=== PATIENT | female | born 1940 | race Caucasian/White ===

== ENCOUNTER 2016-09-19 13:19 | Inpatient (IN) | payer MEDICARE ==
[~2016-09-19] VITALS: Ht 160 cm; Wt 75.8 kg
[~2016-09-19 13:19] MED LIST: CARB0.5D16 RIGHT EYE; COMMODE 3:1; CYMB60CA PO; HCTZ25 PO; LISI40TA PO; PROT40TA PO; SIMV40TA PO; TAB-TAB PO; TOPR50TA PO; WALKER ROLLING; WHEELCHAIR RENTAL RA; XANA1TAB6 PO; ZOLP10TA3 PO
[2016-09-19 13:44] VITALS: BP 109/81; PULSE 116; RESP 20; TEMP 98.1; O2SAT 94
[2016-09-19] MEDS ORDERED: SODIUM CHLOR 0.9% 1000 ML INJ 1,000 ML IV SCH (14:02)
[2016-09-19] MEDS ORDERED: DIPHTH/TETANUS/ACEL PERTUSSIS (BOOSTER) 0.5 ML VIAL/PFS IM ONE (14:15)
[2016-09-19] MEDS ORDERED: ONDANSETRON HCL 4 MG/2 ML VIAL IVP ONE (14:15)
[2016-09-19] MEDS ORDERED: SODIUM CHLORIDE 0.9% FLUSH 5 ML FLUSH IVF PRN ×2 (14:15→20:00)
[2016-09-19] MEDS ORDERED: MORPHINE SULFATE 4 MG/ML INJ IV ONE (14:15)
[2016-09-19] MEDS ORDERED: LIDOCAINE 1%/EPINEPHrine 1:100,000 SOLN 20 ML VIAL INFIL ONE (14:15)
--- NOTE | 2016-09-19 14:15 | PD ---
HPI Chief Complaint: Syncope/Near-Syncope Time Seen by Provider: 13:49 Travel History International Travel<30 days: No Contact w/Intl Traveler<30days: No Traveled to known affect area: No History of Present Illness HPI The patient is a 76-year-old female who presents to the emergency department after a fall at home. According to the , who is a physician, the patient has a history of vertigo. The patient has been treated for vertigo in the past and is currently being referred to [place], [place], for vestibular training. The patient had an episode of vertigo earlier today and tripped and fell at home. The thinks her mother that a loss of consciousness because the patient was slow to respond initially. Upon arrival the patient is awake and alert, does complain of mild vertigo with spinning. The patient does note some pain to left aspect of the head, the right shoulder, left rib cage, and the left aspect of the abdomen. The patient also complains of mild back pain. The patient denies any numbness or tingling of the upper or lower extremities. Patient's last tetanus shot is unknown. The patient's symptoms are moderate, exacerbated after falling, there are no current alleviating factors. PFSH Past Medical History Asthma: Yes Anxiety: Yes Depression: Yes Cancer: Yes (LEFT TONGUE) Cardiovascular Problems: Yes High Cholesterol: Yes Chemotherapy: No Diabetes: No Diminished Hearing: Yes ([place]) Endocrine: No Gastrointestinal Disorders: Yes (ABD CELLULITUS, MESH INFECTION) Gout: Yes Hepatitis: No Hiatal Hernia: No Hypertension: Yes Immune Disorder: No Medical other: No Musculoskeletal: No Neurologic: No Respiratory: Yes (HX PULMONARY EDEMA) Radiation Therapy: No Thyroid Disease: No PNEUMOCCOCAL Vaccine (Year): 1 Menopausal: Yes Past Surgical History Abdominal Surgery: Yes (FAVIAN,COLOSTOMY AND REVERSAL, HERNIA REPAIR UMBILICALX 2,ABDOMINAL HERNIA) Section: Yes Gynecologic Surgery: Yes (C SECTION X 2,HYSTERECTOMY) Hysterectomy: Yes (TOTAL) Oral Surgery: Yes (T&A,LASER RIGHT SIDE TONGUE) Pacemaker: No Other Surgery: Yes (COLON RESECTION) Social History Alcohol Use: No Tobacco Use: No Substance Use: No Allergies-Medications (Allergen,Severity, Reaction): Coded Allergies: Cephalosporins (Verified Allergy, Severe, 03/22/14) ANAPHYLACTIC REACTION Codeine (Verified Allergy, Severe, Rash, 03/22/14) Dilaudid (Unverified Allergy, Severe, 03/22/14) Hydrocodone (Verified Allergy, Severe, 03/22/14) ANAPHYLACTIC REACTION Meperidine (Verified Allergy, Severe, HALLUCINATION, 03/22/14) Penicillin (Verified Allergy, Severe, 03/22/14) HIVES Percocet (Verified Allergy, Severe, 03/22/14) PATIENT STATED COULD NOT TAKE IN PACU 12/03/11 Sulfa (Verified Allergy, Severe, 03/22/14) NAUSEA Reported Meds & Prescriptions Reported Meds & Active Scripts Active Hydrodiuril (Hydrochlorothiazide) 25 Mg Tab 25 Mg PO DAILY Prinivil (Lisinopril) 40 Mg Tab 40 Mg PO DAILY Tears Naturale (Artificial Tears) 15 Ml Soln 1 Drop RIGHT EYE DIRECTED 30 Days Cymbalta (Duloxetine HCl) 60 Mg Cap 60 Mg PO DAILY Ambien 10 Mg Tab (Zolpidem Tartrate) 10 Mg Tab 10 Mg PO HS PRN Xanax 1 mg (Alprazolam) 1 Mg Tab 1 Mg PO TID PRN Protonix (Pantoprazole Sodium) 40 Mg Tabdr 40 Mg PO DAILY Toprol Xl (Metoprolol Succinate) 50 Mg Tabcr 50 Mg PO BID Multivitamin (Multivitamins) 1 Tab Tab 1 Tab PO DAILY Commode 3:1 (Device) Device 1 Ea Wheelchair Rental Removable Arms (Device) Device 1 Ea Walker Rolling (Device) Device 1 Ea Reported Simvastatin 40 Mg Tab 1 Tab PO HS Review of Systems Except as stated in HPI: all other systems reviewed are Neg Eyes: No: Blurred Vision HENT: Positive: Headaches, Vertigo, Neck Pain Cardiovascular: Positive: Chest Pain or Discomfort (left chest wall pain) Respiratory: No: Shortness of Breath Gastrointestinal: Positive: Abdominal Pain, No: Nausea, Vomiting Musculoskeletal: Positive: Pain (right shoulder pain) Neurologic: Positive: Change in Mentation (possible LOC), No: Focal Abnormalities, Paresthesia, Sensory Disturbance Physical Exam Narrative GENERAL: Awake, alert, pleasant 76-year-old female who appears her stated age and is in no acute respiratory distress. SKIN: Superficial abrasion to the right forearm. Superficial laceration above left eyebrow. Old appearing ecchymosis and thin skin to the posterior aspect of the right hand and right forearm.. HEAD: Atraumatic. Normocephalic. EYES: Pupils equal and round. Pupils are 3 mm bilateral and reactive. ENT: No nasal bleeding or discharge. Slightly dry mucous membranes. NECK: Trachea midline. No JVD. Cervical collar in place. CARDIOVASCULAR: Regular rate and rhythm. No murmur appreciated. Tender to palpation over the lateral left chest wall. RESPIRATORY: No accessory muscle use. Clear to auscultation. Breath sounds equal bilaterally. GASTROINTESTINAL: Abdomen soft, tender to palpation over the left upper quadrant as well as mild tenderness of the right upper quadrant. MUSCULOSKELETAL: Tender palpation proximal right humerus. Unable to extend or abduct the right shoulder. Patient is able to extend the right elbow as well as supinate and pronate the right forearm. Patient is able to flex the hips and knees bilaterally, however, causes pain to the mid low back. NEUROLOGICAL: Awake and alert. No obvious cranial nerve deficits. Motor grossly within normal limits. Normal speech. Alert and oriented 4. Follows commands without difficulty. PSYCHIATRIC: Appropriate mood and affect; insight and judgment normal. Data Data Last Documented VS Vital Signs Date Time Temp Pulse Resp B/P Pulse Ox O2 Delivery O2 Flow Rate FiO2 09/19/16 16:47 88 Room Air 09/19/16 16:00 109 18 135/79 2 09/19/16 13:44 98.1 Orders Basic Metabolic Panel (Bmp) (09/19/16 14:02) Complete Blood Count With Diff (09/19/16 14:02) Prothrombin Time / Inr (Pt) (09/19/16 14:02) Act Partial Throm Time (Ptt) (09/19/16 14:02) Type And Screen (09/19/16 14:02) Chest, Single Ap (09/19/16 14:02) Ct Brain W/O Iv Contrast(Rout) (09/19/16 14:02) Ct Cerv Spine W/O Contrast (09/19/16 14:02) Iv Access Insert/Monitor (09/19/16 14:02) Ecg Monitoring (09/19/16 14:02) Oximetry (09/19/16 14:02) Oxygen Administration (09/19/16 14:02) Morphine Inj (Morphine Inj) (09/19/16 14:15) Ondansetron Inj (Zofran Inj) (09/19/16 14:15) Itbc-Qvu-Cgwmma (Booster) Inj (Boostrix (09/19/16 14:15) Sodium Chlor 0.9% 1000 Ml Inj (Ns 1000 M (09/19/16 14:02) Sodium Chloride 0.9% Flush (Ns Flush) (09/19/16 14:15) Shoulder, Limited(2vws) (09/19/16 ) Lidocai-Epi 1%-1:100,000 Inj (Xylocaine- (09/19/16 14:15) Consult Vascular Access Team (09/19/16 ) Vascular Poc Ultrasound (09/19/16 ) Morphine Inj (Morphine Inj) (09/19/16 17:15) Ct Abd/Pel W/O Iv Contrast (09/19/16 ) Ct Thorax/ Chest Wo Iv Contras (09/19/16 ) Sodium Chlorid 0.9% 500 Ml Inj (Ns 500 M (09/19/16 18:00) Labs Laboratory Tests Test 09/19/16 16:24 White Blood Count 14.0 TH/MM3 Red Blood Count 3.85 MIL/MM3 Hemoglobin 12.4 GM/DL Hematocrit 38.0 % Mean Corpuscular Volume 98.7 FL Mean Corpuscular Hemoglobin 32.2 PG Mean Corpuscular Hemoglobin 32.6 % Concent Red Cell Distribution Width 14.5 % Platelet Count 251 TH/MM3 Mean Platelet Volume 9.0 FL Neutrophils (%) (Auto) 79.6 % Lymphocytes (%) (Auto) 13.7 % Monocytes (%) (Auto) 6.4 % Eosinophils (%) (Auto) 0.0 % Basophils (%) (Auto) 0.3 % Neutrophils # (Auto) 11.1 TH/MM3 Lymphocytes # (Auto) 1.9 TH/MM3 Monocytes # (Auto) 0.9 TH/MM3 Eosinophils # (Auto) 0.0 TH/MM3 Basophils # (Auto) 0.0 TH/MM3 CBC Comment DIFF FINAL Differential Comment Prothrombin Time 11.3 SEC Prothromb Time International 1.0 RATIO Ratio Activated Partial 25.0 SEC Thromboplast Time Sodium Level 140 MEQ/L Potassium Level 3.6 MEQ/L Chloride Level 100 MEQ/L Carbon Dioxide Level 31.3 MEQ/L Anion Gap 9 MEQ/L Blood Urea Nitrogen 23 MG/DL Creatinine 2.21 MG/DL Estimat Glomerular Filtration 22 ML/MIN Rate Random Glucose 138 MG/DL Calcium Level 8.9 MG/DL Blood Type O POSITIVE Antibody Screen NEGATIVE Blood Bank Comment MDM Medical Decision Making Medical Screen Exam Complete: Yes Emergency Medical Condition: Yes Medical Record Reviewed: Yes Interpretation(s) Laboratory Tests Test 09/19/16 16:24 White Blood Count 14.0 TH/MM3 Red Blood Count 3.85 MIL/MM3 Hemoglobin 12.4 GM/DL Hematocrit 38.0 % Mean Corpuscular Volume 98.7 FL Mean Corpuscular Hemoglobin 32.2 PG Mean Corpuscular Hemoglobin 32.6 % Concent Red Cell Distribution Width 14.5 % Platelet Count 251 TH/MM3 Mean Platelet Volume 9.0 FL Neutrophils (%) (Auto) 79.6 % Lymphocytes (%) (Auto) 13.7 % Monocytes (%) (Auto) 6.4 % Eosinophils (%) (Auto) 0.0 % Basophils (%) (Auto) 0.3 % Neutrophils # (Auto) 11.1 TH/MM3 Lymphocytes # (Auto) 1.9 TH/MM3 Monocytes # (Auto) 0.9 TH/MM3 Eosinophils # (Auto) 0.0 TH/MM3 Basophils # (Auto) 0.0 TH/MM3 CBC Comment DIFF FINAL Differential Comment Prothrombin Time 11.3 SEC Prothromb Time International 1.0 RATIO Ratio Activated Partial 25.0 SEC Thromboplast Time Sodium Level 140 MEQ/L Potassium Level 3.6 MEQ/L Chloride Level 100 MEQ/L Carbon Dioxide Level 31.3 MEQ/L Anion Gap 9 MEQ/L Blood Urea Nitrogen 23 MG/DL Creatinine 2.21 MG/DL Estimat Glomerular Filtration 22 ML/MIN Rate Random Glucose 138 MG/DL Calcium Level 8.9 MG/DL Last Impressions Head CT 09/19/16 1402 Signed Impressions: Service Date/Time: Monday, September 19, 2016 17:52 - CONCLUSION: Slight scalp swelling without any significant hemorrhage or mass effect. Jason Roach MD Chest X-Ray 09/19/16 1402 Signed Impressions: Service Date/Time: Monday, September 19, 2016 14:38 - CONCLUSION: No acute disease. Beltran Deleon MD FACR Shoulder X-Ray 09/19/16 0000 Signed Impressions: Service Date/Time: Monday, September 19, 2016 14:40 - CONCLUSION: Normal examination for a patient of this age. Beltran Deleon MD FACR CT the abdomen and pelvis reveals enlarged spleen without definite evidence for laceration, however, anxious splenic hematoma and/or parenchymal swelling is suspected. Slight fluid in the perihepatic space. CT of the thorax reveals tiny pericardial effusion and slight bibasilar atelectasis. CT cervical spine reveals neural foramina compromise at C3-4 without any significant thecal sac stenosis. CT the head reveals slight scalp swelling without any significant hemorrhage or mass effect. Differential Diagnosis Differential diagnosis includes multisystem trauma, closed head injury, intracranial hemorrhage, cervical fracture, proximal right humeral fracture, rib fracture, pneumothorax, intra-abdominal injury, vertebral fracture, contusion, abrasion, laceration. Narrative Course IV was established, labs are drawn and sent, and the patient was placed on cardiac telemetry monitoring and continuous pulse oximetry monitoring. CT of the brain, cervical spine, thorax, and abdomen/pelvis were ordered. Chest x- ray was obtained. X-ray the right shoulder was obtained. The patient was administered morphine, Zofran, and IV fluids for her discomfort. Nursing staff was unable to obtain IV access, therefore, the IV access team was able to place an IV. However, creatinine was elevated at 2.21, therefore, CT of the thorax and abdomen/pelvis were performed without IV contrast. I discussed with the patient and at bedside, they have no previous knowledge of renal insufficiency and EMR reveals the patient's last creatinine was normal at 2013. Patient may have underlying dehydration and/or acute renal insufficiency. Therefore, the patient was administered IV fluid bolus. CT of the abdomen/ pelvis reveals probable splenic hematoma and fluid near the liver, CT the thorax reveals tiny pericardial effusion, CT the brain is negative, CT the cervical spine reveals degenerative changes. The patient's C-spine was cleared. I discussed the patient with the trauma surgeon, Dr. Castañeda, who agrees with admission. Type and screen was sent to lab. Physician Communication Physician Communication I discussed the patient with Dr. Castañeda who agrees with admission. Diagnosis Primary Impression: Spleen hematoma Qualified Code: S36.029A - Spleen hematoma, initial encounter Additional Impressions: Fall Qualified Code: W19.XXXA - Fall, initial encounter Shoulder pain, right Qualified Code: M25.511 - Acute pain of right shoulder Condition: Stable Zohaib Pena MD Sep 19, 2016 14:15
--- NOTE | 2016-09-19 14:47 | RADRPT ---
EXAM DATE/TIME: 09/19/2016 14:38 [facility] COMPARISON: No previous studies available for comparison. INDICATIONS : Pain after fall today. MEDICAL HISTORY : None. SURGICAL HISTORY : None. ENCOUNTER: Initial ACUITY: 1 day PAIN SCORE: 9/10 LOCATION: Right shoulder. FINDINGS: A single view of the chest demonstrates the lungs to be symmetrically aerated without evidence of mas s, infiltrate or effusion. The cardiomediastinal contours are unremarkable. Osseous structures are intact. CONCLUSION: No acute disease. Beltran Deleon MD FACR on September 19, 2016 at 14:45 Board Certified Radiologist. This report was verified electronically.
--- NOTE | 2016-09-19 14:50 | RADRPT ---
EXAM DATE/TIME: 09/19/2016 14:40 [facility] COMPARISON: No previous studies available for comparison. INDICATIONS : Pain after fall. MEDICAL HISTORY : None. SURGICAL HISTORY : None. ENCOUNTER: Initial ACUITY: 1 day PAIN SCORE: 9/10 LOCATION: Right shoulder. FINDINGS: Two view examination of the right shoulder demonstrates no evidence of fracture or dislocation. The glenohumeral and acromioclavicular joints are maintained. Bony mineralization is normal. CONCLUSION: Normal examination for a patient of this age. Beltran Deleon MD FACR on September 19, 2016 at 14:47 Board Certified Radiologist. This report was verified electronically.
[2016-09-19 16:00] VITALS: BP 135/79; PULSE 109; RESP 18; O2SAT 94
[2016-09-19 16:25] VITALS: O2SAT 94
[2016-09-19] MEDS ORDERED: MORPHINE SULFATE 4 MG/ML INJ IV PUSH ONE (17:15)
[2016-09-19 17:17] LABS: AUTOMATED NEUTROPHIL # 11.1 TH/MM3 (1.8-7.7); BASOPHIL % 0.3 % (0.0-2.0); HEMO FLAGS DIFF FINAL; LYMPH % 13.7 % (9.0-44.0); LYMPHOCYTE # 1.9 TH/MM3 (1.0-4.8); MEAN CELL VOLUME 98.7 FL (80.0-100.0); MEAN CORPUSCULAR HEMOGLOBIN 32.2 PG (27.0-34.0); MEAN CORPUSCULAR HGB CONC 32.6 % (32.0-36.0); MONO % 6.4 % (0.0-8.0); NEUT % 79.6 % (16.0-70.0); PLATELET COUNT 251 TH/MM3 (150-450); RED BLOOD COUNT 3.85 MIL/MM3 (4.00-5.30); RED CELL DISTRIBUTION WIDTH 14.5 % (11.6-17.2)
[2016-09-19 17:29] LABS: PROTHROMBIN TIME - PATIENT 11.3 SEC (9.8-11.6)
[2016-09-19 17:37] LABS: BICARBONATE 31.3 MEQ/L (21.0-32.0); POTASSIUM 3.6 MEQ/L (3.5-5.1)
[2016-09-19] MEDS ORDERED: SODIUM CHLORID 0.9% 500 ML INJ 500 ML IV ONE (18:00)
--- NOTE | 2016-09-19 18:13 | RADRPT ---
EXAM DATE/TIME: 09/19/2016 17:52 [facility] COMPARISON: CT BRAIN W/O CONTRAST, January 25, 2014, 16:11. INDICATIONS : Fall at home today; general malaise. RADIATION DOSE: 56.35 CTDIvol (mGy) MEDICAL HISTORY : Cardiovascular disease. Hypertension. Hernia, umbilical. SURGICAL HISTORY : Cholecystectomy. Colostomy. section.Hysterectomy; colostomy reversal. ENCOUNTER: Initial ACUITY: 1 day PAIN SCALE: 3/10 LOCATION: cranial TECHNIQUE: Multiple contiguous axial images were obtained of the head. Using automated exposure control and adj ustment of the mA and/or kV according to patient size, radiation dose was kept as low as reasonably a chievable to obtain optimal diagnostic quality images. FINDINGS: There is no evidence for intracranial hemorrhage, mass effect, mass lesions, or edema. The visualize d bony structures appear intact. Slight degree of brain atrophy is seen. Slight periventricular whit e matter changes are seen nonspecific mostly consistent with chronic small vessel ischemic changes. There are no signs of acute infarction for technique. Slight scalp swelling is present on the left si de with mucoperiosteal thickening within multiple sinuses. CONCLUSION: Slight scalp swelling without any significant hemorrhage or mass effect. Jason Roach MD on September 19, 2016 at 18:09 Board Certified Radiologist. This report was verified electronically.
[2016-09-19 18:15] VITALS: BP 122/77; PULSE 106; RESP 18; O2SAT 92
--- NOTE | 2016-09-19 18:28 | RADRPT ---
EXAM DATE/TIME: 09/19/2016 17:57 [facility] COMPARISON: No previous studies available for comparison. INDICATIONS : Fall at home today; general malaise. RADIATION DOSE: 35.32 CTDIvol (mGy) MEDICAL HISTORY : Cardiovascular disease. Hypertension. Hernia, umbilical. SURGICAL HISTORY : Cholecystectomy. Colostomy. section.Hysterectomy; colostomy reversal. ENCOUNTER: Initial ACUITY: 1 day PAIN SCALE: 3/10 LOCATION: neck TECHNIQUE: Volumetric scanning of the cervical spine was performed. Multiplanar reconstructions in the sagittal, coronal and oblique axial planes were performed. Using automated exposure control and adjustment o f the mA and/or kV according to patient size, radiation dose was kept as low as reasonably achievable to obtain optimal diagnostic quality images. FINDINGS: No definite fracture is seen for technique. Minimal degenerative subluxation C5-C6 is identified . There is loss of cervical lordosis. C2-C3: There is no evidence for any significant compromise to the thecal sac, or the exiting nerve roots. N o appreciable thecal sac stenosis is seen. The neural foramina and lateral recess appear patent bila terally. C3-C4: There is moderate neural foramina compromise on the left due to asymmetrical bulging disc and hypertr ophic changes. No significant thecal sac stenosis is seen. C4-C5: Slight degenerative changes are seen within the disc space and facets. There is no evidence for any s ignificant compromise to the thecal sac, or the exiting nerve roots. No appreciable thecal sac steno sis is seen. The neural foramina and lateral recess appear patent bilaterally. C5-C6: Significant degenerative changes are seen within the disc space and facets. Slight bulging disc and h ypertrophic changes are seen with indentation on the thecal sac and no significant compromise to the thecal sac or the exiting nerve roots. C6-C7: Slight degenerative changes are seen within the disc space and facets. Slight bulging disc and hypert rophic changes are seen with indentation on the thecal sac and no significant compromise to the theca l sac or the exiting nerve roots. C7-T1: There is no evidence for any significant compromise to the thecal sac, or the exiting nerve roots. N o appreciable thecal sac stenosis is seen. The neural foramina and lateral recess appear patent bila terally. CONCLUSION: Neural foramina compromise at C3-4 without any significant thecal sac stenosis. Jason Roach MD on September 19, 2016 at 18:22 Board Certified Radiologist. This report was verified electronically.
--- NOTE | 2016-09-19 18:38 | RADRPT ---
EXAM DATE/TIME: 09/19/2016 17:57 [facility] COMPARISON: CT ABDOMEN & PELVIS W/O CONTRAST, October 31, 2011, 5:45. INDICATIONS : Fall at home today; general malaise. ORAL CONTRAST: No oral contrast ingested. RADIATION DOSE: 8.36 CTDIvol (mGy) ; Combined studies - Thorax/Abdomen/Pelvis MEDICAL HISTORY : Cardiovascular disease. Hypertension. Hernia, umbilical. SURGICAL HISTORY : Cholecystectomy. Colostomy.Hysterectomy.; colostomy reversal. ENCOUNTER: Initial ACUITY: 1 day PAIN SCALE: 6/10 LOCATION: Abdomen/pelvis TECHNIQUE: Volumetric scanning of the abdomen and pelvis was performed. Using automated exposure control and adjustment of the mA and/or kV according to patient size, radiation dose was kept as low as reasonably achievable to obtain optimal diagnostic quality images. FINDINGS: CT Abdomen: The spleen is enlarged measuring 14.1 cm in craniocaudal dimension with strandy densities surrounding the spleen which extends into the left paracolic gutter. This is inhomogeneous and the a ppearance is new not present on the prior study from 2011 highly suspicious for intraspinal hematoma. There is slight fluid in the perihepatic space with an approximate 2.2 cm cyst in the left hepatic l obe. Coronary artery calcifications are seen typically seen with CAD and need to be evaluated clinica lly. The pancreas, kidneys, adrenals are unremarkable. There is no evidence for any appreciable patho logical adenopathy, free fluid, or bowel obstruction. CT pelvis: There is no evidence for mass, abscess formation, or any significant adenopathy within the pelvis. There is moderate amount of stool throughout the colon. CONCLUSION: 1. Enlarged spleen without definite evidence for laceration, however intrasplenic hematoma and/or par enchymal swelling is suspected. 2. Slight fluid in the perihepatic space. Jason Roach MD on September 19, 2016 at 18:30 Board Certified Radiologist. This report was verified electronically.
--- NOTE | 2016-09-19 18:40 | RADRPT ---
EXAM DATE/TIME: 09/19/2016 17:57 [facility] COMPARISON: No previous studies available for comparison. INDICATIONS : Fall at home today; general malaise. RADIATION DOSE: 8.36 CTDIvol (mGy) ; Combined studies - Thorax/Abdomen/Pelvis MEDICAL HISTORY : Cardiovascular disease. Hypertension. Hernia, umbilical. SURGICAL HISTORY : Cholecystectomy. Colostomy.Hysterectomy. ; colostomy reversal. ENCOUNTER: Initial ACUITY: 1 day PAIN SCALE: 5/10 LOCATION: chest TECHNIQUE: Volumetric scanning of the chest was performed. Using automated exposure control and adjustment of t he mA and/or kV according to patient size, radiation dose was kept as low as reasonably achievable to obtain optimal diagnostic quality images. FINDINGS: The lungs are clear without infiltrate, nodule, or mass except for slight bibasilar atelectasis. The re is no pleural effusion. No appreciable pathological adenopathy is seen within the mediastinum. Co ronary artery calcifications are seen typically seen with CAD and need to be evaluated clinically. Ti ny pericardial effusion is seen. There are findings in the upper abdomen discussed on the patient's C T abdomen. CONCLUSION: Tiny pericardial effusion and slight bibasilar atelectasis. Jason Roach MD on September 19, 2016 at 18:36 Board Certified Radiologist. This report was verified electronically.
--- NOTE | 2016-09-19 18:59 | PD ---
Physical Exam Time Seen by Provider: 18:30 Data Data Last Documented VS Vital Signs Date Time Temp Pulse Resp B/P Pulse Ox O2 Delivery O2 Flow Rate FiO2 09/19/16 18:15 106 18 122/77 92 Nasal Cannula 2 09/19/16 13:44 98.1 Orders Basic Metabolic Panel (Bmp) (09/19/16 14:02) Complete Blood Count With Diff (09/19/16 14:02) Prothrombin Time / Inr (Pt) (09/19/16 14:02) Act Partial Throm Time (Ptt) (09/19/16 14:02) Type And Screen (09/19/16 14:02) Chest, Single Ap (09/19/16 14:02) Ct Brain W/O Iv Contrast(Rout) (09/19/16 14:02) Ct Cerv Spine W/O Contrast (09/19/16 14:02) Iv Access Insert/Monitor (09/19/16 14:02) Ecg Monitoring (09/19/16 14:02) Oximetry (09/19/16 14:02) Oxygen Administration (09/19/16 14:02) Morphine Inj (Morphine Inj) (09/19/16 14:15) Ondansetron Inj (Zofran Inj) (09/19/16 14:15) Ejsy-Isc-Xrqhpn (Booster) Inj (Boostrix (09/19/16 14:15) Sodium Chlor 0.9% 1000 Ml Inj (Ns 1000 M (09/19/16 14:02) Sodium Chloride 0.9% Flush (Ns Flush) (09/19/16 14:15) Shoulder, Limited(2vws) (09/19/16 ) Lidocai-Epi 1%-1:100,000 Inj (Xylocaine- (09/19/16 14:15) Consult Vascular Access Team (09/19/16 ) Vascular Poc Ultrasound (09/19/16 ) Morphine Inj (Morphine Inj) (09/19/16 17:15) Ct Abd/Pel W/O Iv Contrast (09/19/16 ) Ct Thorax/ Chest Wo Iv Contras (09/19/16 ) Sodium Chlorid 0.9% 500 Ml Inj (Ns 500 M (09/19/16 18:00) Admit Order (Ed Use Only) (09/19/16 18:55) Labs Laboratory Tests Test 09/19/16 16:24 White Blood Count 14.0 TH/MM3 Red Blood Count 3.85 MIL/MM3 Hemoglobin 12.4 GM/DL Hematocrit 38.0 % Mean Corpuscular Volume 98.7 FL Mean Corpuscular Hemoglobin 32.2 PG Mean Corpuscular Hemoglobin 32.6 % Concent Red Cell Distribution Width 14.5 % Platelet Count 251 TH/MM3 Mean Platelet Volume 9.0 FL Neutrophils (%) (Auto) 79.6 % Lymphocytes (%) (Auto) 13.7 % Monocytes (%) (Auto) 6.4 % Eosinophils (%) (Auto) 0.0 % Basophils (%) (Auto) 0.3 % Neutrophils # (Auto) 11.1 TH/MM3 Lymphocytes # (Auto) 1.9 TH/MM3 Monocytes # (Auto) 0.9 TH/MM3 Eosinophils # (Auto) 0.0 TH/MM3 Basophils # (Auto) 0.0 TH/MM3 CBC Comment DIFF FINAL Differential Comment Prothrombin Time 11.3 SEC Prothromb Time International 1.0 RATIO Ratio Activated Partial 25.0 SEC Thromboplast Time Sodium Level 140 MEQ/L Potassium Level 3.6 MEQ/L Chloride Level 100 MEQ/L Carbon Dioxide Level 31.3 MEQ/L Anion Gap 9 MEQ/L Blood Urea Nitrogen 23 MG/DL Creatinine 2.21 MG/DL Estimat Glomerular Filtration 22 ML/MIN Rate Random Glucose 138 MG/DL Calcium Level 8.9 MG/DL Blood Type O POSITIVE Antibody Screen NEGATIVE Blood Bank Comment [facility] Medical Record Reviewed: Yes Supervised Visit with FELICIA: No Narrative Course This patient presents with laceration to the left eyebrow, was asked to repair the laceration. The patient verbally consents to laceration repair. Procedures Procedure Narrative LACERATION LOCATION: Left eyebrow LENGTH: 1 cm NUMBER OF STITCHES/KALE: 4 REPAIR: The area of the laceration was prepped with Betadine and sterilely draped. The laceration was infiltrated with 1% lidocaine with epinephrine. The wound was copiously irrigated and explored without evidence of foreign body , tendon injury or neurovascular injury. The wound was closed using 6-0 prolene simple interrupted. This was a single layer repair. A sterile dressing was applied. The patient was advised to keep the dressing clean and dry. Patient tolerated the procedure well. Diagnosis Primary Impression: Spleen hematoma Qualified Code: S36.029A - Spleen hematoma, initial encounter Additional Impressions: Shoulder pain, right Qualified Code: M25.511 - Acute pain of right shoulder Fall Qualified Code: W19.XXXA - Fall, initial encounter Condition: Stable Breezy Koo Sep 19, 2016 18:59
[2016-09-19 19:16] VITALS: BP 122/77; PULSE 106; RESP 18; O2SAT 92
--- NOTE | 2016-09-19 19:55 | HHI.HP ---
[facility] Service Critical Care Medicine Primary Care Physician Jourdan Reyes MD Admission Diagnosis splenic hematoma, fall, right shoulder pain Diagnosis: Chief Complaint: Right shoulder pain, abdominal pain, vertigo Travel History International Travel<30 Days: No Contact w/Intl Traveler <30 Da: No Traveled to Known Affected Are: No History of Present Illness 76-year-old woman who fell earlier today. She was found facedown by her with a laceration over her left eye. According to him she's fallen at least 7 times the past week. She says usually she is able to catch herself as she senses episode of vertigo prior to falling there was reportedly a brief loss of consciousness. She complains of right shoulder pain and abdominal pain. She has an elevated creatinine likely from a recent bout of urosepsis. He is currently experiencing a significant functional decline per the patient and her . Review of Systems Constitutional: COMPLAINS OF: Fatigue, Dizziness Endocrine: DENIES: Abnorml menstrual pattern, Heat/cold intolerance, Polydipsia , Polyuria, Polyphagia Eyes: DENIES: Blurred vision, Diplopia, Eye inflammation, Eye pain, Vision loss , Photosensitivity, Double Vision Ears, nose, mouth, throat: COMPLAINS OF: Hearing loss, Vertigo Respiratory: COMPLAINS OF: Cough Cardiovascular: DENIES: Chest pain, Palpitations, Syncope, Dyspnea on Exertion , PND, Lower Extremity Edema, Orthopnea, Claudication Gastrointestinal: COMPLAINS OF: Abdominal pain, DENIES: Black stools, Bloody stools, Constipation, Diarrhea, Nausea, Vomiting, Difficulty Swallowing, Anorexia Genitourinary: DENIES: Abnormal vaginal bleeding, Urgency, Dysuria Musculoskeletal: COMPLAINS OF: Joint pain (she is recovered from her recent flareup of gout) Integumentary: DENIES: Abnormal pigmentation, Pruritus, Rash, Nail changes, Breast masses, Breast skin changes, Nipple discharge Hematologic/lymphatic: DENIES: Bruising, Lymphadenopathy Immunologic/allergic: DENIES: Eczema, Urticaria Neurologic: COMPLAINS OF: Poor Balance, DENIES: Abnormal gait, Headache, Localized weakness, Paresthesias, Seizures, Speech Problems, Tremor Psychiatric: COMPLAINS OF: Anxiety, DENIES: Confusion, Mood changes, Depression, Hallucinations, Agitation, Suicidal Ideation, Homicidal Ideation, Delusions Past Family Social History Allergies: Coded Allergies: Cephalosporins (Verified Allergy, Severe, 03/22/14) ANAPHYLACTIC REACTION Codeine (Verified Allergy, Severe, Rash, 03/22/14) Dilaudid (Unverified Allergy, Severe, 03/22/14) Hydrocodone (Verified Allergy, Severe, 03/22/14) ANAPHYLACTIC REACTION Meperidine (Verified Allergy, Severe, HALLUCINATION, 03/22/14) Penicillin (Verified Allergy, Severe, 03/22/14) HIVES Percocet (Verified Allergy, Severe, 03/22/14) PATIENT STATED COULD NOT TAKE IN PACU 12/03/11 Sulfa (Verified Allergy, Severe, 03/22/14) NAUSEA Past Medical History Anxiety, asthma, hypercholesterolemia, gout, recent hearing loss, tongue cancer Past Surgical History Hari's procedure with colostomy reversal, 2, hysterectomy Reported Medications Hydrochlorothiazide, lisinopril, Cymbalta, Xanax, Ambien, Protonix, Toprol XL, colchicine Family History Review not relevant Social History Denies alcohol tobacco or illegal drug use Physical Exam Vital Signs Vital Signs Date Time Temp Pulse Resp B/P Pulse Ox O2 Delivery O2 Flow Rate FiO2 09/19/16 19:16 106 18 122/77 92 Nasal Cannula 4 09/19/16 18:15 106 18 122/77 92 Nasal Cannula 2 09/19/16 16:47 88 Room Air 09/19/16 16:25 94 Room Air 09/19/16 16:25 94 Room Air 09/19/16 16:00 109 18 135/79 94 Nasal Cannula 2 09/19/16 13:50 116 18 94 Room Air 09/19/16 13:44 98.1 116 20 109/81 94 Physical Exam Alert and oriented in no acute distress Head-small laceration over her left thigh which is already sutured, otherwise atraumatic, normocephalic Pupils equal round reactive to light, extraocular movements intact sclerae nonicteric conjunctiva was pink Neck soft trachea is midline, no cervical tenderness to palpation Lungs clear to auscultation bilaterally, there is no chest wall tenderness or crepitus to palpation Abdomen soft, no peritoneal signs, she has left upper quadrant tenderness to deep palpation and right upper quadrant tenderness to deep palpation Pelvis stable nontender femoral pulses palpable bilaterally No clubbing cyanosis or edema, she has dorsalis pedis pulses palpable bilaterally Right shoulder tenderness Mood and affect are appropriate Cranial nerves II through XII appear grossly intact Laboratory Laboratory Tests Test 09/19/16 16:24 White Blood Count 14.0 Red Blood Count 3.85 Hemoglobin 12.4 Hematocrit 38.0 Mean Corpuscular Volume 98.7 Mean Corpuscular Hemoglobin 32.2 Mean Corpuscular Hemoglobin 32.6 Concent Red Cell Distribution Width 14.5 Platelet Count 251 Mean Platelet Volume 9.0 Neutrophils (%) (Auto) 79.6 Lymphocytes (%) (Auto) 13.7 Monocytes (%) (Auto) 6.4 Eosinophils (%) (Auto) 0.0 Basophils (%) (Auto) 0.3 Neutrophils # (Auto) 11.1 Lymphocytes # (Auto) 1.9 Monocytes # (Auto) 0.9 Eosinophils # (Auto) 0.0 Basophils # (Auto) 0.0 CBC Comment DIFF FINAL Differential Comment Prothrombin Time 11.3 Prothromb Time International 1.0 Ratio Activated Partial 25.0 Thromboplast Time Sodium Level 140 Potassium Level 3.6 Chloride Level 100 Carbon Dioxide Level 31.3 Anion Gap 9 Blood Urea Nitrogen 23 Creatinine 2.21 Estimat Glomerular Filtration 22 Rate Random Glucose 138 Calcium Level 8.9 Blood Type O POSITIVE Antibody Screen NEGATIVE Blood Bank Comment Result Diagram: 09/19/16 1624 09/19/16 1624 Imaging Last Impressions Head CT 09/19/16 1402 Signed Impressions: Service Date/Time: Monday, September 19, 2016 17:52 - CONCLUSION: Slight scalp swelling without any significant hemorrhage or mass effect. Jason Roach MD Chest X-Ray 09/19/16 1402 Signed Impressions: Service Date/Time: Monday, September 19, 2016 14:38 - CONCLUSION: No acute disease. Beltran Deleon MD FACR Cervical Spine CT 09/19/16 1402 Signed Impressions: Service Date/Time: Monday, September 19, 2016 17:57 - CONCLUSION: Neural foramina compromise at C3-4 without any significant thecal sac stenosis. Jason Roach MD Shoulder X-Ray 09/19/16 0000 Signed Impressions: Service Date/Time: Monday, September 19, 2016 14:40 - CONCLUSION: Normal examination for a patient of this age. Beltran Deleon MD FACR Chest CT 09/19/16 0000 Signed Impressions: Service Date/Time: Monday, September 19, 2016 17:57 - CONCLUSION: Tiny pericardial effusion and slight bibasilar atelectasis. Jason Roach MD Abdomen/Pelvis CT 09/19/16 0000 Signed Impressions: Service Date/Time: Monday, September 19, 2016 17:57 - CONCLUSION: 1. Enlarged spleen without definite evidence for laceration, however intrasplenic hematoma and/or parenchymal swelling is suspected. 2. Slight fluid in the perihepatic space. Jason Roach MD Assessment and Plan Assessment and Plan Patient suffers from a deconditioned state with chronic vertigo. She has an elevated creatinine, likely from a recent bout of urosepsis. CT scan without contrast shows likely intrasplenic hematoma. Plan Will admit patient to the trauma ICU for serial hemoglobins and continuous hemodynamic monitoring. If she drops her hemoglobin or her blood pressure she may require CT scan with IV contrast to evaluate for active extravasation and possible angiogram with embolization. She'll be hydrated for renal protection PT OT for gait assessment Case management to evaluate for possible placement, possible home health with ADLs Discussed Condition With Patient, , nurse, ED physician Greg Castañeda MD Sep 19, 2016 19:55
[2016-09-19] MEDS ORDERED: CHLORHEXIDINE GLUCONATE 2 % 1 PACK (2 CLOTHS) TOP PRN (20:00)
[2016-09-19] MEDS ORDERED: ACETAMINOPHEN 325 MG TAB PO PRN (20:00)
[2016-09-19] MEDS ORDERED: ENALAPRILAT 1.25 MG/ML VIAL IV PRN (20:00)
[2016-09-19] MEDS ORDERED: MISCELLANEOUS NURSING INFORMATION XX SCH (20:00)
[2016-09-19] MEDS ORDERED: ALPRAZolam 1 MG TAB PO PRN (20:00)
[2016-09-19] MEDS ORDERED: ZOLPIDEM TARTRATE 10 MG TAB PO PRN (20:00)
[2016-09-19] MEDS: SODIUM CHLOR 0.9% 1000 ML INJ 1,000 ML IV SCH (20:57)
[2016-09-19] MEDS: ONDANSETRON HCL 4 MG/2 ML VIAL IV PRN (21:43)
[2016-09-19] MEDS: MORPHINE SULFATE 8 MG/ML INJ IV PUSH PRN (21:44)
[2016-09-19] MEDS: BACITRACIN TOP OINT 15 GM TUBE TOP SCH (21:44)
[2016-09-19] MEDS: DOCUSATE SODIUM 100 MG CAP PO SCH (21:44)
[2016-09-19 21:47] VITALS: BP 115/74; PULSE 107; RESP 18; O2SAT 94
[2016-09-20] VITALS (10 sets, daily range): BP systolic 107–137; BP diastolic 68–90; PULSE 92–111; RESP 17–20; TEMP 95.9–98.6; O2SAT 93–97
[2016-09-20] MEDS: MORPHINE SULFATE 8 MG/ML INJ IV PUSH PRN ×5 (01:39→18:05)
[2016-09-20] MEDS: SODIUM CHLOR 0.9% 1000 ML INJ 1,000 ML IV SCH ×2 (02:35→20:35)
[2016-09-20] MEDS: ONDANSETRON HCL 4 MG/2 ML VIAL IV PRN (03:40)
[2016-09-20] MEDS: CHLORHEXIDINE GLUCONATE 2 % 1 PACK (2 CLOTHS) TOP SCH (04:00)
[2016-09-20 04:56] LABS: AUTOMATED NEUTROPHIL # 9.5 TH/MM3 (1.8-7.7); BASOPHIL % 0.3 % (0.0-2.0); EOSINOPHIL % 0.3 % (0.0-4.0); HEMATOCRIT 30.8 % (35.0-46.0); HEMO FLAGS DIFF FINAL; LYMPH % 16.7 % (9.0-44.0); LYMPHOCYTE # 2.2 TH/MM3 (1.0-4.8); MEAN CELL VOLUME 98.9 FL (80.0-100.0); MEAN CORPUSCULAR HEMOGLOBIN 32.5 PG (27.0-34.0); MEAN CORPUSCULAR HGB CONC 32.9 % (32.0-36.0); MONO % 9.4 % (0.0-8.0); NEUT % 73.3 % (16.0-70.0); PLATELET COUNT 220 TH/MM3 (150-450); RED BLOOD COUNT 3.11 MIL/MM3 (4.00-5.30); RED CELL DISTRIBUTION WIDTH 14.8 % (11.6-17.2); WHITE BLOOD COUNT 12.9 TH/MM3 (4.0-11.0)
[2016-09-20 05:14] LABS: BICARBONATE 27.7 MEQ/L (21.0-32.0); POTASSIUM 3.5 MEQ/L (3.5-5.1)
[2016-09-20] MEDS: METOPROLOL SUCCINATE 50 MG EXTENDED RELEASE TAB PO SCH (08:29)
[2016-09-20] MEDS: HYDROCHLOROTHIAZIDE 25 MG TAB PO SCH (08:30)
[2016-09-20] MEDS: MULTIVITAMIN TAB PO SCH (08:30)
[2016-09-20] MEDS: DOCUSATE SODIUM 100 MG CAP PO SCH ×2 (08:30→20:34)
[2016-09-20] MEDS: LISINOPRIL 20 MG TAB PO SCH (08:30)
[2016-09-20] MEDS: PANTOPRAZOLE SOD 40 MG DELAYED RELEASE TAB PO SCH (08:30)
[2016-09-20] MEDS: DULoxetine HCl DR 60 MG CAP PO SCH (08:30)
[2016-09-20] MEDS: BACITRACIN TOP OINT 15 GM TUBE TOP SCH ×2 (09:00→20:35)
[2016-09-20] MEDS: COLCHICINE 0.6 MG TAB PO SCH (11:55)
--- NOTE | 2016-09-20 15:29 | HHI.PR ---
Subjective Subjective Notes PTD: 1 Patient states "I think and feeling better." She does not complain of any pain to her abdomen on palpation. Objective Vitals/I&O Vital Signs Date Time Temp Pulse Resp B/P Pulse Ox O2 Delivery O2 Flow Rate FiO2 09/20/16 12:00 97.8 92 17 118/78 95 09/20/16 01:42 Nasal Cannula 2 Labs Laboratory Tests Test 09/19/16 09/20/16 16:24 04:19 White Blood Count 14.0 12.9 Red Blood Count 3.85 3.11 Hemoglobin 12.4 10.1 Hematocrit 38.0 30.8 Mean Corpuscular Volume 98.7 98.9 Mean Corpuscular Hemoglobin 32.2 32.5 Mean Corpuscular Hemoglobin 32.6 32.9 Concent Red Cell Distribution Width 14.5 14.8 Platelet Count 251 220 Mean Platelet Volume 9.0 8.9 Neutrophils (%) (Auto) 79.6 73.3 Lymphocytes (%) (Auto) 13.7 16.7 Monocytes (%) (Auto) 6.4 9.4 Eosinophils (%) (Auto) 0.0 0.3 Basophils (%) (Auto) 0.3 0.3 Neutrophils # (Auto) 11.1 9.5 Lymphocytes # (Auto) 1.9 2.2 Monocytes # (Auto) 0.9 1.2 Eosinophils # (Auto) 0.0 0.0 Basophils # (Auto) 0.0 0.0 CBC Comment DIFF FINAL DIFF FINAL Differential Comment Prothrombin Time 11.3 Prothromb Time International 1.0 Ratio Activated Partial 25.0 Thromboplast Time Sodium Level 140 141 Potassium Level 3.6 3.5 Chloride Level 100 105 Carbon Dioxide Level 31.3 27.7 Anion Gap 9 8 Blood Urea Nitrogen 23 26 Creatinine 2.21 1.50 Estimat Glomerular Filtration 22 34 Rate Random Glucose 138 130 Calcium Level 8.9 7.8 Blood Type O POSITIVE Antibody Screen NEGATIVE Blood Bank Comment Radiology Last Impressions Head CT 09/19/16 1402 Signed Impressions: Service Date/Time: Monday, September 19, 2016 17:52 - CONCLUSION: Slight scalp swelling without any significant hemorrhage or mass effect. Jason Roach MD Chest X-Ray 09/19/16 1402 Signed Impressions: Service Date/Time: Monday, September 19, 2016 14:38 - CONCLUSION: No acute disease. Beltran Deleon MD FACR Cervical Spine CT 09/19/16 1402 Signed Impressions: Service Date/Time: Monday, September 19, 2016 17:57 - CONCLUSION: Neural foramina compromise at C3-4 without any significant thecal sac stenosis. Jason Roach MD Shoulder X-Ray 09/19/16 0000 Signed Impressions: Service Date/Time: Monday, September 19, 2016 14:40 - CONCLUSION: Normal examination for a patient of this age. Beltran Deleon MD FACR Chest CT 09/19/16 0000 Signed Impressions: Service Date/Time: Monday, September 19, 2016 17:57 - CONCLUSION: Tiny pericardial effusion and slight bibasilar atelectasis. Jason Roach MD Abdomen/Pelvis CT 09/19/16 0000 Signed Impressions: Service Date/Time: Monday, September 19, 2016 17:57 - CONCLUSION: 1. Enlarged spleen without definite evidence for laceration, however intrasplenic hematoma and/or parenchymal swelling is suspected. 2. Slight fluid in the perihepatic space. Jason Roach MD Narrative Exam GENERAL: This is a 76-year-old female sitting on a stretcher in no distress. SKIN: Warm and dry. HEAD: Atraumatic. Normocephalic. EYES: PERRLA ENT: No nasal bleeding or discharge. Mucous membranes pink and moist. NECK: Trachea midline. No JVD. CARDIOVASCULAR: Regular rate and rhythm. RESPIRATORY: No accessory muscle use. Lungs are clear to auscultation. Breath sounds equal bilaterally. No distress or dyspnea. GASTROINTESTINAL: BS + x 4 quads. Abdomen soft, non-tender, nondistended. No complaints of pain on palpation of all 4 quadrants. MUSCULOSKELETAL: Extremities without cyanosis, or edema. + peripheral pulses x 4 extremities. Warm with good capillary refill and sensation. MAEW. NEUROLOGICAL: Awake and alert. Normal speech and pattern. A/P Problem List: (1) Spleen hematoma (2) Shoulder pain, right (3) Fall Assessment and Plan [place]: This is a 76-year-old female who was found face down by her . (She has fallen at least 7 times in the past week.) Brief LOC. Patient is experiencing a significant decline in function at home. INJURIES: LEFT eyebrow (4 sutures) C3-C4 neural foramina compromise Slight pericardial effusion ?Enlarged spleen? - hematoma vs swelling Diet: Regular diet. Tolerating po diet. Encourage good po intake with each meal. Pulmonary: Encourage good pulmonary toileting. IS at bedside and pt encouraged to use. Rationale for use explained to patient, and verbalized understanding. PAIN Management: Tylenol po. Morphine IV as needed for breakthrough pain. ( Xanax) Follow H&H q 6H today Activity: BR. PT ordered. GI prophylaxis: Protonix po Bowel regimen: Colace. DVT prophylaxis: Mechanical VTE with SCDs. Chemical management contraindicated at this time. DC Planning: Case management consulted for assistance with final discharge disposition. She may need full-time placement in a SNF. Emotional support provided to patient and family at bedside and plan of care discussed. Discussed with RN at bedside Patient is hemodynamically stable and being managed on the med/surg floor. Problem Qualifiers (1) Spleen hematoma: Qualified Code: S36.029A - Spleen hematoma, initial encounter (2) Shoulder pain, right: Qualified Code: M25.511 - Acute pain of right shoulder (3) Fall: Qualified Code: W19.XXXA - Fall, initial encounter Bere Piña Sep 20, 2016 15:29
[2016-09-20 16:30] LABS: HEMATOCRIT 28.5 % (35.0-46.0); REVIEW FLAG FINAL
[2016-09-21] VITALS (9 sets, daily range): BP systolic 112–133; BP diastolic 56–64; PULSE 74–94; RESP 14–22; TEMP 96.9–98.9; O2SAT 93–98
[2016-09-21] MEDS: RESP: ALBUTEROL 2.5 MG/IPRATROPIUM 0.5 MG NEB (PRN) NEB ×4 (00:12→22:42)
[2016-09-21 00:39] LABS: HEMATOCRIT 26.5 % (35.0-46.0); REVIEW FLAG FINAL
[2016-09-21] MEDS ORDERED: IODIXANOL 320 MG/ML 10 ML VIAL (for RAD SPEC) IV ONE (03:05)
--- NOTE | 2016-09-21 03:28 | RADRPT ---
EXAM DATE/TIME: 09/21/2016 03:01 [facility] COMPARISON: Chest CT dated 09/19/2016. INDICATIONS : Short of breath. IV CONTRAST: 46 cc Visipaque (iodixanol) IV ; Cumulative dose for multiple exams. RADIATION DOSE: 16.87 CTDIvol (mGy) ; Combined studies - Thorax/Abdomen/Pelvis MEDICAL HISTORY : Cardiovascular disease. Hypertension. Gastroesophageal reflux disease.Tongue cancer. Umbilical hernia . SURGICAL HISTORY : section. Cholecystectomy.Hysterectomy.Colostomy reversal. ENCOUNTER: Subsequent ACUITY: 1 day PAIN SCALE: 0/10 LOCATION: chest TECHNIQUE: Volumetric scanning of the chest was performed. Using automated exposure control and adjustment of t he mA and/or kV according to patient size, radiation dose was kept as low as reasonably achievable to obtain optimal diagnostic quality images. FINDINGS: LUNGS: There is trace pleural fluid bilaterally with atelectasis in both lower lobes. A wedge-shaped area of low density is present in the right upper lobe and may represent fluid along the superior aspect of the major fissure versus consolidation. No pneumothorax is present. There is respiratory motion artif act. PLEURA: There are trace pleural effusions bilaterally. MEDIASTINUM: The heart and great vessels demonstrate no acute abnormality. Coronary artery calcification is prese nt. There is no mediastinal or hilar lymphadenopathy. AXILLAE: Within normal limits. No lymphadenopathy. SKELETAL: There are degenerative changes of the thoracic spine. MISCELLANEOUS: Bilateral breast implants are present. Please refer to abdomen and pelvis CT report for description o f the subdiaphragmatic findings. CONCLUSION: 1. Trace bilateral pleural effusions with atelectasis in the lower lobes. There is wedge-shaped conso lidation in the right upper lobe versus fluid in the superior aspect of the major fissure. 2. Coronary artery calcification. Gerardo Valiente MD on September 21, 2016 at 3:22 Board Certified Radiologist. This report was verified electronically.
--- NOTE | 2016-09-21 03:41 | RADRPT ---
EXAM DATE/TIME: 09/21/2016 03:01 [facility] COMPARISON: CT ABDOMEN & PELVIS W/O CONTRAST, October 31, 2011, 5:45. CT ABDOMEN & PELVIS W/O CONTRAST, September, 17:57. INDICATIONS : Diffuse abdominal pain. IV CONTRAST: 46 cc Visipaque (iodixanol) IV ; Cumulative dose for multiple exams. ORAL CONTRAST: No oral contrast ingested. RADIATION DOSE: 16.87 CTDIvol (mGy) ; Combined studies - Thorax/Abdomen/Pelvis MEDICAL HISTORY : Cardiovascular disease. Hypertension. Gastroesophageal reflux disease.Tongue cancer. Umbilical hernia . SURGICAL HISTORY : section. Hysterectomy.Cholecystectomy.Colostomy reversal. ENCOUNTER: Subsequent ACUITY: 1 day PAIN SCALE: 1/10 LOCATION: Bilateral abdomen TECHNIQUE: Volumetric scanning of the abdomen and pelvis was performed. Using automated exposure control and ad justment of the mA and/or kV according to patient size, radiation dose was kept as low as reasonably achievable to obtain optimal diagnostic quality images. FINDINGS: LOWER LUNGS: Please refer to chest CT report for description of the supradiaphragmatic findings. LIVER: There is a low-density lesion in the left lobe measuring 2.1 cm with density measurements consistent with a cyst. Patient is post cholecystectomy with clips in the gallbladder fossa. There is no signif icant dilation of the biliary tree. SPLEEN: There is a perisplenic hematoma that has likely increased in size to some degree. There is abnormal l ow density in the inferior aspect of the spleen. Given history of recent fall this likely represents a splenic laceration/contusion. PANCREAS: Within normal limits. KIDNEYS: Normal in size and shape. There is no mass, stone or hydronephrosis. ADRENAL GLANDS: Within normal limits. VASCULAR: There is no aortic aneurysm. There is mild atherosclerotic disease. BOWEL/MESENTERY: The stomach, small bowel, and colon demonstrate no acute abnormality. There is no free intraperitone al air. There is mildly dense perihepatic free fluid similar to the prior examination. There are stab le postsurgical changes related to the distal colon. ABDOMINAL WALL: There is mesh along the anterior abdominal wall. RETROPERITONEUM: There is no lymphadenopathy. There is a small amount of blood products/hemorrhage in the left retrope ritoneum related to the splenic hematoma. BLADDER: No wall thickening or mass. REPRODUCTIVE: The uterus is absent. INGUINAL: There is no lymphadenopathy or hernia. MUSCULOSKELETAL: There are degenerative changes of the lumbar spine. No rib fractures visualized. CONCLUSION: 1. Inferior splenic laceration/contusion with moderate perisplenic hematoma and a small amount of blo od products in the left retroperitoneum. It is difficult to determine if the perisplenic hematoma has changed in size. It is either stable to slightly increased in size compared to the prior study from 2 days ago. 2. Stable small amount of mildly dense right perihepatic free fluid. Given the density it is possible that this fluid is complicated by blood products. Gerardo Valiente MD on September 21, 2016 at 3:28 Board Certified Radiologist. This report was verified electronically.
[2016-09-21] MEDS: CHLORHEXIDINE GLUCONATE 2 % 1 PACK (2 CLOTHS) TOP SCH (04:00)
[2016-09-21] MEDS: SODIUM CHLOR 0.9% 1000 ML INJ 1,000 ML IV SCH ×2 (05:09→08:54)
[2016-09-21 05:59] LABS: HEMATOCRIT 25.5 % (35.0-46.0); REVIEW FLAG FINAL
[2016-09-21 06:25] LABS: BICARBONATE 27.9 MEQ/L (21.0-32.0); POTASSIUM 3.6 MEQ/L (3.5-5.1)
[2016-09-21] MEDS: DOCUSATE SODIUM 100 MG CAP PO SCH ×2 (08:53→19:58)
[2016-09-21] MEDS: LISINOPRIL 20 MG TAB PO SCH ×2 (08:54→08:56)
[2016-09-21] MEDS: PANTOPRAZOLE SOD 40 MG DELAYED RELEASE TAB PO SCH (08:54)
[2016-09-21] MEDS: METOPROLOL SUCCINATE 50 MG EXTENDED RELEASE TAB PO SCH ×2 (08:54→08:58)
[2016-09-21] MEDS: DULoxetine HCl DR 60 MG CAP PO SCH ×2 (08:54→09:00)
[2016-09-21] MEDS: MULTIVITAMIN TAB PO SCH (08:54)
[2016-09-21] MEDS: COLCHICINE 0.6 MG TAB PO SCH ×2 (08:55→08:56)
[2016-09-21] MEDS: HYDROCHLOROTHIAZIDE 25 MG TAB PO SCH (08:55)
[2016-09-21] MEDS: BACITRACIN TOP OINT 15 GM TUBE TOP SCH ×2 (12:24→19:59)
--- NOTE | 2016-09-21 13:59 | HHI.PR ---
Subjective Subjective Notes PTD: 2 Patient sitting up in bed, in no distress. Patient states "the pain is coming back again." Objective Vitals/I&O Vital Signs Date Time Temp Pulse Resp B/P Pulse Ox O2 Delivery O2 Flow Rate FiO2 09/21/16 12:00 98.9 86 16 128/64 97 09/21/16 00:12 Nasal Cannula 2.00 Labs Laboratory Tests Test 09/20/16 09/21/16 09/21/16 16:15 00:23 05:38 Hemoglobin 9.6 8.8 8.6 Hematocrit 28.5 26.5 25.5 Sodium Level 142 Potassium Level 3.6 Chloride Level 107 Carbon Dioxide Level 27.9 Anion Gap 7 Blood Urea Nitrogen 26 Creatinine 1.18 Estimat Glomerular Filtration 45 Rate Random Glucose 122 Calcium Level 7.9 Radiology Last Impressions Head CT 09/19/16 1402 Signed Impressions: Service Date/Time: Monday, September 19, 2016 17:52 - CONCLUSION: Slight scalp swelling without any significant hemorrhage or mass effect. Jason Roach MD Chest X-Ray 09/19/16 1402 Signed Impressions: Service Date/Time: Monday, September 19, 2016 14:38 - CONCLUSION: No acute disease. Beltran Deleon MD FACR Cervical Spine CT 09/19/16 1402 Signed Impressions: Service Date/Time: Monday, September 19, 2016 17:57 - CONCLUSION: Neural foramina compromise at C3-4 without any significant thecal sac stenosis. Jason Roach MD Shoulder X-Ray 09/19/16 0000 Signed Impressions: Service Date/Time: Monday, September 19, 2016 14:40 - CONCLUSION: Normal examination for a patient of this age. Beltran Deleon MD FACR Chest CT 09/19/16 0000 Signed Impressions: Service Date/Time: Monday, September 19, 2016 17:57 - CONCLUSION: Tiny pericardial effusion and slight bibasilar atelectasis. Jason Roach MD Abdomen/Pelvis CT 09/19/16 0000 Signed Impressions: Service Date/Time: Monday, September 19, 2016 17:57 - CONCLUSION: 1. Enlarged spleen without definite evidence for laceration, however intrasplenic hematoma and/or parenchymal swelling is suspected. 2. Slight fluid in the perihepatic space. Jason Roach MD Narrative Exam GENERAL: This is a 76-year-old female sitting up in bed and in no distress.. SKIN: Warm and dry. HEAD: Atraumatic. Normocephalic. EYES: PERRLA ENT: No nasal bleeding or discharge. Mucous membranes pink and moist. NECK: Trachea midline. No JVD. CARDIOVASCULAR: Regular rate and rhythm. RESPIRATORY: No accessory muscle use. Lungs are clear to auscultation. Breath sounds equal bilaterally. No distress or dyspnea. GASTROINTESTINAL: BS + x 4 quads. Abdomen soft, non-tender, nondistended. Patient describes abdominal pain, however there is no complaints of pain on palpation of all 4 quadrants. MUSCULOSKELETAL: Extremities without cyanosis, or edema. + peripheral pulses x 4 extremities. Warm with good capillary refill and sensation. MAEW. NEUROLOGICAL: Awake and alert. Normal speech and pattern. A/P Problem List: (1) Spleen hematoma (2) Shoulder pain, right (3) Fall Assessment and Plan [place]: This is a 76-year-old female who was found face down by her . (She has fallen at least 7 times in the past week.) Brief LOC. Patient is experiencing a significant decline in function at home. INJURIES: LEFT eyebrow (4 sutures) C3-C4 neural foramina compromise Slight pericardial effusion ?Enlarged spleen? - hematoma vs swelling Diet: Regular diet. Tolerating po diet. Encourage good po intake with each meal. Pulmonary: Encourage good pulmonary toileting. IS at bedside and pt encouraged to use. Rationale for use explained to patient, and verbalized understanding. Sweta. PAIN Management: Tylenol po. IV morphine changed to morphine IR po. (Xanax) Following H&H: . Hemoglobin decreased slightly to 8.8 and 8.6 overnight. She was sent for a CT of her chest, and a CT of her abdomen and pelvis. CT chest shows pleural effusions and right upper lobe consolidation. CT abdomen shows inferior splenic laceration/contusion with blood in the retroperitoneum. Follow up a.m. labs. Activity: BR. PT ordered. GI prophylaxis: Protonix po Bowel regimen: Colace. MOM hs. DVT prophylaxis: Mechanical VTE with SCDs. Chemical management contraindicated at this time. DC Planning: Case management consulted for assistance with final discharge disposition. She may need full-time placement in a SNF. Emotional support provided to patient at bedside and plan of care discussed. Discussed with RN at bedside Patient is hemodynamically stable and being managed on the med/surg floor. Problem Qualifiers (1) Spleen hematoma: Qualified Code: S36.029A - Spleen hematoma, initial encounter (2) Shoulder pain, right: Qualified Code: M25.511 - Acute pain of right shoulder (3) Fall: Qualified Code: W19.XXXA - Fall, initial encounter Bere Piña Sep 21, 2016 13:59
--- NOTE | 2016-09-21 16:00 | PD.CONS ---
HPI Chief Complaint severe urgency and nocturia currently treated with Mrybetriq. Serina is a 76 yo mwf P2 s/p distant hysterectomy and multiple GI procedures. She is also my neighbor and friend. She has been suffering from dizziness and frequent falls for several months. She has intermittent acute gout and back pain but does very poorly with any opioids (extreme confusion) She has also been worked up for a severe, chronic cough. The cough and nocturia increase her risk for falling and she has fallen several times at night trying to get to the bathroom. Her , who is a physician desires strongly to support and help her but has at times overstated and overmedicated her for her pain. She desire to resume her tesselon pearls and myrbetriq. I will bring the latter thursday as it is not on hospital formulary and antimuscarinics can exacerbate confusion. She is lucid, appropriate and very bruised. It appears she will be managed conservatively for her splenic hematoma and is not NPO at this time. I will visit her daily. Date Seen: Sep 21, 2016 Time Seen: 16:00 Travel History International Travel<30 Days: No Contact w/Intl Traveler<30Days: No Known Affected Area: No Allergies-Medications (Allergen,Severity, Reaction): Coded Allergies: Cephalosporins (Verified Allergy, Severe, 03/22/14) ANAPHYLACTIC REACTION Codeine (Verified Allergy, Severe, Rash, 03/22/14) Dilaudid (Unverified Allergy, Severe, 03/22/14) Hydrocodone (Verified Allergy, Severe, 03/22/14) ANAPHYLACTIC REACTION Meperidine (Verified Allergy, Severe, HALLUCINATION, 03/22/14) Penicillin (Verified Allergy, Severe, 03/22/14) HIVES Percocet (Verified Allergy, Severe, 03/22/14) PATIENT STATED COULD NOT TAKE IN PACU 12/03/11 Sulfa (Verified Allergy, Severe, 03/22/14) NAUSEA Home Meds Active Scripts Hydrodiuril 25 Mg Tab25 Mg PO DAILY #30 TAB Ref 1 Prov:Fred Lennon MD 02/06/14 Lisinopril 40 mg (Prinivil 40 mg)40 Mg Tab40 Mg PO DAILY #30 TAB Ref 1 Prov:Fred Lennon MD 6/23/14 Artificial Tears 15 Ml Soln1 Drop RIGHT EYE DIRECTED 30 Days Ref 3 Prov:Fred Lennon MD 02/06/14 DULOXETINE HCl (Cymbalta)60 Mg Cap60 Mg PO DAILY #30 CAP Ref 1 Prov:Fred Lennon MD 02/06/14 Zolpidem Tartrate (Ambien 10 Mg Tab)10 Mg Tab10 Mg PO HS PRN (INSOMNIA) #30 Ref 0 Prov:Fred Lennon MD 02/06/14 Alprazolam (Xanax 1 mg)1 Mg Tab1 Mg PO TID PRN (ANXIETY) #90 Ref 0 Prov:Fred Lennon MD 02/06/14 Pantoprazole Sod (Protonix)40 Mg Tabdr40 Mg PO DAILY #30 TAB Ref 1 Prov:Fred Lennon MD 02/06/14 Metoprolol Succinate (Toprol Xl)50 Mg Tabcr50 Mg PO BID #60 TAB Ref 1 Prov:Fred Lennon MD 02/06/14 Multiple Vitamin (Multivitamin)1 Tab Tab1 Tab PO DAILY #30 TAB Ref 1 Prov:Fred Lennon MD 02/06/14 Commode 3:1 #1 Ea Prov:Joanne Gaston [facility] 02/02/14 Wheelchair Rental Ra #1 Ea Prov:Joanne Gaston [facility] 02/02/14 Walker Rolling #1 Ea Prov:Joanne Gaston [facility] 02/02/14 Reported Medications Simvastatin 40 Mg Tab1 Tab PO HS 03/22/14 Physical Exam Narrative GENERAL: Well-nourished, well-developed patient. SKIN: Warm and dry. HEAD: Normocephalic and atraumatic. EYES: No scleral icterus. No injection or drainage. ENT: No nasal drainage noted. Mucous membranes pink. Airway patent. NECK: Supple, trachea midline. No JVD. CARDIOVASCULAR: Regular rate and rhythm without murmurs, gallops, or rubs. RESPIRATORY: Breath sounds equal bilaterally. No accessory muscle use. BREASTS: Bilateral exam showed no masses , no retractions, no nipple discharge. ABDOMEN/GI: Abdomen soft, non-tender, bowel sounds present, no rebound, no guarding Gravid to [-] weeks size Fundal Height: [-] GENITOURINARY: External Genitalia: intact and normal in appearance BUS glands: [-] Cervix: [-] Dilatation: [-] Effacement: [-] Station: [-] Presentation: [-] Membranes: [intact or ruptured] Uterine Contractions: [-] FHT's: Category: [-] Baseline: [-] Reactive: [-] Variability: [-] Decels: [-] EXTREMITIES: No cyanosis or edema. BACK: Nontender without obvious deformity. No CVA tenderness. NEUROLOGICAL: Awake and alert. Motor and sensory grossly within normal limits. Five out of 5 muscle strength in all muscle groups. Normal speech. Data Data Orders Hgb & Hct (09/21/16 00:00) Hgb & Hct (09/21/16 06:00) ^ Other Nursing Orders (09/20/16 17:17) Case Management Consult (09/20/16 17:38) Basic Metabolic Panel (Bmp) (09/21/16 05:00) Consult Gastroenterology (09/20/16 ) Albuterol-Ipratropium Neb (Duoneb Neb) (09/20/16 23:15) (Hub Use Only)Inp Phy Cons/Ref (09/20/16 ) Ct Abd/Pel W Iv Contrast(Rout) (09/21/16 03:00) Ct Thorax/ Chest W Iv Contrast (09/21/16 ) Iodixanol 320 Inj (Visipaque 320 Inj) (09/21/16 03:05) Diet Regular Basic (09/21/16 Lunch) Cbc No Diff, Includes Plts (09/22/16 05:00) Basic Metabolic Panel (Bmp) (09/22/16 05:00) Magnesium (Mg) (09/22/16 05:00) Morphine Ir (Msir) (09/21/16 13:00) Benzonatate (Tessalon) (09/21/16 16:00) Consult Gynecology (09/21/16 ) Labs Laboratory Tests Test 09/20/16 09/21/16 09/21/16 16:15 00:23 05:38 Hemoglobin 9.6 8.8 8.6 Hematocrit 28.5 26.5 25.5 Sodium Level 142 Potassium Level 3.6 Chloride Level 107 Carbon Dioxide Level 27.9 Anion Gap 7 Blood Urea Nitrogen 26 Creatinine 1.18 Estimat Glomerular Filtration 45 Rate Random Glucose 122 Calcium Level 7.9 MDM Admitting diagnosis: splenic hematoma, fall, right shoulder pain Condition: Stable Jazmine Chacko MD Sep 21, 2016 16:00
[2016-09-21] MEDS: BENZONATATE 100 MG CAP PO PRN ×2 (16:16→21:00)
[2016-09-21] MEDS: MAGNESIUM HYDROXIDE SUSP 30 ML CUP PO SCH (19:58)
[2016-09-21] MEDS ORDERED: GABA300C5 PO (20:12)
[2016-09-21] MEDS ORDERED: GABA600T PO (20:12)
[2016-09-21] MEDS: GABAPENTIN 300 MG CAP PO SCH (20:45)
[2016-09-22] VITALS (16 sets, daily range): BP systolic 116–165; BP diastolic 56–86; PULSE 63–93; RESP 16–22; TEMP 96.1–99.1; O2SAT 92–98
[2016-09-22] MEDS: CHLORHEXIDINE GLUCONATE 2 % 1 PACK (2 CLOTHS) TOP SCH (04:00)
[2016-09-22 06:06] LABS: BICARBONATE 26.2 MEQ/L (21.0-32.0); MAGNESIUM 1.7 MG/DL (1.5-2.5); POTASSIUM 3.1 MEQ/L (3.5-5.1)
[2016-09-22 07:20] LABS: HEMATOCRIT 22.9 % (35.0-46.0); MEAN CELL VOLUME 98.6 FL (80.0-100.0); MEAN CORPUSCULAR HEMOGLOBIN 32.6 PG (27.0-34.0); MEAN CORPUSCULAR HGB CONC 33.1 % (32.0-36.0); PLATELET COUNT 180 TH/MM3 (150-450); RED BLOOD COUNT 2.32 MIL/MM3 (4.00-5.30); REVIEW FLAG FINAL; WHITE BLOOD COUNT 6.6 TH/MM3 (4.0-11.0)
[2016-09-22] MEDS ORDERED: POTASSIUM CHLORIDE 20 MEQ CONTROLLED RELEASE TAB PO ONE (07:45)
[2016-09-22] MEDS ORDERED: SODIUM CHLOR 0.9% 250 ML INJ 250 ML IV ONE (08:30)
[2016-09-22] MEDS: LISINOPRIL 20 MG TAB PO SCH (08:33)
[2016-09-22] MEDS: DOCUSATE SODIUM 100 MG CAP PO SCH ×2 (08:33→21:00)
[2016-09-22] MEDS: MULTIVITAMIN TAB PO SCH (08:33)
[2016-09-22] MEDS: METOPROLOL SUCCINATE 50 MG EXTENDED RELEASE TAB PO SCH (08:34)
[2016-09-22] MEDS: DULoxetine HCl DR 60 MG CAP PO SCH (08:34)
[2016-09-22] MEDS: HYDROCHLOROTHIAZIDE 25 MG TAB PO SCH (08:34)
[2016-09-22] MEDS: GABAPENTIN 300 MG CAP PO SCH ×2 (08:35→21:00)
[2016-09-22] MEDS: COLCHICINE 0.6 MG TAB PO SCH (08:35)
[2016-09-22] MEDS: PANTOPRAZOLE SOD 40 MG DELAYED RELEASE TAB PO SCH (08:35)
[2016-09-22] MEDS: POTASSIUM CHLOR 20 MEQ PREMIX 100 ML IV SCH ×2 (08:36→10:00)
[2016-09-22] MEDS: BENZONATATE 100 MG CAP PO PRN (08:36)
[2016-09-22] MEDS: BACITRACIN TOP OINT 15 GM TUBE TOP SCH ×2 (08:36→21:00)
--- NOTE | 2016-09-22 09:19 | PD.CONS ---
HPI Chief Complaint Quiet night alert and comfortable this am pain is less although she has moved very minimal Date Seen: Sep 22, 2016 Time Seen: 09:14 Travel History International Travel<30 Days: No Contact w/Intl Traveler<30Days: No Known Affected Area: No History of Present Illness HPI Hgb has dropped further. Creatitnine now normal brusies and torn skin healing still very sore around arms palpable spleen Allergies-Medications (Allergen,Severity, Reaction): Coded Allergies: Cephalosporins (Verified Allergy, Severe, 03/22/14) ANAPHYLACTIC REACTION Codeine (Verified Allergy, Severe, Rash, 03/22/14) Dilaudid (Unverified Allergy, Severe, 03/22/14) Hydrocodone (Verified Allergy, Severe, 03/22/14) ANAPHYLACTIC REACTION Meperidine (Verified Allergy, Severe, HALLUCINATION, 03/22/14) Penicillin (Verified Allergy, Severe, 03/22/14) HIVES Percocet (Verified Allergy, Severe, 03/22/14) PATIENT STATED COULD NOT TAKE IN PACU 12/03/11 Sulfa (Verified Allergy, Severe, 03/22/14) NAUSEA Home Meds Active Scripts Hydrodiuril 25 Mg Tab25 Mg PO DAILY #30 TAB Ref 1 Prov:Fred Lennon MD 02/06/14 Lisinopril 40 mg (Prinivil 40 mg)40 Mg Tab40 Mg PO DAILY #30 TAB Ref 1 Prov:Fred Lennon MD 02/06/14 Artificial Tears 15 Ml Soln1 Drop RIGHT EYE DIRECTED 30 Days Ref 3 Prov:Fred Lennon MD 02/06/14 DULOXETINE HCl (Cymbalta)60 Mg Cap60 Mg PO DAILY #30 CAP Ref 1 Prov:Fred Lennon MD 02/06/14 Zolpidem Tartrate (Ambien 10 Mg Tab)10 Mg Tab10 Mg PO HS PRN (INSOMNIA) #30 Ref 0 Prov:Fred Lennon MD 02/06/14 Alprazolam (Xanax 1 mg)1 Mg Tab1 Mg PO TID PRN (ANXIETY) #90 Ref 0 Prov:Fred Lennon MD 02/06/14 Pantoprazole Sod (Protonix)40 Mg Tabdr40 Mg PO DAILY #30 TAB Ref 1 Prov:Fred Lennon MD 02/06/14 Metoprolol Succinate (Toprol Xl)50 Mg Tabcr50 Mg PO BID #60 TAB Ref 1 Prov:Fred Lennon MD 02/06/14 Multiple Vitamin (Multivitamin)1 Tab Tab1 Tab PO DAILY #30 TAB Ref 1 Prov:Fred Lennon MD 02/06/14 Commode 3:1 #1 Ea Prov:Joanne Gsaton [facility] 02/02/14 Wheelchair Rental Ra #1 Ea Prov:Joanne GastonP 02/02/14 Walker Rolling #1 Ea Prov:Joanne Gaston [facility] 02/02/14 Reported Medications Gabapentin 600 Mg [id number] Mg PO HS Ref 0 09/21/16 Gabapentin 300 Mg [id number] Mg PO DAILY Ref 0 09/21/16 Simvastatin 40 Mg Tab1 Tab PO HS 03/22/14 Physical Exam Narrative GENERAL: Well-nourished, well-developed patient. SKIN: Warm and dry. HEAD: Normocephalic Significant bruising on left side post laceration repair EXTREMITIES: No cyanosis or edema. Many bruises, and torn skin BACK: Nontender without obvious deformity. No CVA tenderness. NEUROLOGICAL: Awake and alert. Motor and sensory grossly within normal limits. . Normal speech. Data Data Orders Diet Regular Basic (09/21/16 Lunch) Cbc No Diff, Includes Plts (09/22/16 05:00) Basic Metabolic Panel (Bmp) (09/22/16 05:00) Magnesium (Mg) (09/22/16 05:00) Morphine Ir (Msir) (09/21/16 13:00) Benzonatate (Tessalon) (09/21/16 16:00) Consult Gynecology (09/21/16 ) (Hub Use Only)Inp Phy Cons/Ref (09/21/16 ) Magnesium Hydroxide Liq (Milk Of Magnesi (09/21/16 21:00) Gabapentin (Neurontin) (09/22/16 09:00) Gabapentin (Neurontin) (09/21/16 21:00) Potassium Chlor 20 Meq Premix (Kcl 20 Me (09/22/16 08:00) ^ Other Nursing Orders (09/22/16 07:35) Potassium Chloride (Kcl) (09/22/16 07:45) Red Blood Cells (Rbc) (09/22/16 08:23) Blood Product Administration .UPON TRANSFUSION (09/22/16 08:23) ^ Instruction (09/22/16 08:23) Sodium Chlor 0.9% 250 Ml Inj (Ns 250 Ml (09/22/16 08:30) Type And Screen (09/22/16 08:23) Equip, Iv Pump Use Of (09/22/16 08:39) Labs Laboratory Tests Test 09/22/16 04:46 White Blood Count 6.6 Red Blood Count 2.32 Hemoglobin 7.6 Hematocrit 22.9 Mean Corpuscular Volume 98.6 Mean Corpuscular Hemoglobin 32.6 Mean Corpuscular Hemoglobin 33.1 Concent Red Cell Distribution Width 14.0 Platelet Count 180 Mean Platelet Volume 8.7 Sodium Level 140 Potassium Level 3.1 Chloride Level 106 Carbon Dioxide Level 26.2 Anion Gap 8 Blood Urea Nitrogen 16 Creatinine 0.87 Estimat Glomerular Filtration 64 Rate Random Glucose 88 Calcium Level 7.8 Magnesium Level 1.7 MDM Medical Record Reviewed: Yes Interpretation(s) I believe her creatinine was up because she was intentionally restricting fluids to decrease urgency and nocturia. Her dehydration may have in part caused her fall although there are other factors not understood. Will get her myrbegtriq to her today. Await surgery's decision but likely will need transfusion--does not need to be orthostatic with her balance issues. Admitting diagnosis: splenic hematoma, fall, right shoulder pain Condition: Stable Jazmine Chacko MD Sep 22, 2016 09:19
--- NOTE | 2016-09-22 11:23 | HHI.PR ---
Subjective Subjective Notes PTD: 3 Patient sitting up in bed. She is in no distress, but complains of some slight abdominal pain. Objective Vitals/I&O Vital Signs Date Time Temp Pulse Resp B/P Pulse Ox O2 Delivery O2 Flow Rate FiO2 09/22/16 08:00 97.6 77 17 124/59 96 09/21/16 22:21 Nasal Cannula 2.00 Labs Laboratory Tests Test 09/22/16 09/22/16 04:46 09:56 White Blood Count 6.6 Red Blood Count 2.32 Hemoglobin 7.6 Hematocrit 22.9 Mean Corpuscular Volume 98.6 Mean Corpuscular Hemoglobin 32.6 Mean Corpuscular Hemoglobin 33.1 Concent Red Cell Distribution Width 14.0 Platelet Count 180 Mean Platelet Volume 8.7 Sodium Level 140 Potassium Level 3.1 Chloride Level 106 Carbon Dioxide Level 26.2 Anion Gap 8 Blood Urea Nitrogen 16 Creatinine 0.87 Estimat Glomerular Filtration 64 Rate Random Glucose 88 Calcium Level 7.8 Magnesium Level 1.7 Blood Type O POSITIVE Antibody Screen NEGATIVE Crossmatch Leukocyte-Reduced Red Blood Cells Blood Bank Comment Radiology Last Impressions Head CT 09/19/16 1402 Signed Impressions: Service Date/Time: Monday, September 19, 2016 17:52 - CONCLUSION: Slight scalp swelling without any significant hemorrhage or mass effect. Jason Roach MD Chest X-Ray 09/19/16 1402 Signed Impressions: Service Date/Time: Monday, September 19, 2016 14:38 - CONCLUSION: No acute disease. Beltran Deleon MD FACR Cervical Spine CT 09/19/16 1402 Signed Impressions: Service Date/Time: Monday, September 19, 2016 17:57 - CONCLUSION: Neural foramina compromise at C3-4 without any significant thecal sac stenosis. Jason Roach MD Shoulder X-Ray 09/19/16 0000 Signed Impressions: Service Date/Time: Monday, September 19, 2016 14:40 - CONCLUSION: Normal examination for a patient of this age. Beltran Deleon MD FACR Chest CT 09/19/16 0000 Signed Impressions: Service Date/Time: Monday, September 19, 2016 17:57 - CONCLUSION: Tiny pericardial effusion and slight bibasilar atelectasis. Jason Roach MD Abdomen/Pelvis CT 09/19/16 0000 Signed Impressions: Service Date/Time: Monday, September 19, 2016 17:57 - CONCLUSION: 1. Enlarged spleen without definite evidence for laceration, however intrasplenic hematoma and/or parenchymal swelling is suspected. 2. Slight fluid in the perihepatic space. Jason Roach MD Narrative Exam GENERAL: This is a 76-year-old female sitting up in bed and in no distress.. SKIN: Warm and dry. HEAD: Atraumatic. Normocephalic. Left forehead ecchymosis. Sutures noted to left eyebrow. EYES: PERRLA ENT: No nasal bleeding or discharge. Mucous membranes pink and moist. NECK: Trachea midline. No JVD. CARDIOVASCULAR: Regular rate and rhythm. RESPIRATORY: No accessory muscle use. Lungs are clear to auscultation. Breath sounds equal bilaterally. No distress or dyspnea. GASTROINTESTINAL: BS + x 4 quads. Abdomen soft, non-tender, nondistended. Patient describes abdominal pain, however there is not complaints of pain on palpation of all 4 quadrants. MUSCULOSKELETAL: Extremities without cyanosis, or edema. + peripheral pulses x 4 extremities. Warm with good capillary refill and sensation. MAEW. NEUROLOGICAL: Awake and alert. Normal speech and pattern. A/P Problem List: (1) Spleen hematoma (2) Shoulder pain, right (3) Fall Assessment and Plan [place]: This is a 76-year-old female who was found face down by her . (She has fallen at least 7 times in the past week.) Brief LOC. Patient is experiencing a significant decline in function at home. INJURIES: LEFT eyebrow (4 sutures) C3-C4 neural foramina compromise Slight pericardial effusion ?Enlarged spleen? - hematoma vs swelling Procedures: 09/22: IR for splenic embolization Consults: PCP, pulmonology, gynecology, IR. Diet: Regular diet. Tolerating po diet. Encourage good po intake with each meal. Pulmonary: Encourage good pulmonary toileting. IS at bedside and pt encouraged to use. Rationale for use explained to patient, and verbalized understanding. Sweta. PAIN Management: Tylenol po. IV morphine changed to morphine IR po. (Xanax) CT chest shows pleural effusions and right upper lobe consolidation. CT abdomen shows inferior splenic laceration/contusion with blood in the retroperitoneum. Due to hemoglobin decrease to 7.6 this a.m., IR consulted for splenic angiogram/ embolization. (Dr. Castañeda spoke personally to the radiologist to formulate a plan) H&H - 7.6 / 22.9 - Transfuse 2 units packed red blood cells now. Obtain STAT coags, 2 units FFP on hold. Follow up a.m. labs. Activity: BR. PT ordered. GI prophylaxis: Protonix po Bowel regimen: Colace. MOM hs. DVT prophylaxis: Mechanical VTE with SCDs. Chemical management contraindicated at this time. DC Planning: Case management consulted for assistance with final discharge disposition. A referral has been [facility] to [facility] for admission. She may need full-time placement in a SNF. Patient will need vaccines prior to discharge. Emotional support provided to patient at bedside and plan of care discussed. Dr. Castañeda spoke with patient's via telephone. Discussed with RN at bedside Patient is hemodynamically stable and being managed on the med/surg floor. Problem Qualifiers (1) Spleen hematoma: Qualified Code: S36.029A - Spleen hematoma, initial encounter (2) Shoulder pain, right: Qualified Code: M25.511 - Acute pain of right shoulder (3) Fall: Qualified Code: W19.XXXA - Fall, initial encounter Bere Piña Sep 22, 2016 11:22
[2016-09-22] MEDS ORDERED: POTASSIUM CL 40 MEQ/30 ML LIQ UDC PO ONE (11:45)
[2016-09-22] MEDS: RESP: ALBUTEROL 2.5 MG/IPRATROPIUM 0.5 MG NEB (SCH) NEB ×3 (12:00→20:53)
[2016-09-22 12:10] LABS: BICARBONATE 31.4 MEQ/L (21.0-32.0)
[2016-09-22 12:11] LABS: PROTHROMBIN TIME - PATIENT 10.7 SEC (9.8-11.6)
[2016-09-22] MEDS ORDERED: MIDAZOLAM HCL 5 MG/5 ML VIAL ONE (13:13)
[2016-09-22] MEDS ORDERED: fentaNYL CITRATE 250 MCG/5 ML AMP ONE (13:14)
[2016-09-22] MEDS ORDERED: IODIXANOL 320 MG/ML 50 ML VIAL (for RAD SPEC) I-ARTERIAL ONE (16:54)
[2016-09-22] MEDS ORDERED: GELATIN 12 MM/7 MM FOAM I-ARTERIAL ONE (17:13)
[2016-09-22] MEDS ORDERED: MIRA50TA PO (17:45)
[2016-09-22] MEDS: MORPHINE SULFATE 15 MG TAB PO PRN (18:18)
[2016-09-22] MEDS: MAGNESIUM HYDROXIDE SUSP 30 ML CUP PO SCH (21:00)
--- NOTE | 2016-09-22 21:06 | PD.CONS ---
HPI Travel History International Travel<30 Days: No Contact w/Intl Traveler<30Days: No Known Affected Area: No History of Present Illness HPI s/p IR today embolization pain 01/24 cough still problematic Allergies-Medications (Allergen,Severity, Reaction): Coded Allergies: Cephalosporins (Verified Allergy, Severe, 03/22/14) ANAPHYLACTIC REACTION Codeine (Verified Allergy, Severe, Rash, 03/22/14) Dilaudid (Unverified Allergy, Severe, 03/22/14) Hydrocodone (Verified Allergy, Severe, 03/22/14) ANAPHYLACTIC REACTION Meperidine (Verified Allergy, Severe, HALLUCINATION, 03/22/14) Penicillin (Verified Allergy, Severe, 03/22/14) HIVES Percocet (Verified Allergy, Severe, 03/22/14) PATIENT STATED COULD NOT TAKE IN PACU 12/03/11 Sulfa (Verified Allergy, Severe, 03/22/14) NAUSEA Home Meds Active Scripts Hydrodiuril 25 Mg Tab25 Mg PO DAILY #30 TAB Ref 1 Prov:Fred Lennon MD 02/06/14 Lisinopril 40 mg (Prinivil 40 mg)40 Mg Tab40 Mg PO DAILY #30 TAB Ref 1 Prov:Fred Lennon MD 02/06/14 Artificial Tears 15 Ml Soln1 Drop RIGHT EYE DIRECTED 30 Days Ref 3 Prov:Fred Lennon MD 02/06/14 DULOXETINE HCl (Cymbalta)60 Mg Cap60 Mg PO DAILY #30 CAP Ref 1 Prov:Fred Lennon MD 02/06/14 Zolpidem Tartrate (Ambien 10 Mg Tab)10 Mg Tab10 Mg PO HS PRN (INSOMNIA) #30 Ref 0 Prov:Fred Lennon MD 02/06/14 Alprazolam (Xanax 1 mg)1 Mg Tab1 Mg PO TID PRN (ANXIETY) #90 Ref 0 Prov:Fred Lennon MD 02/06/14 Pantoprazole Sod (Protonix)40 Mg Tabdr40 Mg PO DAILY #30 TAB Ref 1 Prov:Fred Lennon MD 02/06/14 Metoprolol Succinate (Toprol Xl)50 Mg Tabcr50 Mg PO BID #60 TAB Ref 1 Prov:Fred Lennon MD 02/06/14 Multiple Vitamin (Multivitamin)1 Tab Tab1 Tab PO DAILY #30 TAB Ref 1 Prov:Fred Lennon MD 02/06/14 Commode 3:1 #1 Ea Prov:Joanne GastonAnabel [facility] 02/02/14 Wheelchair Rental Ra #1 Ea Prov:Joanne Gaston [facility] 02/02/14 Walker Rolling #1 Ea Prov:Joanne GastonAnabel [facility] 02/02/14 Reported Medications Mirabegron (Myrbetriq)50 Mg Tab50 Mg PO DAILY #30 TAB Ref 0 09/22/16 Gabapentin 600 Mg [id number] Mg PO HS Ref 0 09/21/16 Gabapentin 300 Mg Yam812 Mg PO DAILY Ref 0 09/21/16 Simvastatin 40 Mg Tab1 Tab PO HS 03/22/14 Physical Exam Narrative GENERAL: Well-nourished, well-developed patient. SKIN: Warm and dry. HEAD: Normocephalic laceration healing LUQT and splenomegaly stable EXTREMITIES: No cyanosis or edema. bruises healing BACK: Nontender without obvious deformity. No CVA tenderness. NEUROLOGICAL: Awake and alert. Motor and sensory grossly within normal limits. . Normal speech. Lucid and no sundowning at this time Data Data Orders Potassium Chlor 20 Meq Premix (Kcl 20 Me (09/22/16 08:00) ^ Other Nursing Orders (09/22/16 07:35) Potassium Chloride (Kcl) (09/22/16 07:45) Red Blood Cells (Rbc) (09/22/16 08:23) Blood Product Administration .UPON TRANSFUSION (09/22/16 08:23) ^ Instruction (09/22/16 08:23) Sodium Chlor 0.9% 250 Ml Inj (Ns 250 Ml (09/22/16 08:30) Type And Screen (09/22/16 08:23) Equip, Iv Pump Use Of (09/22/16 08:39) Trauma Office Use Only (09/19/16 09:21) Consult Vascular Access Team (09/22/16 ) Vascular Poc Ultrasound (09/22/16 ) Angiogram, Splenic Artery (09/22/16 ) Basic Metabolic Panel (Bmp) (09/22/16 10:56) Albuterol-Ipratropium Neb (Duoneb Neb) (09/22/16 12:00) Consult Pulmonology (09/22/16 ) Prothrombin Time / Inr (Pt) (09/22/16 11:32) Fresh Frozen Plasma (Ffp) (09/22/16 11:32) Potassium Cl 40 Meq/30 Ml Liq (Kcl 40 Me (09/22/16 11:45) (Hub Use Only)Inp Phy Cons/Ref (09/22/16 ) Midazolam Inj (Versed Inj) (09/22/16 13:13) Fentanyl Inj (Fentanyl Inj) (09/22/16 13:14) Angiogram, Celiac Artery (09/22/16 ) Us Guided Vascular Access (09/22/16 ) Transcath Iv Occlusion (09/22/16 ) F/U Thru Existing Cath (09/22/16 ) Angiogram, Select + Vessel (09/22/16 ) Vital Signs (Adult) Q15MX4,Q30MX4,Q1HX4 (09/22/16 16:40) ^ Notify Dr. Parameters (09/22/16 16:40) ^ Apply Pressure (09/22/16 16:40) ^ Dressings (09/22/16 16:40) Activity Bed Rest (09/22/16 16:40) Remove Urinary Catheter .ONCE (09/22/16 16:40) Iodixanol 320 Inj (Visipaque 320 Inj) (09/22/16 16:54) Gelatin 12 Mm/7 Mm Top (Gelfoam 12 Mm/7 (09/22/16 17:13) Consult Hospitalist (09/22/16 ) Hemoglobin (Hgb) (09/22/16 19:37) Hematocrit (Hct) (09/22/16 19:37) (Hub Use Only)Inp Phy Cons/Ref (09/22/16 19:49) Labs Laboratory Tests Test 09/22/16 09/22/16 09/22/16 04:46 09:56 11:40 White Blood Count 6.6 Red Blood Count 2.32 Hemoglobin 7.6 Hematocrit 22.9 Mean Corpuscular Volume 98.6 Mean Corpuscular Hemoglobin 32.6 Mean Corpuscular Hemoglobin 33.1 Concent Red Cell Distribution Width 14.0 Platelet Count 180 Mean Platelet Volume 8.7 Sodium Level 140 141 Potassium Level 3.1 3.0 Chloride Level 106 106 Carbon Dioxide Level 26.2 31.4 Anion Gap 8 4 Blood Urea Nitrogen 16 16 Creatinine 0.87 0.91 Estimat Glomerular Filtration 64 60 Rate Random Glucose 88 128 Calcium Level 7.8 8.0 Magnesium Level 1.7 Blood Type O POSITIVE Antibody Screen NEGATIVE Crossmatch Leukocyte-Reduced Red Blood Cells Blood Bank Comment Prothrombin Time 10.7 Prothromb Time International 1.0 Ratio MDM Interpretation(s) check labs in am (tonight's are pending) myrbetriq for urgency tesselon for cough gabapentin for chronic back pain check uric acid with her gout history long converation with spouse Dr Anthony (they are my next door neighbors) Admitting diagnosis: splenic hematoma, fall, right shoulder pain Condition: Stable Jazmine Chacko MD Sep 22, 2016 21:06
[2016-09-22] MEDS: ONDANSETRON HCL 4 MG/2 ML VIAL IV PRN (21:42)
[2016-09-22 22:37] LABS: HEMATOCRIT 33.5 % (35.0-46.0)
[2016-09-22] MEDS: ACETAMINOPHEN 1000 MG/100 ML VIAL IV PRN (23:00)
[2016-09-23] VITALS (9 sets, daily range): BP systolic 119–187; BP diastolic 56–82; PULSE 65–100; RESP 18–20; TEMP 97.7–99.9; O2SAT 90–97
[2016-09-23] MEDS: CHLORHEXIDINE GLUCONATE 2 % 1 PACK (2 CLOTHS) TOP SCH (04:00)
[2016-09-23] MEDS: RESP: ALBUTEROL 2.5 MG/IPRATROPIUM 0.5 MG NEB (SCH) NEB ×4 (04:21→21:01)
[2016-09-23 04:54] LABS: AUTOMATED NEUTROPHIL # 14.3 TH/MM3 (1.8-7.7); BASOPHIL % 0.2 % (0.0-2.0); EOSINOPHIL % 0.2 % (0.0-4.0); HEMATOCRIT 30.5 % (35.0-46.0); HEMO FLAGS DIFF FINAL; LYMPH % 10.8 % (9.0-44.0); LYMPHOCYTE # 1.9 TH/MM3 (1.0-4.8); MEAN CELL VOLUME 90.8 FL (80.0-100.0); MEAN CORPUSCULAR HEMOGLOBIN 30.5 PG (27.0-34.0); MEAN CORPUSCULAR HGB CONC 33.6 % (32.0-36.0); MONO % 9.7 % (0.0-8.0); NEUT % 79.1 % (16.0-70.0); PLATELET COUNT 201 TH/MM3 (150-450); RED BLOOD COUNT 3.36 MIL/MM3 (4.00-5.30); RED CELL DISTRIBUTION WIDTH 19.3 % (11.6-17.2); WHITE BLOOD COUNT 18.1 TH/MM3 (4.0-11.0)
[2016-09-23] MEDS: ACETAMINOPHEN 1000 MG/100 ML VIAL IV PRN (05:00)
[2016-09-23 05:03] LABS: BICARBONATE 29.1 MEQ/L (21.0-32.0); POTASSIUM 3.2 MEQ/L (3.5-5.1)
--- NOTE | 2016-09-23 08:23 | RADRPT ---
EXAM DATE/TIME: 09/22/2016 13:10 [place] COMPARISON: No previous studies available for comparison. INDICATIONS : Patient with recent fall with splenic hematoma in need of angiogram with possible intervention. MEDICAL HISTORY : 1.Anxiety 2.Asthma 3.Hypercholesterolemia 4.GOUT 5.Recent hearing loss 6. Tongue cancer SURGICAL HISTORY : 1.Hari's procedure with colostomy reversal 2. x 2 3.Hysterectomy ENCOUNTER: Initial ACUITY: 3 days PAIN SCORE: 10/10 Whole body. FLUORO TIME: 22.3 minutes ACCESS SITE: Right Femoral artery SEDATION TIME: 60 minutes CONTRAST: 1.) 40 cc Visipaque (iodixanol) MEDICATION(S): 1.) 2 mg midazolam (Versed) IV 2.) 175 mcg fentanyl (Sublimaze) IV DEVICE(S): 1.) Splenic artery Gelfoam PROCEDURE : 1. Ultrasound-guided puncture of the access site. 2. Conscious sedation with continuous EKG and Oximetry monitoring. 3. Angiography of the celiac axis 4. Angiography of the splenic artery 5. splenic artery embolization The risks, benefits and alternatives to the procedure were explained and verbal and written consent w as obtained. The site was prepped in sterile fashion. Full sterile technique was used, including ca p, mask, sterile gloves and gown and a large sterile sheet. Hand hygiene and 2% chlorhexidine and/or betadine/alcohol prep was utilized per protocol for cutaneous antisepsis. The skin and subcutaneous tissues were infiltrated with local anesthetic solution. With ultrasound and fluoroscopic guidance the selected artery was punctured and a vascular sheath was placed A Maldonado 2 catheter was used to gain access to the sac axis and angiography was performed demonstrat ing the course anatomy of the splenic artery. Splenic artery was selectively catheterized and followi ng this Gelfoam was placed until complete stasis. The patient tolerated procedure well and no complic ations. The puncture site was closed with manual pressure and hemostasis was obtained. The patient tolerated the procedure well and there were no complications. Conscious sedation was performed with the prescribed dosages and duration as above. EKG and oximetry remained stable throughout the procedure. CONCLUSION: 1. Uncomplicated Splenic artery embolization Chapincito Taylor MD on September 23, 2016 at 8:19 Board Certified Radiologist. This report was verified electronically.
[2016-09-23] MEDS: DULoxetine HCl DR 60 MG CAP PO SCH (08:55)
[2016-09-23] MEDS: COLCHICINE 0.6 MG TAB PO SCH (08:55)
[2016-09-23] MEDS: HYDROCHLOROTHIAZIDE 25 MG TAB PO SCH (08:56)
[2016-09-23] MEDS: GABAPENTIN 300 MG CAP PO SCH ×2 (08:56→22:16)
[2016-09-23] MEDS: PANTOPRAZOLE SOD 40 MG DELAYED RELEASE TAB PO SCH ×2 (08:56→22:16)
[2016-09-23] MEDS: DOCUSATE SODIUM 100 MG CAP PO SCH (08:56)
[2016-09-23] MEDS: MORPHINE SULFATE 15 MG TAB PO PRN (08:56)
[2016-09-23] MEDS: BACITRACIN TOP OINT 15 GM TUBE TOP SCH ×2 (08:57→22:21)
[2016-09-23] MEDS: METOPROLOL SUCCINATE 50 MG EXTENDED RELEASE TAB PO SCH (08:57)
[2016-09-23] MEDS: LISINOPRIL 20 MG TAB PO SCH (08:58)
[2016-09-23] MEDS: POTASSIUM CL 40 MEQ/30 ML LIQ UDC PO SCH ×2 (09:30→21:00)
[2016-09-23] MEDS: ONDANSETRON HCL 4 MG/2 ML VIAL IV PRN (09:30)
[2016-09-23] MEDS ORDERED: HYDR25TA5 PO (10:03)
[2016-09-23] MEDS ORDERED: PANT40TA3 PO (10:03)
[2016-09-23] MEDS ORDERED: SIMV40TA PO (10:03)
[2016-09-23] MEDS ORDERED: LACT1CAP2 (10:03)
[2016-09-23] MEDS ORDERED: ALLO300T2 PO (10:03)
[2016-09-23] MEDS ORDERED: SULF1TAB23 PO (10:03)
[2016-09-23] MEDS ORDERED: PARO20TA2 PO (10:03)
[2016-09-23] MEDS ORDERED: CARV3.12 PO (10:03)
[2016-09-23] MEDS ORDERED: BUPR300T PO (10:03)
--- NOTE | 2016-09-23 11:11 | HHI.PR ---
Subjective Subjective Notes PTD: 4 Patient states "I am not doing good." She states she is having really bad pain to her left side and left abdomen. Objective Vitals/I&O Vital Signs Date Time Temp Pulse Resp B/P Pulse Ox O2 Delivery O2 Flow Rate FiO2 09/23/16 09:39 94 Nasal Cannula 2.00 09/23/16 08:00 98.0 65 18 127/63 Labs Laboratory Tests Test 09/22/16 09/22/16 09/23/16 11:40 21:40 03:45 Prothrombin Time 10.7 Prothromb Time International 1.0 Ratio Sodium Level 141 140 Potassium Level 3.0 3.2 Chloride Level 106 103 Carbon Dioxide Level 31.4 29.1 Anion Gap 4 8 Blood Urea Nitrogen 16 13 Creatinine 0.91 0.84 Estimat Glomerular Filtration 60 66 Rate Random Glucose 128 129 Calcium Level 8.0 8.1 Hemoglobin 11.2 10.2 Hematocrit 33.5 30.5 White Blood Count 18.1 Red Blood Count 3.36 Mean Corpuscular Volume 90.8 Mean Corpuscular Hemoglobin 30.5 Mean Corpuscular Hemoglobin 33.6 Concent Red Cell Distribution Width 19.3 Platelet Count 201 Mean Platelet Volume 8.5 Neutrophils (%) (Auto) 79.1 Lymphocytes (%) (Auto) 10.8 Monocytes (%) (Auto) 9.7 Eosinophils (%) (Auto) 0.2 Basophils (%) (Auto) 0.2 Neutrophils # (Auto) 14.3 Lymphocytes # (Auto) 1.9 Monocytes # (Auto) 1.8 Eosinophils # (Auto) 0.0 Basophils # (Auto) 0.0 CBC Comment DIFF FINAL Differential Comment Uric Acid 4.0 Rad[address] Impressions Head CT 09/19/161401 Signed Impressions: Service Date/Time: Monday, September 19, 2016 17:52 - CONCLUSION: Slight scalp swelling without any significant hemorrhage or mass effect. Jason Roach MD Chest X-Ray 09/19/161401 Signed Impressions: Service Date/Time: Monday, September 19, 2016 14:38 - CONCLUSION: No acute disease. Beltran Deleon MD FACR Cervical Spine CT 09/19/161401 Signed Impressions: Service Date/Time: Monday, September 19, 2016 17:57 - CONCLUSION: Neural foramina compromise at C3-4 without any significant thecal sac stenosis. Jason Roach MD Shoulder X-Ray 09/19/16 Signed Impressions: Service Date/Time: Monday, September 19, 2016 14:40 - CONCLUSION: Normal examination for a patient of this age. Beltran Deleon MD FACR Chest CT 09/19/16 Signed Impressions: Service Date/Time: Monday, September 19, 2016 17:57 - CONCLUSION: Tiny pericardial effusion and slight bibasilar atelectasis. Jason Roach MD Abdomen/Pelvis CT 09/19/16 Signed Impressions: Service Date/Time: Monday, September 19, 2016 17:57 - CONCLUSION: 1. Enlarged spleen without definite evidence for laceration, however intrasplenic hematoma and/or parenchymal swelling is suspected. 2. Slight fluid in the perihepatic space. Jason Roach MD Narrative Exam GENERAL: This is a 76-year-old female sitting up in bed and in pain. SKIN: Warm and dry. HEAD: Atraumatic. Normocephalic. Left forehead ecchymosis. Sutures noted to left eyebrow. EYES: PERRLA ENT: No nasal bleeding or discharge. Mucous membranes pink and moist. NECK: Trachea midline. No JVD. CARDIOVASCULAR: Regular rate and rhythm. RESPIRATORY: No accessory muscle use. Lungs are clear to auscultation. Breath sounds equal bilaterally. No distress or dyspnea. GASTROINTESTINAL: BS + x 4 quads. Abdomen soft, non-tender, nondistended. Patient describes abdominal pain, with palpation of left upper quadrant. MUSCULOSKELETAL: Extremities without cyanosis, or edema. + peripheral pulses x 4 extremities. Warm with good capillary refill and sensation. MAEW. NEUROLOGICAL: Awake and alert. Normal speech and pattern. A/P Problem List: (1) Spleen hematoma (2) Shoulder pain, right (3) Fall Assessment and Plan ELIM IRA: This is a 76-year-old female who was found face down by her . (She has fallen at least 7 times in the past week.) Brief LOC. Patient is experiencing a significant decline in function at home. INJURIES: LEFT eyebrow (4 sutures) C3-C4 neural foramina compromise Slight pericardial effusion ?Enlarged spleen? - hematoma vs swelling Procedures: 09/22: IR for splenic embolization Consults: PCP, pulmonology, gynecology, IR. Diet: Regular diet. Tolerating po diet. Encourage good po intake with each meal. Pulmonary: Encourage good pulmonary toileting. IS at bedside and pt encouraged to use. Rationale for use explained to patient, and verbalized understanding. Sweta. PAIN Management: Tylenol po. IV morphine changed to morphine IR po. (Xanax) . Add morphine OIL GAS AND PIPE TESTER to manage her pain. H&H - 10.2 / 30.5 Follow a.m. labs Activity: OOB. PT ordered. GI prophylaxis: Protonix po Bowel regimen: Colace. MOM hs. BM x 2. DVT prophylaxis: Mechanical VTE with SCDs. Chemical management contraindicated at this time. DC Planning: Case management consulted for assistance with final discharge disposition. A referral has been placed to [facility] for admission. She may need full-time placement in a SNF. Post splenectomy vaccines ordered for tomorrow a.m.. Emotional support provided to patient and at bedside and plan of care discussed. Discussed with RN at bedside Patient is hemodynamically stable and being managed on the med/surg floor. The exam, history, and the medical decision-making described in the above note were completed with the assistance of the mid-level provider. I reviewed and agree with the findings presented. I attest that I had a [id number] encounter with the patient on the same day, and personally performed and documented my assessment and findings in the medical record. Problem Qualifiers (1) Spleen hematoma: Qualified Code: S36.029A - Spleen hematoma, initial encounter (2) Shoulder pain, right: Qualified Code: M25.511 - Acute pain of right shoulder (3) Fall: Qualified Code: W19.XXXA - Fall, initial encounter Bere Piña Sep 23, 2016 11:11 Tristan Lynn MD Sep 27, 2016 14:30
[2016-09-23] MEDS ORDERED: MORPHINE SULFATE 4 MG/ML INJ IV ONE (11:30)
[2016-09-23] MEDS ORDERED: DOCUSATE SODIUM 100 MG CAP PO PRN (12:45)
--- NOTE | 2016-09-23 13:26 | PD.CONS ---
HPI Date Seen: Sep 23, 2016 Time Seen: 13:18 Travel History International Travel<30 Days: No Contact w/Intl Traveler<30Days: No Known Affected Area: No History of Present Illness HPI After evaluation last evening, Serina had severe pain despite 1 gm ofirmev every 6 hours. LUQT and flank pain. incontinence is less shoulder is hurting less but movement restricted dysuria cough less but greatly exacerbates LUQ pain Allergies-Medications (Allergen,Severity, Reaction): Coded Allergies: Cephalosporins (Verified Allergy, Severe, 03/22/14) ANAPHYLACTIC REACTION Codeine (Verified Allergy, Severe, Rash, 03/22/14) Dilaudid (Unverified Allergy, Severe, 03/22/14) Hydrocodone (Verified Allergy, Severe, 03/22/14) ANAPHYLACTIC REACTION Meperidine (Verified Allergy, Severe, HALLUCINATION, 03/22/14) Penicillin (Verified Allergy, Severe, 03/22/14) HIVES Percocet (Verified Allergy, Severe, 03/22/14) PATIENT STATED COULD NOT TAKE IN PACU 12/03/11 Sulfa (Verified Allergy, Severe, 03/22/14) NAUSEA Home Meds Active Scripts Hydrodiuril 25 Mg Tab25 Mg PO DAILY #30 TAB Ref 1 Prov:Frde Lennon MD 02/06/14 Artificial Tears 15 Ml Soln1 Drop RIGHT EYE DIRECTED 30 Days Ref 3 Prov:Fred Lennon MD 02/06/14 Alprazolam (Xanax 1 mg)1 Mg Tab1 Mg PO TID PRN (ANXIETY) #90 Ref 0 Prov:Fred Lennon MD 02/06/14 Pantoprazole Sod (Protonix)40 Mg Tabdr40 Mg PO DAILY #30 TAB Ref 1 Prov:Fred Lennon MD 02/06/14 Multiple Vitamin (Multivitamin)1 Tab Tab1 Tab PO DAILY #30 TAB Ref 1 Prov:Fred Lennon MD 02/06/14 Reported Medications Lactobacillus Casei-Folic Acid ([facility] Rx)60-1.25 Mg Cap Daily 09/23/16 Paroxetine 20 Mg Tab20 Mg PO DAILY #30 TAB Ref 0 09/23/16 Bupropion HCl ER 24 HR 300 Mg Eri234 Mg PO DAILY Ref 0 2/7/17 Allopurinol 300 Mg Tlp998 Mg PO DAILY #30 TAB Ref 0 09/23/16 Sulfamethoxazole-Trimethoprim 800-160 Mg Tab1 Tab PO BID Ref 0 09/23/16 Pantoprazole 40 Mg Tab40 Mg PO BID #30 TAB Ref 0 09/23/16 Hydrochlorothiazide 25 Mg Tab25 Mg PO DAILY #30 TAB Ref 0 09/23/16 Carvedilol 3.125 Mg Tab3.125 Mg PO BID #60 TAB Ref 0 09/23/16 Simvastatin 40 Mg Tab40 Mg PO DAILY #30 TAB Ref 0 09/23/16 Mirabegron (Myrbetriq)50 Mg Tab50 Mg PO DAILY #30 TAB Ref 0 09/22/16 Gabapentin 600 Mg Sag613 Mg PO HS Ref 0 09/21/16 Gabapentin 300 Mg Jhx029 Mg PO DAILY Ref 0 09/21/16 Simvastatin 40 Mg Tab1 Tab PO HS 03/22/14 Discontinued Scripts Lisinopril 40 mg (Prinivil 40 mg)40 Mg Tab40 Mg PO DAILY #30 TAB Ref 1 Prov:Fred Lennon MD 02/06/14 DULOXETINE HCl (Cymbalta)60 Mg Cap60 Mg PO DAILY #30 CAP Ref 1 Prov:Fred Lennon MD 02/06/14 Zolpidem Tartrate (Ambien 10 Mg Tab)10 Mg Tab10 Mg PO HS PRN (INSOMNIA) #30 Ref 0 Prov:Fred Lennon MD 02/06/14 Metoprolol Succinate (Toprol Xl)50 Mg Tabcr50 Mg PO BID #60 TAB Ref 1 Prov:Fred Lennon MD 02/06/14 Commode 3:1 #1 Ea Prov:Joanne GastonP 02/02/14 Wheelchair Rental Ra #1 Ea Prov:Joanne GastonP 02/02/14 Walker Rolling #1 Ea Prov:Joanne GastonP 02/02/14 Physical Exam Narrative GENERAL: Well-nourished, well-developed patient. laceration above left eye healing right elbow less swollen bruises resolving spleen is enlarged and exquisitely tender EXTREMITIES: No cyanosis or edema brusies healing BACK: Nontender without obvious deformity. CVA tenderness noted on left NEUROLOGICAL: Awake and alert. Motor and sensory grossly within normal limits Normal speech. WBC elevated since interventional procedure Data Data Orders Us Guided Vascular Access (09/22/16 ) Transcath Iv Occlusion (09/22/16 ) F/U Thru Existing Cath (09/22/16 ) Angiogram, Select + Vessel (09/22/16 ) Vital Signs (Adult) Q15MX4,Q30MX4,Q1HX4 (09/22/16 16:40) ^ Notify Parameters (09/22/16 16:40) ^ Apply Pressure (09/22/16 16:40) ^ Dressings (09/22/16 16:40) Remove Urinary Catheter .ONCE (09/22/16 16:40) Iodixanol 320 Inj (Visipaque 320 Inj) (09/22/16 16:54) Gelatin 12 Mm/7 Mm Top (Gelfoam 12 Mm/7 (09/22/16 17:13) Consult Hospitalist (09/22/16 ) Hemoglobin (Hgb) (09/22/16 19:37) Hematocrit (Hct) (09/22/16 19:37) (Hub Use Only)Inp Phy Cons/Ref (09/22/16 19:49) ^ Other Nursing Orders (09/22/16 20:59) Complete Blood Count With Diff (09/23/16 06:00) Basic Metabolic Panel (Bmp) (09/23/16 06:00) Uric Acid (09/23/16 06:00) Acetaminophen Inj (Ofirmev Inj) (09/22/16 22:30) Pneumococcal-23 Polyvalent Inj (Pneumova (09/24/16 09:00) Haemoph B Polysac Conj Vac Inj (Acthib I (09/24/16 09:00) Meningococcal Conj Vaccine Inj (Menactra (09/24/16 09:00) Potassium Cl 40 Meq/30 Ml Liq (Kcl 40 Me (09/23/16 09:00) Urinalysis - C+S If Indicated (09/23/16 11:02) Specimen To Be Collected PRN (09/23/16 11:02) Morphine Inj (Morphine Inj) (09/23/16 11:30) Docusate Sodium (Colace) (09/23/16 12:45) Pantoprazole (Protonix) (09/23/16 21:00) Resp Incentive Spirometry (09/23/16 ) Activity Oob With Assistance (09/23/16 13:06) Cbc No Diff, Includes Plts (09/24/16 06:00) Basic Metabolic Panel (Bmp) (09/24/16 06:00) Hepatic Functional Panel (09/24/16 06:00) Allopurinol (Zyloprim) (09/23/16 13:15) Bupropion Xl 24 Hr (Wellbutrin Xl 24 Hr) (09/23/16 13:15) Carvedilol (Coreg) (09/23/16 21:00) Paroxetine (Paxil) (09/24/16 09:00) Ct Abd/Pel W Iv Contrast(Rout) (09/23/16 ) Ot Request For Service (09/23/16 13:13) Case Management Consult (09/23/16 ) Chest, Single Ap (09/23/16 ) Labs Laboratory Tests Test 09/22/16 09/23/16 21:40 03:45 Hemoglobin 11.2 10.2 Hematocrit 33.5 30.5 White Blood Count 18.1 Red Blood Count 3.36 Mean Corpuscular Volume 90.8 Mean Corpuscular Hemoglobin 30.5 Mean Corpuscular Hemoglobin 33.6 Concent Red Cell Distribution Width 19.3 Platelet Count 201 Mean Platelet Volume 8.5 Neutrophils (%) (Auto) 79.1 Lymphocytes (%) (Auto) 10.8 Monocytes (%) (Auto) 9.7 Eosinophils (%) (Auto) 0.2 Basophils (%) (Auto) 0.2 Neutrophils # (Auto) 14.3 Lymphocytes # (Auto) 1.9 Monocytes # (Auto) 1.8 Eosinophils # (Auto) 0.0 Basophils # (Auto) 0.0 CBC Comment DIFF FINAL Differential Comment Sodium Level 140 Potassium Level 3.2 Chloride Level 103 Carbon Dioxide Level 29.1 Anion Gap 8 Blood Urea Nitrogen 13 Creatinine 0.84 Estimat Glomerular Filtration 66 Rate Random Glucose 129 Uric Acid 4.0 Calcium Level 8.1 MDM Interpretation(s) Pain management with her splenic hematoma not adequate. Could there be a splenic infarction after emoblization or is this just pressure on capsule? Repeat CT hx of gout-- uric acid ok for now hx of uro sepsis (severe) needs culture with elevated WBC Samantha concerned about lungs-- CXR incontinence better with myrbetriq THE UNDERLYING ISSUES HERE ARE CHRONIC DIZZINESS WITH FREQUENT FALLS, WEAKNESS AND HER DESIRE TO MINIMIZE VOIDING TO AVOID FALLING. She got so dehydrated from restricting her fluids, she fell and lacerated her spleen. etiology of the vertigo and balance issues remains unclear once pain controlled and acute issues resolved, she needs to go to [facility]. Will be available to Dr. Guzman as a career development consultant and personal friend of Alicia. Admitting diagnosis: splenic hematoma, fall, right shoulder pain Condition: Stable Jazmine Chacko MD Sep 23, 2016 13:26
[2016-09-23] MEDS ORDERED: MORPHINE SULFATE 30 MG/30 ML PCA IV SCH (13:30)
[2016-09-23] MEDS ORDERED: NALOXONE HCL 0.4 MG/ML AMP IV PRN (13:30)
--- NOTE | 2016-09-23 13:55 | PD.CONS ---
[facility] Service [facility] Consult Requested By Dr. Shelley Chacko Reason for Consult Medical management Primary Care Physician Jourdan Reyes MD Diagnoses: History of Present Illness This is a pleasant 76-year-old female with past medical history of vertigo, hypertension, stress incontinence, gout, asthma. Patient was initially admitted on 09/19/2016 after she had a fall, was found face down by her with a laceration over her left eyebrow. Patient was admitted under trauma services. Patient has a history of vertigo, she thinks it may be positional. She's had multiple falls approximately 7 in the last week. According to her , she's become very deconditioned and has had a significant functional decline. Patient was initially evaluated, imaging studies were completed, no fractures were noted. An abdomen pelvis CT showed enlarged spleen without definitive evidence for laceration, however intrasplenic hematoma and intraparenchymal swelling is suspected. Slight fluid in the perihepatic space. Patient was admitted for close monitoring to the ICU with serial H&H's. On September 22, 2016, patient had a drop in hemoglobin 7.6, hematocrit 22.9. Patient had recent repeat CT imaging of the abdomen and noted with increasing hematoma. Interventional radiology was consulted and patient underwent splenic artery embolization. Patient has remained with significant pain to the left upper abdomen, she is currently an offirmev, morphine as well as gabapentin. Her H&H has remained stable, she did receive blood. She's noted with significant leukocytosis, WBC of 18.1, there is no fever reported. Patient has had a cough, it is congested, she is having difficulty taking deep breaths because of the severe pain. She does have some wheezing. Dr. Chacko who is a personal friend is also following the patient. She provided overview of patient's medical condition and her problems with vertigo. It appears the patient may have gotten dehydrated as she has severe stress incontinence and was trying to avoid getting up to void frequently. This may have led to worsening of vertigo symptoms which caused her to fall and cause injury. Patient states that she's had workup done per Dr. Witt, she has tried vestibular therapy with very little results. Patient indicates that her stress incontinence is controlled at this time, she is on Myrbetriq. She has some dysuria, a UA has been ordered and is pending. When she initially presented to the hospital, she had elevated creatinine was noted dehydrated but this has improved. Patient is examined in room 1729, she is alert oriented 3. She did have some trouble initially with morphine feeling disoriented but this has improved. Dr. Chacko is also at bedside examining patient. Hospitalist services are requested for medical management. (Madison Pillai) Review of Systems Constitutional: COMPLAINS OF: Dizziness Respiratory: COMPLAINS OF: Cough, Wheezing, Shortness of breath Gastrointestinal: COMPLAINS OF: Abdominal pain, Diarrhea Musculoskeletal: COMPLAINS OF: Joint Swelling (Madison Pillai) Past Family Social History Past Medical History Anxiety, asthma, hypercholesterolemia, gout, recent hearing loss, tongue cancer , stress incontinence Vertigo-follows up with Dr. 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, required rehabilitation at [facility] in 2013 Past Surgical History Hari's procedure with colostomy reversal, 2, hysterectomy Reported Medications Reported Meds & Active Scripts Active Hydrodiuril (Hydrochlorothiazide) 25 Mg Tab 25 Mg PO DAILY Artificial Tears 15 Ml Soln 1 Drop RIGHT EYE DIRECTED 30 Days Xanax 1 mg (Alprazolam) 1 Mg Tab 1 Mg PO TID PRN Protonix (Pantoprazole Sodium) 40 Mg Tabdr 40 Mg PO DAILY Multivitamin (Multivitamins) 1 Tab Tab 1 Tab PO DAILY Reported Restora Rx (Lactobacillus Casei-Folic Acid) 60-1.25 Mg Cap DAILY Paroxetine (Paroxetine HCl) 20 Mg Tab 20 Mg PO DAILY Bupropion HCl ER 24 HR (Bupropion HCl) 300 Mg Tab 300 Mg PO DAILY Allopurinol 300 Mg Tab 300 Mg PO DAILY Sulfamethoxazole-Trimethoprim 800-160 Mg Tab 1 Tab PO BID Pantoprazole (Pantoprazole Sodium) 40 Mg Tab 40 Mg PO BID Hydrochlorothiazide 25 Mg Tab 25 Mg PO DAILY Carvedilol 3.125 Mg Tab 3.125 Mg PO BID Simvastatin 40 Mg Tab 40 Mg PO DAILY Myrbetriq (Mirabegron) 50 Mg Tab 50 Mg PO DAILY Gabapentin 600 Mg Tab 600 Mg PO HS Gabapentin 300 Mg Cap 300 Mg PO DAILY Simvastatin 40 Mg Tab 1 Tab PO HS (Gross,Madison G. PRODUCTION STATISTICAL CLERK) Allergies: Coded Allergies: Cephalosporins (Verified Allergy, Severe, 03/22/14) ANAPHYLACTIC REACTION Codeine (Verified Allergy, Severe, Rash, 03/22/14) Dilaudid (Unverified Allergy, Severe, 03/22/14) Hydrocodone (Verified Allergy, Severe, 03/22/14) ANAPHYLACTIC REACTION Meperidine (Verified Allergy, Severe, HALLUCINATION, 03/22/14) Penicillin (Verified Allergy, Severe, 03/22/14) HIVES Percocet (Verified Allergy, Severe, 03/22/14) PATIENT STATED COULD NOT TAKE IN PACU 12/03/11 Sulfa (Verified Allergy, Severe, 03/22/14) NAUSEA Active Ordered Medications Inpatient Medications Acetaminophen (Ofirmev Inj) 1,000 mg Q6H PRN IV PAIN 1-10 Last administered on 09/23/16 05:00; Start 09/22/16 at 22:30 Acetaminophen (Tylenol) 650 mg Q6H PRN PO TEMPERATURE > 102 F; Start 09/19/16 at 20:00 Albuterol/ Ipratropium (Duoneb Neb) 1 ampule Q6HR NEB NEB Last administered on 09/23/16 09:42; Start 09/22/16 at 12:00 Allopurinol (Zyloprim) 300 mg DAILY PO ; Start 09/23/16 at 13:15 Alprazolam (Xanax) 1 mg Q8H PRN PO anxiety Last administered on 09/21/16 09:30 ; Start 09/19/16 at 20:00 Bacitracin (Baciguent Oint) 1 applic BID TOP Last administered on 09/23/16 08: 57; Start 09/19/16 at 21:00 Benzonatate (Tessalon) 200 mg TID PRN PO cough Last administered on 09/22/16 08 :36; Start 09/21/16 at 16:00 Bupropion HCl (Wellbutrin Sr) 150 mg BID PO ; Start 09/23/16 at 13:15 Carvedilol (Coreg) 3.125 mg BID PO ; Start 09/23/16 at 21:00 Chlorhexidine Gluconate (Chlorhexidine 2% Cloth) 3 pack UNSCH PRN TOP HYGIENIC CARE; Start 09/19/16 at 20:00 Colchicine (Colchicine) 0.6 mg DAILY PO ; Start 09/20/16 at 09:00; Stop 09/23/16 at 12:33; Status DC Diphtheria/ Tetanus/Acell Pertussis (Boostrix Inj) 0.5 ml ONCE ONCE IM Last administered on 09/19/16 16:34; Start 09/19/16 at 14:15; Stop 09/19/16 at 14:16; Status DC Docusate Sodium (Colace) 100 mg BID PRN PO CONSTIPATION; Start 09/23/16 at 12:45 Duloxetine HCl (Cymbalta Dr) 60 mg DAILY PO ; Start 09/20/16 at 09:00; Stop at 12:33; Status DC Enalaprilat (Vasotec Inj) 1.25 mg Q8H PRN IV SBP>180, DBP>95; Start 09/19/16 at 20:00 Gabapentin (Neurontin) 600 mg HS PO Last administered on 09/22/16 21:00; Start 09/21/16 at 21:00 Haemophilus b Polysacch Conj Vacc (Acthib Inj) 0.5 ml ONCE ONCE IM ; Start at 09:00; Stop 09/24/16 at 09:01 Hydrochlorothiazide (Hydrodiuril) 25 mg DAILY PO Last administered on 09/23/16 08:56; Start 09/20/16 at 09:00 IV Flush (NS Flush) 2 ml UNSCH PRN IVF FLUSH AFTER USING IV ACCESS Last administered on 09/20/16 01:39; Start 09/19/16 at 20:00 Lidocaine/ Epinephrine (Xylocaine-Epi 1%-1:100,000 Inj) 20 ml ONCE ONCE INFIL Last administered on 09/19/16 17:57; Start 09/19/16 at 14:15; Stop 09/19/16 at 14: 16; Status DC Lisinopril (Prinivil) 40 mg DAILY PO ; Start 09/20/16 at 09:00; Stop 09/23/16 at 13:07; Status DC Magnesium Hydroxide (Milk Of Magnesia Liq) 30 ml HS PO ; Start 09/21/16 at 21:00 Meningococcal Tetraval.Conjug.Vacc (Menactra Inj) 0.5 ml ONCE ONCE IM ; Start at 09:00; Stop 09/24/16 at 09:01 Metoprolol Succinate (Toprol Xl) 50 mg DAILY PO Last administered on 09/20/16 08:29; Start 09/20/16 at 09:00; Stop 09/23/16 at 12:34; Status DC Miscellaneous Information 1 Q361D XX ; Start 09/19/16 at 20:00 Morphine Sulfate (Morphine 1 Mg/ ml SLAG WORKER) 30 mg UNSCH IV ; Start 09/23/16 at 13:30 ; Status UNV Morphine Sulfate (Morphine Inj) 2 mg ONCE ONCE IV PUSH ; Start 09/23/16 at 13:45 ; Stop 09/23/16 at 13:46; Status UNV Morphine Sulfate (Msir) 10 mg Q4H PRN PO PAIN SCALE 6 TO 10 Last administered on 09/23/16 08:56; Start 09/21/16 at 13:00; Stop 09/23/16 at 13:32; Status DC Morphine Sulfate 4 mg 4 mg ONCE ONCE IV PUSH Last administered on 09/19/16 17: 27; Start 09/19/16 at 17:15; Stop 09/19/16 at 17:16; Status DC Multivitamins (Theragran) 1 tab DAILY PO Last administered on 09/22/16 08:33; Start 09/20/16 at 09:00; Stop 09/23/16 at 08:59; Status DC Naloxone HCl (Narcan Inj) 0.4 mg UNSCH PRN IV RESPIRATORY RATE LESS THAN 10; Start 09/23/16 at 13:30; Status UNV Ondansetron HCl (Zofran Inj) 4 mg Q6H PRN IV NAUSEA OR VOMITING Last administered on 09/23/16 09:30; Start 09/19/16 at 20:00 Pantoprazole Sodium (Protonix) 40 mg BID PO ; Start 09/23/16 at 21:00 Paroxetine HCl (Paxil) 20 mg DAILY PO ; Start 09/24/16 at 09:00 SLAG WORKER Dosage Infused (Pha) 1 Q8HR .XX ; Start 09/23/16 at 14:00; Status UNV Pneumococcal Polyvalent Vaccine (Pneumovax-23 Inj) 25 mcg ONCE ONCE IM ; Start 09/24/16 at 09:00; Stop 09/24/16 at 09:01 Potassium Chloride 40 meq 40 meq ONCE ONCE PO Last administered on 09/22/16 08 :32; Start 09/22/16 at 07:45; Stop 09/22/16 at 11:37; Status DC Potassium Chloride (KCl 40 Meq/30 ml Liq) 40 meq Q12HR PO Last administered on 09/23/16 09:30; Start 09/23/16 at 09:00; Stop 09/24/16 at 11:00 Sodium Chloride (NS 1000 ml Inj) 1,000 ml @ 150 mls/hr Q6H40M IV Last administered on 09/21/16 08:54; Start 09/19/16 at 19:55; Stop 09/21/16 at 11:53; Status DC Sodium Chloride (NS 250 ml Inj) 250 ml @ 15 mls/hr ONCE ONCE IV Last administered on 09/22/16 08:30; Start 09/22/16 at 08:30; Stop 09/23/16 at 01:09; Status DC Zolpidem Tartrate (Ambien) 10 mg HS PRN PO insomnia; Start 09/19/16 at 20:00 Social History , 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 No smoking, no ETOH, no substance abuse. (Madison Pillai) Physical Exam Vital Signs Vital Signs Date Time Temp Pulse Resp B/P Pulse Ox O2 Delivery O2 Flow Rate FiO2 09/23/16 12:00 97.8 76 19 187/79 94 09/23/16 09:39 94 Nasal Cannula 2.00 09/23/16 08:00 98.0 65 18 127/63 97 09/23/16 04:23 90 Nasal Cannula 2.00 09/23/16 04:00 97.8 72 18 127/68 95 09/23/16 04:00 97.8 72 18 127/68 95 09/23/16 00:00 98.2 74 18 133/72 94 09/22/16 20:55 98 Nasal Cannula 3.00 09/22/16 20:00 99.1 72 18 116/62 94 09/22/16 17:25 73 18 155/78 98 09/22/16 17:05 71 18 148/77 97 09/22/16 16:35 70 16 138/75 98 09/22/16 16:05 65 18 160/78 98 09/22/16 15:35 65 18 165/80 98 2/6/17 15:20 63 16 147/69 97 09/22/16 15:05 68 18 138/68 97 09/22/16 14:50 98.2 83 18 126/86 93 Physical Exam GENERAL: This is a well-nourished, well-developed patient, in no apparent distress. SKIN: Laceration noted to left eyebrow, suture. Bruising noted to left forearm , small skin tear noted. There is some bruising noted over right shoulder. HEAD: Atraumatic. Normocephalic. No temporal or scalp tenderness. EYES: Pupils equal round and reactive. Extraocular motions intact. No scleral icterus. No injection or drainage. ENT: Nose without bleeding, purulent drainage or septal hematoma. Throat without erythema, tonsillar hypertrophy or exudate. Uvula midline. Airway patent. NECK: Trachea midline. No JVD or lymphadenopathy. Supple, nontender, no meningeal signs. CARDIOVASCULAR: Regular rate and rhythm without murmurs, gallops, or rubs. RESPIRATORY: Coarse rhonchi upper lobes, expiratory wheezing GASTROINTESTINAL: Abdomen slightly firm, voluntary guarding. Bowel sounds hypoactive 4. Tenderness to palpation to left upper quadrant, palpable spleen. MUSCULOSKELETAL: Extremities without clubbing, cyanosis, or edema. No joint tenderness, effusion, or edema noted. No calf tenderness. Negative Homans sign bilaterally. NEUROLOGICAL: Awake and alert. Cranial nerves II through XII intact. Motor and sensory grossly within normal limits. Five out of 5 muscle strength in all muscle groups. Normal speech. Laboratory Laboratory Tests Test 09/22/16 09/23/16 21:40 03:45 Hemoglobin 11.2 10.2 Hematocrit 33.5 30.5 White Blood Count 18.1 Red Blood Count 3.36 Mean Corpuscular Volume 90.8 Mean Corpuscular Hemoglobin 30.5 Mean Corpuscular Hemoglobin 33.6 Concent Red Cell Distribution Width 19.3 Platelet Count 201 Mean Platelet Volume 8.5 Neutrophils (%) (Auto) 79.1 Lymphocytes (%) (Auto) 10.8 Monocytes (%) (Auto) 9.7 Eosinophils (%) (Auto) 0.2 Basophils (%) (Auto) 0.2 Neutrophils # (Auto) 14.3 Lymphocytes # (Auto) 1.9 Monocytes # (Auto) 1.8 Eosinophils # (Auto) 0.0 Basophils # (Auto) 0.0 CBC Comment DIFF FINAL Differential Comment Sodium Level 140 Potassium Level 3.2 Chloride Level 103 Carbon Dioxide Level 29.1 Anion Gap 8 Blood Urea Nitrogen 13 Creatinine 0.84 Estimat Glomerular Filtration 66 Rate Random Glucose 129 Uric Acid 4.0 Calcium Level 8.1 (Madison Pillai ALEX) Result Diagram: 09/23/16 0345 09/23/16 0345 Imaging Last Impressions Celiac/Hepatic Arteriogram 09/22/16 0000 Signed Impressions: Service Date/Time: Thursday, September 22, 2016 13:10 - CONCLUSION: 1. Uncomplicated Splenic artery embolization Chapincito Taylor MD Abdomen/Pelvis CT 09/21/16 0300 Signed Impressions: Service Date/Time: Wednesday, September 21, 2016 03:01 - CONCLUSION: 1. Inferior splenic laceration/contusion with moderate perisplenic hematoma and a small amount of blood products in the left retroperitoneum. It is difficult to determine if the perisplenic hematoma has changed in size. It is either stable to slightly increased in size compared to the prior study from 2 days ago. 2. Stable small amount of mildly dense right perihepatic free fluid. Given the density it is possible that this fluid is complicated by blood products. Gerardo Valiente MD Chest CT 09/21/16 0000 Signed Impressions: Service Date/Time: Wednesday, September 21, 2016 03:01 - CONCLUSION: 1. Trace bilateral pleural effusions with atelectasis in the lower lobes. There is wedge-shaped consolidation in the right upper lobe versus fluid in the superior aspect of the major fissure. 2. Coronary artery calcification. Gerardo Valiente MD Head CT 09/19/16 140 Signed Impressions: Service Date/Time: Monday, September 19, 2016 17:52 - CONCLUSION: Slight scalp swelling without any significant hemorrhage or mass effect. Jason Roach MD Chest X-Ray 09/19/161401 Signed Impressions: Service Date/Time: Monday, September 19, 2016 14:38 - CONCLUSION: No acute disease. Beltran Deleon MD FACR Cervical Spine CT 09/19/16 140 Signed Impressions: Service Date/Time: Monday, September 19, 2016 17:57 - CONCLUSION: Neural foramina compromise at C3-4 without any significant thecal sac stenosis. Jason Roach MD Shoulder X-Ray 09/19/16 0000 Signed Impressions: Service Date/Time: Monday, September 19, 2016 14:40 - CONCLUSION: Normal examination for a patient of this age. Beltran Deleon MD FACR (FreyaMadison BradenAnabel JOHNSON) A/P Diagnosis: (1) Injury of spleen with hematoma (2) Fall (3) Spleen hematoma (4) Shoulder pain, right (5) Anemia (6) Leukocytosis (7) Vertigo (8) Stress incontinence (9) Hypertension (10) GERD (gastroesophageal reflux disease) (11) Depression (12) Asthma Assessment and Plan Thank you for this consultation, we will assist with medical management 76-year-old female status post fall, possibly secondary to vertigo and dehydration, was found with splenic hematoma underwent splenic artery embolization. Patient remains with considerable pain to left upper abdomen. -Trauma services following patient Continue to monitor H&H Continue with pain management, Tylenol, morphine IV, gabapentin We will repeat CT of the abdomen and pelvis to evaluate hematoma Leukocytosis, increased cough and wheezing, concern for possible infectious process -We'll order a chest x-ray -UA has been ordered Incentive spirometer Monitor CBC We will wait for results to evaluate whether antibiotics need to be initiated Right shoulder pain secondary to fall, x-rays show no injury We will order occupational therapy Hypertension, blood pressures noted elevated likely secondary to pain Medications have been reviewed, initiated as indicated Stress incontinence, it is controlled Continue with her Myrbetriq Depression Resume home medications Asthma, noted with wheezing Continue with DuoNeb Vertigo with history of multiple falls, possibly positional vertigo. Has undergone evaluation with Dr. Witt as outpatient. Continue to monitor Consult physical therapy for evaluation GERD Continue Protonix 40 mg by mouth twice a day Physical therapy and occupational therapy have been ordered SCDs for DVT prophylaxis Protonix 40 mg by mouth twice a day for GI prophylax Case management has been consulted for CIR evaluation. Patient is deconditioned , has had multiple falls at home secondary to vertigo. During this hospitalization, patient has had very little mobility and has remained in considerable pain. Plan of care has been discussed with the patient and her , their questions have been answered in detail. Plan of care discussed with attending and registered nurse. Further management of the patient will be dependent on the hospital course This patient was seen by myself and Dr. Guzman, this H&P is written on his behalf (Madison Pillai) Assessment and Plan Patient seen and examined as above [id number] time spent with the patient Labs and radiological data reviewed Medications reviewed Notes reviewed Plan of care discussed with PRODUCTION STATISTICAL CLERK Discussed with patient and her Dr. Anthony at bedside in detail Discussed with Dr. Dunn surgeon Discussed with Dr. Chacko Discussed with RN (Christine Guzman MD) Problem Qualifiers (1) Injury of spleen with hematoma: Qualified Code: S36.029A - Injury of spleen with hematoma, initial encounter (2) Fall: Qualified Code: W19.XXXA - Fall, initial encounter (3) Spleen hematoma: Qualified Code: S36.029A - Spleen hematoma, initial encounter (4) Shoulder pain, right: Qualified Code: M25.511 - Acute pain of right shoulder (5) Leukocytosis: Qualified Code: D72.829 - Leukocytosis, unspecified type (6) Hypertension: Qualified Code: I10 - Essential hypertension (7) GERD (gastroesophageal reflux disease): Qualified Code: K21.9 - Gastroesophageal reflux disease, esophagitis presence not specified (8) Depression: Qualified Code: F32.9 - Depression, unspecified depression type (9) Asthma: Qualified Code: J45.909 - Uncomplicated asthma, unspecified asthma severity Madison Pillai Sep 23, 2016 13:55 Christine Guzman MD Sep 23, 2016 15:24
[2016-09-23] MEDS: PCA - TOTAL MG MORPHINE DELIVERED PER SHIFT SCH ×2 (14:00→22:00)
[2016-09-23] MEDS ORDERED: MORPHINE SULFATE 4 MG/ML INJ IV PUSH ONE (14:00)
[2016-09-23] MEDS ORDERED: IOHEXOL 350 MG/ML 10 ML VIAL (for RAD DIAG) IV ONE (14:04)
--- NOTE | 2016-09-23 14:29 | RADRPT ---
EXAM DATE/TIME: 09/23/2016 12:07 [facility] COMPARISON: CHEST SINGLE AP, September 19, 2016, 14:38. INDICATIONS : Cough. MEDICAL HISTORY : Cardiovascular disease. Hypertension. SURGICAL HISTORY : None. ENCOUNTER: Initial ACUITY: 1 week PAIN SCORE: 0/10 LOCATION: Bilateral chest FINDINGS: Mild patchiness is noted within the left lung base consistent with atelectasis and/or developing infi ltrate. The heart is stable. The right lung is clear. CONCLUSION: Mild left basilar patchiness consistent with and/or infiltrate. Clinical correlation is recommended. Zheng Navarrete MD on September 23, 2016 at 14:18 Board Certified Radiologist. This report was verified electronically.
[2016-09-23] MEDS ORDERED: XANA1TAB2 PO (14:39)
[2016-09-23] MEDS: buPROPion HCL 150 MG SUSTAINED RELEASE TAB PO SCH ×2 (14:42→22:16)
[2016-09-23] MEDS: ALLOPURINOL 300 MG TAB PO SCH (14:42)
--- NOTE | 2016-09-23 14:49 | RADRPT ---
EXAM DATE/TIME: 09/23/2016 13:55 [facility] COMPARISON: CT ABDOMEN & PELVIS W CONTRAST, September 21, 2016, 3:01. INDICATIONS : Follow up splenic hematoma. IV CONTRAST: 80 cc Omnipaque 350 (iohexol) IV ORAL CONTRAST: No oral contrast ingested. RADIATION DOSE: 18.66 CTDIvol (mGy) MEDICAL HISTORY : Cardiovascular disease. Hypertension. Tongue cancer. SURGICAL HISTORY : Hernia repair, Cholecystecomy, Colostomy, Hysterectomy. ENCOUNTER: Subsequent ACUITY: 1 week PAIN SCALE: 10/10 LOCATION: Left abdomen TECHNIQUE: Volumetric scanning of the abdomen and pelvis was performed. Using automated exposure control and ad justment of the mA and/or kV according to patient size, radiation dose was kept as low as reasonably achievable to obtain optimal diagnostic quality images. FINDINGS: LOWER LUNGS: Bilateral pleural effusions and common atelectatic changes are slightly more prominent when compared to prior. Bilateral breast augmentation. LIVER: Benign-appearing 2 cm cyst in the left hepatic lobe. Minimal intrahepatic biliary duct dilatation pro bably secondary to prior cholecystectomy. SPLEEN: Hypoperfusion characteristic of the recent embolization. There is some centrally preserved splenic pe rfusion characteristic of a graded embolization. High densities fluid around the spleen is again iden tified and is basically stable when compared to the prior. PANCREAS: Within normal limits. KIDNEYS: Normal in size and shape. There is no mass, stone or hydronephrosis. ADRENAL GLANDS: Within normal limits. VASCULAR: There is no aortic aneurysm. BOWEL/MESENTERY: Findings of prior bowel surgery with a radiation of the colon. There is dilation of the remaining bow el in the right upper abdominal quadrant, unchanged from prior. This probably represents regional [place]. There is some intraperitoneal ascites which may be slightly more prominent when compared with toney or ABDOMINAL WALL: Wire mesh hernia repair. Mesh appears to be intact. RETROPERITONEUM: There is no lymphadenopathy. BLADDER: No wall thickening or mass. REPRODUCTIVE: Within normal limits. INGUINAL: There is no lymphadenopathy or hernia. MUSCULOSKELETAL: Within normal limits for patient age. CONCLUSION: 1. CT findings characteristic of the interval graded splenic embolization. There is still preservatio n of the splenic blood flow near the hilum. 2. High density perisplenic fluid is characteristic of a perisplenic hemorrhage which is unchanged fr om prior. 3. Peritoneal ascites may be slightly more prominent when compared to prior. 4. Findings the prior bowel surgery with colonic resection. Focal dilation of bowel loops in the righ t upper abdominal quadrant probably represents regional atony, unchanged from prior. 5. 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 6. Slight increase in bilateral pleural effusions with concomitant atelectatic changes in the bases. Effusions are still small, however there Eduar Capps MD on September 23, 2016 at 14:06 Board Certified Radiologist. This report was verified electronically.
[2016-09-23 16:01] LABS: BLOOD, URINE NEG (NEG); COMMENT (UR) CULT NOT INDICATED; CULTURE IF INDICATED CULT NOT INDICATED; GLUCOSE,URINE NEG (NEG); KETONE, URINE NEG (NEG); NITRITE,URINE NEG (NEG); PH, URINE 6.5 (5.0-8.5); URINE COLOR YELLOW (YELLW/STRAW)
[2016-09-23] MEDS ORDERED: SODIUM CHLOR 0.9% 1000 ML INJ 1,000 ML IV SCH (17:00)
[2016-09-23] MEDS ORDERED: LEVOFLOXACIN 500 MG TAB PO SCH (17:00)
[2016-09-23] MEDS ORDERED: guaiFENesin/CODEINE SYRUP 200 MG/20 MG/10 ML CUP PO PRN (18:15)
[2016-09-23] MEDS: MAGNESIUM HYDROXIDE SUSP 30 ML CUP PO SCH (21:00)
[2016-09-23] MEDS: CARVEDILOL 3.125 MG TAB PO SCH (22:16)
[2016-09-24] VITALS (10 sets, daily range): BP systolic 96–137; BP diastolic 52–78; PULSE 65–109; RESP 16–20; TEMP 97.6–99.1; O2SAT 88–99
[2016-09-24] MEDS: RESP: ALBUTEROL 2.5 MG/IPRATROPIUM 0.5 MG NEB (SCH) NEB ×5 (03:46→20:21)
[2016-09-24] MEDS: CHLORHEXIDINE GLUCONATE 2 % 1 PACK (2 CLOTHS) TOP SCH (04:00)
[2016-09-24] MEDS ORDERED: MORPHINE SULFATE 4 MG/ML INJ IV PRN (05:15)
[2016-09-24] MEDS ORDERED: NALOXONE HCL 0.4 MG/ML AMP ONE (06:25)
[2016-09-24 07:46] LABS: BICARBONATE 23.7 MEQ/L (21.0-32.0); INDIRECT BILIRUBIN 0.8 MG/DL (0.0-0.8); POTASSIUM 4.2 MEQ/L (3.5-5.1); TOTAL BILIRUBIN ADULT 1.3 MG/DL (0.2-1.0)
--- NOTE | 2016-09-24 08:19 | RADRPT ---
EXAM DATE/TIME: 09/24/2016 07:40 [facility] COMPARISON: CHEST SINGLE AP, September 23, 2016, 12:07. INDICATIONS: Congestion. MEDICAL HISTORY: Cardiovascular disease. Hypertension. Tongue cancer. SURGICAL HISTORY: Hernia repair, Cholecystectomy, Colostomy, Hysterectomy. ENCOUNTER: Subsequent ACUITY: 1 week PAIN SCORE: 0/10 LOCATION: Bilateral chest FINDINGS: The heart is stable. Mild bibasilar patchiness is noted consistent with atelectasis and/or infiltrat es. There is a poor inspiratory result. CONCLUSION: 1. Mild bibasilar patchiness consistent with atelectasis and/or infiltrates. Clinical correlation i s recommended. 2. Poor inspiratory result. Zheng Navarrete MD on September 24, 2016 at 8:13 Board Certified Radiologist. This report was verified electronically.
--- NOTE | 2016-09-24 08:29 | PD.CONS ---
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 Embolization otherwise successful with good Hemoglobin and no further leaking. 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 I am told she became obtunded in night and required Narcan sleeping soundly at this time and not disturbed Allergies-Medications (Allergen,Severity, Reaction): Coded Allergies: Cephalosporins (Verified Allergy, Severe, 03/22/14) ANAPHYLACTIC REACTION Codeine (Verified Allergy, Severe, Rash, 03/22/14) Dilaudid (Unverified Allergy, Severe, 03/22/14) Hydrocodone (Verified Allergy, Severe, 03/22/14) ANAPHYLACTIC REACTION Meperidine (Verified Allergy, Severe, HALLUCINATION, 03/22/14) Penicillin (Verified Allergy, Severe, 03/22/14) HIVES Percocet (Verified Allergy, Severe, 03/22/14) PATIENT STATED COULD NOT TAKE IN PACU 12/03/11 Sulfa (Verified Allergy, Severe, 03/22/14) NAUSEA Home Meds Reported Medications Alprazolam (Xanax)1 Mg Tab1 Mg PO TID PRN (ANXIETY) Ref 0 09/23/16 Lactobacillus Casei-Folic Acid (Restora Rx)60-1.25 Mg Cap Daily 09/23/16 Paroxetine 20 Mg Tab20 Mg PO DAILY #30 TAB Ref 0 09/23/16 Bupropion HCl ER 24 HR 300 Mg [id number] Mg PO DAILY Ref 0 09/23/16 Allopurinol 300 Mg [id number] Mg PO DAILY #30 TAB Ref 0 09/23/16 Sulfamethoxazole-Trimethoprim 800-160 Mg Tab1 Tab PO BID Ref 0 09/23/16 Pantoprazole 40 Mg Tab40 Mg PO BID #30 TAB Ref 0 09/23/16 Hydrochlorothiazide 25 Mg Tab25 Mg PO DAILY #30 TAB Ref 0 09/23/16 Carvedilol 3.125 Mg Tab3.125 Mg PO BID #60 TAB Ref 0 09/23/16 Simvastatin 40 Mg Tab40 Mg PO DAILY #30 TAB Ref 0 09/23/16 Mirabegron (Myrbetriq)50 Mg Tab50 Mg PO DAILY #30 TAB Ref 0 09/22/16 Gabapentin 600 Mg [id number] Mg PO HS Ref 0 09/21/16 Gabapentin 300 Mg [id number] Mg PO DAILY Ref 0 09/21/16 Discontinued Scripts Lisinopril 40 mg (Prinivil 40 mg)40 Mg Tab40 Mg PO DAILY #30 TAB Ref 1 Prov:Fred Lennon MD 02/06/14 DULOXETINE HCl (Cymbalta)60 Mg Cap60 Mg PO DAILY #30 CAP Ref 1 Prov:Fred Lennon MD 02/06/14 Zolpidem Tartrate (Ambien 10 Mg Tab)10 Mg Tab10 Mg PO HS PRN (INSOMNIA) #30 Ref 0 Prov:Fred Lennon MD 02/06/14 Metoprolol Succinate (Toprol Xl)50 Mg Tabcr50 Mg PO BID #60 TAB Ref 1 Prov:Fred Lennon MD 02/06/14 Commode 3:1 #1 Ea Prov:Joanne Gaston 02/02/14 Wheelchair Rental Ra #1 Ea Prov:Joanne GastonP 02/02/14 Walker Rolling #1 Ea Prov:Joanne GastonP 02/02/14 Physical Exam Narrative not examined this am Data Data Orders Pneumococcal-23 Polyvalent Inj (Pneumova (09/24/16 09:00) Haemoph B Polysac Conj Vac Inj (Acthib I (09/24/16 09:00) Meningococcal Conj Vaccine Inj (Menactra (09/24/16 09:00) Potassium Cl 40 Meq/30 Ml Liq (Kcl 40 Me (09/23/16 09:00) Urinalysis - C+S If Indicated (09/23/16 11:02) Specimen To Be Collected PRN (09/23/16 11:02) Morphine Inj (Morphine Inj) (09/23/16 11:30) Docusate Sodium (Colace) (09/23/16 12:45) Pantoprazole (Protonix) (09/23/16 21:00) Resp Incentive Spirometry (09/23/16 ) Activity Oob With Assistance (09/23/16 13:06) Cbc No Diff, Includes Plts (09/24/16 06:00) Basic Metabolic Panel (Bmp) (09/24/16 06:00) Hepatic Functional Panel (09/24/16 06:00) Allopurinol (Zyloprim) (09/23/16 13:15) Carvedilol (Coreg) (09/23/16 21:00) Paroxetine (Paxil) (09/24/16 09:00) Ct Abd/Pel W Iv Contrast(Rout) (09/23/16 ) Ot Request For Service (09/23/16 13:13) Case Management Consult (09/23/16 ) Chest, Single Ap (09/23/16 ) Scd Bilateral/Knee High RAMA.QSHIFT (09/23/16 13:26) ^ Monitor (09/23/16 13:26) ^ Notify Dr: Blood Pressure (09/23/16 13:26) ^ Notify Dr: Respiratory Rate (09/23/16 13:26) ^ Notify Dr: Other (09/23/16 13:26) Naloxone Inj (Narcan Inj) (09/23/16 13:30) Morphine 1 Mg/Ml Rubber Tubing Backer (Morphine 1 Mg/Ml P (09/23/16 13:30) Rubber Tubing Backer Total Dose - Morphine (09/23/16 14:00) Bupropion Sr (Wellbutrin Sr) (09/23/16 13:15) Morphine Inj (Morphine Inj) (09/23/16 14:00) Iohexol 350 Inj (Omnipaque 350 Inj) (09/23/16 14:04) Equip, Rubber Tubing Backer Pump Use Of (09/23/16 14:25) Levofloxacin (Levaquin) (09/23/16 17:00) Sodium Chlor 0.9% 1000 Ml Inj (Ns 1000 M (09/23/16 17:00) Guaifen-Cod 200-20 Mg/10ml Liq (Robituss (09/23/16 18:15) Chest, Single Ap (09/24/16 ) Morphine Inj (Morphine Inj) (09/24/16 05:15) Naloxone Inj (Narcan Inj) (09/24/16 06:25) Labs Laboratory Tests Test 09/23/16 09/24/16 15:00 06:17 Urine Color YELLOW Urine Turbidity CLEAR Urine pH 6.5 Urine Specific [place] 1.031 Urine Protein NEG Urine Glucose (UA) NEG Urine Ketones NEG Urine Occult Blood NEG Urine Nitrite NEG Urine Bilirubin NEG Urine Urobilinogen LESS THAN 2.0 Urine Leukocyte Esterase NEG Microscopic Urinalysis Comment CULT NOT INDICATED Sodium Level 139 Potassium Level 4.2 Chloride Level 103 Carbon Dioxide Level 23.7 Anion Gap 12 Blood Urea Nitrogen 14 Creatinine 0.80 Estimat Glomerular Filtration 70 Rate Random Glucose 81 Calcium Level 8.4 Total Bilirubin 1.3 Direct Bilirubin 0.5 Indirect Bilirubin 0.8 Aspartate Amino Transf 43 (AST/SGOT) Alanine Aminotransferase 24 (ALT/SGPT) Alkaline Phosphatase 76 Total Protein 5.4 Albumin 2.3 MDM Interpretation(s) stable POD 2 splenic artery embolization with conservative management to avoid splenectomy pain management as required continue to assess need for PT--her shoulder is quite restricted from fall and that should meet criteria for Christian monitor incontinence and cough Admitting diagnosis: splenic hematoma, fall, right shoulder pain Condition: Stable Jazmine Chacko MD Sep 24, 2016 08:29
[2016-09-24] MEDS ORDERED: PNEUMOCOCCAL POLYVALENT INJ 25 MCG/0.5 ML SYR IM ONE ×2 (09:00→14:00)
[2016-09-24] MEDS ORDERED: MENINGOCOCCAL CONJUGATE VACCINE 0.5 ML VIAL IM ONE ×2 (09:00→14:00)
[2016-09-24] MEDS ORDERED: HAEMOPH B POLYSACCH CONJ VACCINE 0.5 ML VIAL IM ONE ×2 (09:00→14:00)
[2016-09-24] MEDS: POTASSIUM CL 40 MEQ/30 ML LIQ UDC PO SCH (09:00)
[2016-09-24] MEDS: CARVEDILOL 3.125 MG TAB PO SCH ×2 (10:12→21:07)
[2016-09-24] MEDS: HYDROCHLOROTHIAZIDE 25 MG TAB PO SCH (10:12)
[2016-09-24] MEDS: PANTOPRAZOLE SOD 40 MG DELAYED RELEASE TAB PO SCH ×2 (10:12→21:08)
[2016-09-24] MEDS: ALLOPURINOL 300 MG TAB PO SCH (10:13)
[2016-09-24] MEDS: PARoxetine HCL 20 MG TAB PO SCH (10:13)
[2016-09-24] MEDS: BACITRACIN TOP OINT 15 GM TUBE TOP SCH ×2 (10:13→21:13)
[2016-09-24] MEDS: GABAPENTIN 300 MG CAP PO SCH ×2 (10:13→21:08)
[2016-09-24] MEDS: buPROPion HCL 150 MG SUSTAINED RELEASE TAB PO SCH ×2 (10:13→21:08)
--- NOTE | 2016-09-24 10:29 | HHI.PR ---
Subjective Remarks Patient has significant improvement of her pain since yesterday She can take some deep breathing She has some cough No chest pain Is still some upper abdominal pain left-sided No other complaint next line review of systems a 10 point system otherwise unremarkable Objective Objective Results - Vital Signs Date Time Temp Pulse Resp B/P Pulse Ox O2 Delivery O2 Flow Rate FiO2 09/24/16 08:00 97.7 91 17 137/74 96 09/24/16 07:30 94 Nasal Cannula 2.00 09/24/16 04:00 97.6 65 18 125/65 96 09/24/16 03:47 92 Nasal Cannula 3.00 09/24/16 00:00 98.6 109 20 114/77 96 09/23/16 22:00 20 09/23/16 20:00 99.9 100 20 166/82 95 09/23/16 16:00 97.7 77 19 119/56 94 09/23/16 15:49 94 Nasal Cannula 3.00 09/23/16 15:15 16 09/23/16 14:48 16 09/23/16 12:00 97.8 76 19 187/79 94 I/O 09/23/16 09/23/16 09/23/16 09/24/16 09/24/16 09/24/16 07:00 15:00 23:00 07:00 15:00 23:00 Intake Total 240 ml 325 ml 464 ml 120 ml 120 ml Output Total 500 ml 500 ml Balance 240 ml 325 ml -36 ml -380 ml 120 ml Intake Oral 240 ml 325 ml 240 ml 120 ml 120 ml IV Total 224 ml Output Urine Total 500 ml 500 ml # Voids 2 2 # Bowel Movements 1 0 0 Result Diagram: 09/23/16 0345 09/24/16 0617 Imaging Last Impressions Celiac/Hepatic Arteriogram 09/22/16 0000 Signed Impressions: Service Date/Time: Thursday, September 22, 2016 13:10 - CONCLUSION: 1. Uncomplicated Splenic artery embolization Chapincito Taylor MD Abdomen/Pelvis CT 09/21/16 0300 Signed Impressions: Service Date/Time: Wednesday, September 21, 2016 03:01 - CONCLUSION: 1. Inferior splenic laceration/contusion with moderate perisplenic hematoma and a small amount of blood products in the left retroperitoneum. It is difficult to determine if the perisplenic hematoma has changed in size. It is either stable to slightly increased in size compared to the prior study from 2 days ago. 2. Stable small amount of mildly dense right perihepatic free fluid. Given the density it is possible that this fluid is complicated by blood products. Gerardo Valiente MD Chest CT 09/21/16 0000 Signed Impressions: Service Date/Time: Wednesday, September 21, 2016 03:01 - CONCLUSION: 1. Trace bilateral pleural effusions with atelectasis in the lower lobes. There is wedge-shaped consolidation in the right upper lobe versus fluid in the superior aspect of the major fissure. 2. Coronary artery calcification. Gerardo Valiente MD Head CT 09/19/16 1402 Signed Impressions: Service Date/Time: Monday, September 19, 2016 17:52 - CONCLUSION: Slight scalp swelling without any significant hemorrhage or mass effect. Jason Roach MD Chest X-Ray 09/19/16 140 Signed Impressions: Service Date/Time: Monday, September 19, 2016 14:38 - CONCLUSION: No acute disease. Beltran Deleon MD FACR Cervical Spine CT 09/19/16 140 Signed Impressions: Service Date/Time: Monday, September 19, 2016 17:57 - CONCLUSION: Neural foramina compromise at C3-4 without any significant thecal sac stenosis. Jason Roach MD Shoulder X-Ray 09/19/16 0000 Signed Impressions: Service Date/Time: Monday, September 19, 2016 14:40 - CONCLUSION: Normal examination for a patient of this age. Beltran Deleon MD FACR Other Results Laboratory Tests Test 09/23/16 09/24/16 15:00 06:17 Urine Color YELLOW Urine Turbidity CLEAR Urine pH 6.5 Urine Specific [place] 1.031 Urine Protein NEG Urine Glucose (UA) NEG Urine Ketones NEG Urine Occult Blood NEG Urine Nitrite NEG Urine Bilirubin NEG Urine Urobilinogen LESS THAN 2.0 Urine Leukocyte Esterase NEG Microscopic Urinalysis Comment CULT NOT INDICATED Sodium Level 139 Potassium Level 4.2 Chloride Level 103 Carbon Dioxide Level 23.7 Anion Gap 12 Blood Urea Nitrogen 14 Creatinine 0.80 Estimat Glomerular Filtration 70 Rate Random Glucose 81 Calcium Level 8.4 Total Bilirubin 1.3 Direct Bilirubin 0.5 Indirect Bilirubin 0.8 Aspartate Amino Transf 43 (AST/SGOT) Alanine Aminotransferase 24 (ALT/SGPT) Alkaline Phosphatase 76 Total Protein 5.4 Albumin 2.3 Physical Exam Physical Exam GENERAL: This is a well-nourished, well-developed patient, in no apparent distress. SKIN: Laceration noted to left eyebrow, suture. Bruising noted to left forearm , small skin tear noted. There is some bruising noted over right shoulder. HEAD: Atraumatic. Normocephalic. No temporal or scalp tenderness. EYES: Pupils equal round and reactive. Extraocular motions intact. No scleral icterus. No injection or drainage. ENT: Nose without bleeding, purulent drainage or septal hematoma. Airway patent. NECK: Trachea midline. No JVD or lymphadenopathy. Supple. CARDIOVASCULAR: Regular rate and rhythm without murmurs, gallops, or rubs. RESPIRATORY: Coarse rhonchi upper lobes, occasional expiratory wheezing. Slight decrease breathing sound in bases GASTROINTESTINAL: Abdomen slightly firm, voluntary guarding. Bowel sounds hypoactive 4. Tenderness to palpation to left upper quadrant, palpable spleen. MUSCULOSKELETAL: Extremities without clubbing, cyanosis, or edema. No edema noted. No calf tenderness. Negative Homans sign bilaterally. NEUROLOGICAL: Awake and alert. Cranial nerves II through XII intact. Motor and sensory grossly within normal limits. Five out of 5 muscle strength in all muscle groups. Normal speech. A/P Assessment and Plan (1) Injury of spleen with hematoma (2) Fall (3) Spleen hematoma (4) Shoulder pain, right (5) Anemia (6) Leukocytosis (7) Vertigo (8) Stress incontinence (9) Hypertension (10) GERD (gastroesophageal reflux disease) (11) Depression (12) Asthma Plan 76-year-old female status post fall, possibly secondary to vertigo and dehydration, was found with splenic hematoma underwent splenic artery embolization. Patient remains with considerable pain to left upper abdomen. -Trauma services following patient Continue to monitor H&H Continue with pain management, Tylenol, morphine IV, gabapentin Report of repeat CT of the abdomen and pelvis reviewed Leukocytosis, increased cough and wheezing, concern for possible infectious process -chest x-ray reviewed -UA has been reviewed Incentive spirometer, encourage Monitor CBC antibiotics initiated Right shoulder pain secondary to fall, x-rays show no injury occupational therapy Hypertension, blood pressures noted elevated likely secondary to pain Medications have been reviewed, initiated as indicated Stress incontinence, it is controlled Continue with her Myrbetriq Depression Resume home medications Asthma, noted with wheezing Continue with DuoNeb Vertigo with history of multiple falls, possibly positional vertigo. Has undergone evaluation with Dr. Witt as outpatient. Continue to monitor Consult physical therapy for evaluation GERD Continue Protonix 40 mg by mouth twice a day Physical therapy and occupational therapy have been ordered SCDs for DVT prophylaxis Protonix 40 mg by mouth twice a day for GI prophylax Case management has been consulted for CIR evaluation. Patient is deconditioned , has had multiple falls at home secondary to vertigo. During this hospitalization, patient has had very little mobility and has remained in considerable pain. Plan of care has been discussed with the patient and her , their questions have been answered in detail. Plan of care discussed with registered nurse. Further management of the patient will be dependent on the hospital course Plan for labs tomorrow Christine Gumzan MD Sep 24, 2016 10:29
[2016-09-24 11:08] LABS: HEMATOCRIT 33.8 % (35.0-46.0); MEAN CELL VOLUME 92.8 FL (80.0-100.0); MEAN CORPUSCULAR HEMOGLOBIN 31.2 PG (27.0-34.0); MEAN CORPUSCULAR HGB CONC 33.6 % (32.0-36.0); PLATELET COUNT 271 TH/MM3 (150-450); RED BLOOD COUNT 3.64 MIL/MM3 (4.00-5.30); RED CELL DISTRIBUTION WIDTH 19.1 % (11.6-17.2); REVIEW FLAG FINAL; WHITE BLOOD COUNT 21.8 TH/MM3 (4.0-11.0)
[2016-09-24 11:50] LABS: BICARBONATE 31.9 MEQ/L (21.0-32.0); POTASSIUM 3.5 MEQ/L (3.5-5.1)
[2016-09-24] MEDS: guaiFENesin E.R. 600 MG TAB PO SCH ×2 (15:39→21:08)
[2016-09-24] MEDS: DOCUSATE SODIUM 50 MG/SENNA 8.6 MG TAB PO SCH ×2 (15:40→21:08)
[2016-09-24] MEDS: BENZONATATE 100 MG CAP PO PRN ×2 (15:40→21:06)
--- NOTE | 2016-09-24 17:13 | HHI.PR ---
Subjective Subjective Notes Patient became obtunded last night and required Narcan. Morphine BULB GRADER discontinued Lethargic, arousable to voice Poor coughing effort Objective Vitals/I&O Vital Signs Date Time Temp Pulse Resp B/P Pulse Ox O2 Delivery O2 Flow Rate FiO2 09/24/16 16:45 99 Nasal Cannula 2.00 09/24/16 16:00 97.8 102 18 129/78 Labs Laboratory Tests Test 09/24/16 09/24/16 06:17 10:55 Sodium Level 139 139 Potassium Level 4.2 3.5 Chloride Level 103 100 Carbon Dioxide Level 23.7 31.9 Anion Gap 12 7 Blood Urea Nitrogen 14 15 Creatinine 0.80 0.85 Estimat Glomerular Filtration 70 65 Rate Random Glucose 81 88 Calcium Level 8.4 8.4 Total Bilirubin 1.3 Direct Bilirubin 0.5 Indirect Bilirubin 0.8 Aspartate Amino Transf 43 (AST/SGOT) Alanine Aminotransferase 24 (ALT/SGPT) Alkaline Phosphatase 76 Total Protein 5.4 Albumin 2.3 White Blood Count 21.8 Red Blood Count 3.64 Hemoglobin 11.4 Hematocrit 33.8 Mean Corpuscular Volume 92.8 Mean Corpuscular Hemoglobin 31.2 Mean Corpuscular Hemoglobin 33.6 Concent Red Cell Distribution Width 19.1 Platelet Count 271 Mean Platelet Volume 8.0 Radiology Last Impressions Head CT 09/19/16 140 Signed Impressions: Service Date/Time: Monday, September 19, 2016 17:52 - CONCLUSION: Slight scalp swelling without any significant hemorrhage or mass effect. Jason Roach MD Chest X-Ray 09/19/16 140 Signed Impressions: Service Date/Time: Monday, September 19, 2016 14:38 - CONCLUSION: No acute disease. Beltran Deleon MD FACR Cervical Spine CT 09/19/16 1402 Signed Impressions: Service Date/Time: Monday, September 19, 2016 17:57 - CONCLUSION: Neural foramina compromise at C3-4 without any significant thecal sac stenosis. Jason Roach MD Shoulder X-Ray 09/19/16 0000 Signed Impressions: Service Date/Time: Monday, September 19, 2016 14:40 - CONCLUSION: Normal examination for a patient of this age. Beltran Deleon MD FACR Chest CT 09/19/16 0000 Signed Impressions: Service Date/Time: Monday, September 19, 2016 17:57 - CONCLUSION: Tiny pericardial effusion and slight bibasilar atelectasis. Jason Roach MD Abdomen/Pelvis CT 09/19/16 0000 Signed Impressions: Service Date/Time: Monday, September 19, 2016 17:57 - CONCLUSION: 1. Enlarged spleen without definite evidence for laceration, however intrasplenic hematoma and/or parenchymal swelling is suspected. 2. Slight fluid in the perihepatic space. Jason Roach MD Narrative Exam GENERAL: 76-year-old elderly female lying in bed. SKIN: Warm and dry. ENT: No nasal bleeding or discharge. Mucous membranes pink and moist. NECK: Trachea midline. No JVD. CARDIOVASCULAR: Regular rate and rhythm. RESPIRATORY: Rhonchi auscultated bilateral upper lobes, diminished in bases. Breath sounds equal bilaterally. GASTROINTESTINAL: Abdomen firm, non-tender, nondistended. Hypoactive BS. MUSCULOSKELETAL: Extremities without cyanosis, or edema. No obvious deformities. NEUROLOGICAL: Lethargic arousable to voice. Normal speech. A/P Problem List: (1) Spleen hematoma (2) Shoulder pain, right (3) Fall Assessment and Plan INJURIES: LEFT eyebrow lac C3-C4 neural foramina compromise Slight pericardial effusion Inferior splenic lac PMHx: Vertigo /: IR splenic embolization Diet: Regular, poor appetite. Added Enlive TID. Pulm: IS. nebs. Added Mucinex and Acapella today. Encourage patient use to prevent pneumonia. Pain: Tylenol, Neurontin. Discontinue morphine BULB GRADER, Xanax and breakthrough IV morphine due to increased sedation. Patient with allergy to codeine. Added Morphine SR. Activity: OOB. PT evaluated. PT reordered, no note since 09/20. GI: Protonix Bowel: Carmelita-colace. MOM. BM 09/23. Nursing documented patient has been having regular bowel movements although patient denies. DVT: SCD's AM labs and CXR. Spleenectomy vaccines reordered and patient encouraged to receive d/t high risk of infection. Pain medication adjusted due to lethargy and requirement of Narcan last night. Patient's spouse at bedside and instructed to encourage patient to get OOB and and do periodic coughing and deep breathing. Plan of care discussed with patient, spouse and RN at bedside. Case management consulted to assist with discharge planning. Patient will need inpatient rehabilitation versus SNF. The exam, history, and the medical decision-making described in the above note were completed with the assistance of the mid-level provider. I reviewed and agree with the findings presented. I attest that I had a [id number] encounter with the patient on the same day, and personally performed and documented my assessment and findings in the medical record. Problem Qualifiers (1) Spleen hematoma: Qualified Code: S36.029A - Spleen hematoma, initial encounter (2) Shoulder pain, right: Qualified Code: M25.511 - Acute pain of right shoulder (3) Fall: Qualified Code: W19.XXXA - Fall, initial encounter Markel Chairez Sep 24, 2016 17:13 Tristan Lynn MD Sep 27, 2016 14:35
[2016-09-24] MEDS ORDERED: MORPHINE SULFATE 4 MG/ML INJ IV PUSH PRN (17:45)
--- NOTE | 2016-09-24 17:53 | PD.CONS ---
HPI Date Seen: Sep 24, 2016 Time Seen: 17:48 Travel History International Travel<30 Days: No Contact w/Intl Traveler<30Days: No Known Affected Area: No History of Present Illness HPI was sleeping soundly at breakfast and lunch. MH TEACHER discontinued along with any IV narcotic due to being obtunded when rounded upon by surgeon and THROUGH FREIGHT ENGINEER. Now with post ablation syndrome pain. Allergies-Medications (Allergen,Severity, Reaction): Coded Allergies: Cephalosporins (Verified Allergy, Severe, 03/22/14) ANAPHYLACTIC REACTION Codeine (Verified Allergy, Severe, Rash, 03/22/14) Dilaudid (Unverified Allergy, Severe, 03/22/14) Hydrocodone (Verified Allergy, Severe, 03/22/14) ANAPHYLACTIC REACTION Meperidine (Verified Allergy, Severe, HALLUCINATION, 03/22/14) Penicillin (Verified Allergy, Severe, 03/22/14) HIVES Percocet (Verified Allergy, Severe, 03/22/14) PATIENT STATED COULD NOT TAKE IN PACU 12/03/11 Sulfa (Verified Allergy, Severe, 03/22/14) NAUSEA Home Meds Reported Medications Alprazolam (Xanax)1 Mg Tab1 Mg PO TID PRN (ANXIETY) Ref 0 09/23/16 Lactobacillus Casei-Folic Acid (Restora Rx)60-1.25 Mg Cap Daily 09/23/16 Paroxetine 20 Mg Tab20 Mg PO DAILY #30 TAB Ref 0 09/23/16 Bupropion HCl ER 24 HR 300 Mg [id number] Mg PO DAILY Ref 0 09/23/16 Allopurinol 300 Mg Vev641 Mg PO DAILY #30 TAB Ref 0 09/23/16 Sulfamethoxazole-Trimethoprim 800-160 Mg Tab1 Tab PO BID Ref 0 09/23/16 Pantoprazole 40 Mg Tab40 Mg PO BID #30 TAB Ref 0 09/23/16 Hydrochlorothiazide 25 Mg Tab25 Mg PO DAILY #30 TAB Ref 0 09/23/16 Carvedilol 3.125 Mg Tab3.125 Mg PO BID #60 TAB Ref 0 09/23/16 Simvastatin 40 Mg Tab40 Mg PO DAILY #30 TAB Ref 0 09/23/16 Mirabegron (Myrbetriq)50 Mg Tab50 Mg PO DAILY #30 TAB Ref 0 09/22/16 Gabapentin 600 Mg Exc960 Mg PO HS Ref 0 09/21/16 Gabapentin 300 Mg [id number] Mg PO DAILY Ref 0 09/21/16 Discontinued Scripts Lisinopril 40 mg (Prinivil 40 mg)40 Mg Tab40 Mg PO DAILY #30 TAB Ref 1 Prov:Fred Lennon MD 02/06/14 DULOXETINE HCl (Cymbalta)60 Mg Cap60 Mg PO DAILY #30 CAP Ref 1 Prov:Fred Lennon MD 02/06/14 Zolpidem Tartrate (Ambien 10 Mg Tab)10 Mg Tab10 Mg PO HS PRN (INSOMNIA) #30 Ref 0 Prov:Fred Lennon MD 02/06/14 Metoprolol Succinate (Toprol Xl)50 Mg Tabcr50 Mg PO BID #60 TAB Ref 1 Prov:Fred Lennon MD 02/06/14 Commode 3:1 #1 Ea Prov:Joanne Gaston 02/02/14 Wheelchair Rental Ra #1 Ea Prov:Joanne GastonP 02/02/14 Walker Rolling #1 Ea Prov:Joanne GastonP 02/02/14 Physical Exam Narrative exquisite pain in LUQ Splenic size unchanged NABS EXTREMITIES: No cyanosis or edema. BACK: Nontender without obvious deformity. No CVA tenderness. NEUROLOGICAL: Awake and alert. Motor and sensory grossly within normal limits. Five out of 5 muscle strength in all muscle groups. Normal speech. Data Data Orders Guaifen-Cod 200-20 Mg/10ml Liq (Robituss (09/23/16 18:15) Chest, Single Ap (09/24/16 ) Morphine Inj (Morphine Inj) (09/24/16 05:15) Naloxone Inj (Narcan Inj) (09/24/16 06:25) Basic Metabolic Panel (Bmp) (09/24/16 10:25) Cbc No Diff, Includes Plts (09/24/16 10:25) Resp Acapella/Pep/Chest Vibra (09/24/16 ) Basic Metabolic Panel (Bmp) (09/25/16 06:00) Cbc No Diff, Includes Plts (09/25/16 06:00) Albuterol-Ipratropium Neb (Duoneb Neb) (09/24/16 12:00) Levofloxacin 500 Mg Premix Inj (Levaquin (09/24/16 17:00) Morphine Sr (Oramorph Sr) (09/24/16 21:00) Pneumococcal-23 Polyvalent Inj (Pneumova (09/24/16 14:00) Haemoph B Polysac Conj Vac Inj (Acthib I (09/24/16 14:00) Meningococcal Conj Vaccine Inj (Menactra (09/24/16 14:00) ^ Other Nursing Orders (09/24/16 12:55) Guaifenesin Er (Mucinex Er) (09/24/16 14:00) Docusate Sodium-Senna (Carmelita-Colace) (09/24/16 13:15) Diet Regular Basic (09/24/16 Dinner) Consult Pt Eval & Treat (09/24/16 17:04) Chest, Single Ap (09/25/16 06:00) Ketorolac Inj (Toradol Inj) (09/24/16 17:45) Morphine Inj (Morphine Inj) (09/24/16 17:45) Labs Laboratory Tests Test 09/24/16 09/24/16 06:17 10:55 Sodium Level 139 139 Potassium Level 4.2 3.5 Chloride Level 103 100 Carbon Dioxide Level 23.7 31.9 Anion Gap 12 7 Blood Urea Nitrogen 14 15 Creatinine 0.80 0.85 Estimat Glomerular Filtration 70 65 Rate Random Glucose 81 88 Calcium Level 8.4 8.4 Total Bilirubin 1.3 Direct Bilirubin 0.5 Indirect Bilirubin 0.8 Aspartate Amino Transf 43 (AST/SGOT) Alanine Aminotransferase 24 (ALT/SGPT) Alkaline Phosphatase 76 Total Protein 5.4 Albumin 2.3 White Blood Count 21.8 Red Blood Count 3.64 Hemoglobin 11.4 Hematocrit 33.8 Mean Corpuscular Volume 92.8 Mean Corpuscular Hemoglobin 31.2 Mean Corpuscular Hemoglobin 33.6 Concent Red Cell Distribution Width 19.1 Platelet Count 271 Mean Platelet Volume 8.0 MDM Interpretation(s) I do not want to confuse nurses with changing care plan but post ablation pain severe with sweating. WBCs up likely due to this. Not an obvious infection Hx of urosepsis and gout in past. chronic severe urgency and urine loss and a vestibular disorder with frequent falls. Will try toradol (creatinine better) and if no help than IV morphine intermittently with frequent assessment. pulse ox Admitting diagnosis: splenic hematoma, fall, right shoulder pain Condition: Stable Jazmine Chacko MD Sep 24, 2016 17:53
[2016-09-24] MEDS: LEVOFLOXACIN 500 MG PREMIX INJ 100 ML IV SCH (18:18)
[2016-09-24] MEDS: KETOROLAC TROMETHAMINE 30 MG/ML (IVP) VIAL IV PUSH PRN (18:19)
[2016-09-24] MEDS ORDERED: HYOSCYAMINE 0.125 MG TAB PO PRN (18:30)
[2016-09-24] MEDS: MAGNESIUM HYDROXIDE SUSP 30 ML CUP PO SCH (21:00)
[2016-09-24] MEDS: MORPHINE SULFATE 15 MG CONTROLLED RELEASE TAB PO SCH (21:08)
[2016-09-25] VITALS (7 sets, daily range): BP systolic 99–105; BP diastolic 66–75; PULSE 85–98; RESP 18–20; TEMP 96.2–98.6; O2SAT 94–96
[2016-09-25] MEDS: RESP: ALBUTEROL 2.5 MG/IPRATROPIUM 0.5 MG NEB (SCH) NEB ×6 (03:35→20:47)
[2016-09-25] MEDS: CHLORHEXIDINE GLUCONATE 2 % 1 PACK (2 CLOTHS) TOP SCH (04:00)
--- NOTE | 2016-09-25 04:06 | RADRPT ---
EXAM DATE/TIME: 09/25/2016 03:43 [facility] COMPARISON: CHEST SINGLE AP, September 24, 2016, 7:40. INDICATIONS : Cough, shortness of breath, chest congestion MEDICAL HISTORY : Cardiovascular disease. Hypertension. Tongue cancer. SURGICAL HISTORY : Hernia repair, Cholecystectomy, Colostomy, Hysterectomy. ENCOUNTER: Subsequent ACUITY: 1 week PAIN SCORE: 0/10 LOCATION: Bilateral chest FINDINGS: Small effusions are suspected and basilar left lower lobe airspace disease. Cardiomegaly and aortic c alcification. Degenerative changes of the spine. CONCLUSION: No significant change has occurred. Shaheed Martinez MD on September 25, 2016 at 4:05 Board Certified Radiologist. This report was verified electronically.
[2016-09-25] MEDS: KETOROLAC TROMETHAMINE 30 MG/ML (IVP) VIAL IV PUSH PRN (04:20)
[2016-09-25 05:03] LABS: MEAN CELL VOLUME 93.2 FL (80.0-100.0); MEAN CORPUSCULAR HEMOGLOBIN 30.7 PG (27.0-34.0); PLATELET COUNT 295 TH/MM3 (150-450); RED BLOOD COUNT 3.54 MIL/MM3 (4.00-5.30); RED CELL DISTRIBUTION WIDTH 18.3 % (11.6-17.2); REVIEW FLAG FINAL; WHITE BLOOD COUNT 16.9 TH/MM3 (4.0-11.0)
[2016-09-25 05:29] LABS: BICARBONATE 31.3 MEQ/L (21.0-32.0); POTASSIUM 3.2 MEQ/L (3.5-5.1)
[2016-09-25] MEDS ORDERED: POTASSIUM CHLORIDE 10 MEQ CONTROLLED RELEASE TAB PO ONE (08:15)
[2016-09-25] MEDS: HYDROCHLOROTHIAZIDE 25 MG TAB PO SCH ×2 (09:00→09:49)
[2016-09-25] MEDS: DOCUSATE SODIUM 50 MG/SENNA 8.6 MG TAB PO SCH ×2 (09:49→21:00)
[2016-09-25] MEDS: BACITRACIN TOP OINT 15 GM TUBE TOP SCH ×2 (09:49→21:36)
[2016-09-25] MEDS: CARVEDILOL 3.125 MG TAB PO SCH ×2 (09:49→21:35)
[2016-09-25] MEDS: PARoxetine HCL 20 MG TAB PO SCH (09:49)
[2016-09-25] MEDS: buPROPion HCL 150 MG SUSTAINED RELEASE TAB PO SCH ×2 (09:49→21:35)
[2016-09-25] MEDS: ALLOPURINOL 300 MG TAB PO SCH (09:49)
[2016-09-25] MEDS: GABAPENTIN 300 MG CAP PO SCH ×2 (09:49→21:35)
[2016-09-25] MEDS: guaiFENesin E.R. 600 MG TAB PO SCH ×2 (09:49→21:34)
[2016-09-25] MEDS: PANTOPRAZOLE SOD 40 MG DELAYED RELEASE TAB PO SCH ×2 (09:49→21:35)
[2016-09-25] MEDS: MORPHINE SULFATE 15 MG CONTROLLED RELEASE TAB PO SCH ×2 (09:50→21:34)
--- NOTE | 2016-09-25 10:55 | HHI.PR ---
Subjective Remarks Patient sitting on a recliner Patient has pain only on coughing and certain movements She can take some deep breathing She has some cough No chest pain Is still some upper abdominal pain left-sided No other complaint review of systems a 10 point system otherwise unremarkable Objective Objective Results - Vital Signs Date Time Temp Pulse Resp B/P Pulse Ox O2 Delivery O2 Flow Rate FiO2 09/25/16 08:00 96.2 85 18 104/67 95 09/25/16 07:41 96 Nasal Cannula 3.00 09/25/16 05:22 16 09/25/16 04:00 98.6 90 18 102/66 94 09/24/16 23:53 98.6 81 16 96/52 95 09/24/16 22:21 16 09/24/16 20:00 97.6 91 18 105/52 94 09/24/16 19:19 16 09/24/16 16:45 99 Nasal Cannula 2.00 09/24/16 16:00 97.8 102 18 129/78 88 09/24/16 12:00 99.1 94 20 128/69 94 I/O 09/24/16 09/24/16 09/24/16 09/25/16 09/25/16 09/25/16 07:00 15:00 23:00 07:00 15:00 23:00 Intake Total 120 ml 360 ml 240 ml 240 ml Output Total 500 ml 200 ml 300 ml Balance -380 ml 160 ml 240 ml -60 ml Intake Oral 120 ml 360 ml 240 ml 240 ml IV Total 0 ml Output Urine Total 500 ml 200 ml 300 ml # Voids 1 # Bowel Movements 0 0 0 0 Result Diagram: 09/25/16 0423 09/25/16 0423 Imaging Last Impressions Celiac/Hepatic Arteriogram 09/22/16 0000 Signed Impressions: Service Date/Time: Thursday, September 22, 2016 13:10 - CONCLUSION: 1. Uncomplicated Splenic artery embolization Chapincito Taylor MD Abdomen/Pelvis CT 09/21/16 0300 Signed Impressions: Service Date/Time: Wednesday, September 21, 2016 03:01 - CONCLUSION: 1. Inferior splenic laceration/contusion with moderate perisplenic hematoma and a small amount of blood products in the left retroperitoneum. It is difficult to determine if the perisplenic hematoma has changed in size. It is either stable to slightly increased in size compared to the prior study from 2 days ago. 2. Stable small amount of mildly dense right perihepatic free fluid. Given the density it is possible that this fluid is complicated by blood products. Gerardo Valiente MD Chest CT 09/21/16 0000 Signed Impressions: Service Date/Time: Wednesday, September 21, 2016 03:01 - CONCLUSION: 1. Trace bilateral pleural effusions with atelectasis in the lower lobes. There is wedge-shaped consolidation in the right upper lobe versus fluid in the superior aspect of the major fissure. 2. Coronary artery calcification. Gerardo Valiente MD Head CT 09/19/16 1402 Signed Impressions: Service Date/Time: Monday, September 19, 2016 17:52 - CONCLUSION: Slight scalp swelling without any significant hemorrhage or mass effect. Jason Roach MD Chest X-Ray 09/19/16 1402 Signed Impressions: Service Date/Time: Monday, September 19, 2016 14:38 - CONCLUSION: No acute disease. Beltran Deleon MD FACR Cervical Spine CT 09/19/16 1402 Signed Impressions: Service Date/Time: Monday, September 19, 2016 17:57 - CONCLUSION: Neural foramina compromise at C3-4 without any significant thecal sac stenosis. Jason Roach MD Shoulder X-Ray 09/19/16 0000 Signed Impressions: Service Date/Time: Monday, September 19, 2016 14:40 - CONCLUSION: Normal examination for a patient of this age. Beltran Deleon MD FACR Other Results Laboratory Tests Test 09/24/16 09/25/16 10:55 04:23 White Blood Count 21.8 16.9 Red Blood Count 3.64 3.54 Hemoglobin 11.4 10.9 Hematocrit 33.8 33.0 Mean Corpuscular Volume 92.8 93.2 Mean Corpuscular Hemoglobin 31.2 30.7 Mean Corpuscular Hemoglobin 33.6 33.0 Concent Red Cell Distribution Width 19.1 18.3 Platelet Count 271 295 Mean Platelet Volume 8.0 8.3 Sodium Level 139 138 Potassium Level 3.5 3.2 Chloride Level 100 100 Carbon Dioxide Level 31.9 31.3 Anion Gap 7 7 Blood Urea Nitrogen 15 22 Creatinine 0.85 0.91 Estimat Glomerular Filtration 65 60 Rate Random Glucose 88 90 Calcium Level 8.4 8.2 Physical Exam Physical Exam GENERAL: This is a well-nourished, well-developed patient, in no apparent distress. SKIN: Laceration noted to left eyebrow, suture. Bruising noted to left forearm , small skin tear noted. There is some bruising noted over right shoulder. HEAD: Atraumatic. Normocephalic. No temporal or scalp tenderness. EYES: Pupils equal round and reactive. Extraocular motions intact. No scleral icterus. No injection or drainage. ENT: Nose without bleeding, purulent drainage or septal hematoma. Airway patent. NECK: Trachea midline. No JVD or lymphadenopathy. Supple. CARDIOVASCULAR: Regular rate and rhythm without murmurs, gallops, or rubs. RESPIRATORY: Coarse rhonchi upper lobes, occasional expiratory wheezing. Slight decrease breathing sound in bases GASTROINTESTINAL: Abdomen soft and doughy in consistency, voluntary guarding. Bowel sounds hypoactive 4. Tenderness to palpation to left upper quadrant, palpable spleen. MUSCULOSKELETAL: Extremities without clubbing, cyanosis, or edema. No edema noted. No calf tenderness. Negative Homans sign bilaterally. NEUROLOGICAL: Awake and alert. Cranial nerves II through XII intact. Motor and sensory grossly within normal limits. Five out of 5 muscle strength in all muscle groups. Normal speech. A/P Assessment and Plan (1) Injury of spleen with hematoma (2) Fall (3) Spleen hematoma (4) Shoulder pain, right (5) Anemia (6) Leukocytosis (7) Vertigo (8) Stress incontinence (9) Hypertension (10) GERD (gastroesophageal reflux disease) (11) Depression (12) Asthma Plan 76-year-old female status post fall, possibly secondary to vertigo and dehydration, was found with splenic hematoma underwent splenic artery embolization. Patient remains with considerable pain to left upper abdomen. -Trauma services following patient Continue to monitor H&H Continue with pain management, Tylenol, morphine IV, gabapentin Report of repeat CT of the abdomen and pelvis reviewed Leukocytosis, increased cough and wheezing, concern for possible infectious process -chest x-ray reviewed -UA has been reviewed Incentive spirometer, encourage Monitor CBC antibiotics to continue Right shoulder pain secondary to fall, x-rays show no injury occupational therapy Hypertension, blood pressures noted elevated likely secondary to pain Medications have been reviewed, initiated as indicated Stress incontinence, it is controlled Continue with her Myrbetriq Depression Resume home medications Asthma, noted with wheezing Continue with DuoNeb Vertigo with history of multiple falls, possibly positional vertigo. Has undergone evaluation with Dr. Witt as outpatient. Continue to monitor Consult physical therapy for evaluation GERD Continue Protonix 40 mg by mouth twice a day Labs reviewed Improving WBC count Stable H&H Low potassium will replace X-ray chest report reviewed Physical therapy and occupational therapy to continue SCDs for DVT prophylaxis Protonix 40 mg by mouth twice a day for GI prophylax Case management has been consulted for CIR evaluation. Patient is deconditioned , has had multiple falls at home secondary to vertigo. During this hospitalization, patient has had very little mobility and has remained in considerable pain. Plan of care has been discussed with the patient and her , their questions have been answered at bedside. Plan of care discussed with registered nurse. Further management of the patient will be dependent on the hospital course Plan for labs tomorrow Christine Guzman MD Sep 25, 2016 10:55
[2016-09-25] MEDS ORDERED: POTASSIUM CHLORIDE 20 MEQ CONTROLLED RELEASE TAB PO ONE (12:00)
--- NOTE | 2016-09-25 13:02 | PD.CONS ---
HPI Date Seen: Sep 25, 2016 Time Seen: 12:59 Travel History International Travel<30 Days: No Contact w/Intl Traveler<30Days: No Known Affected Area: No History of Present Illness HPI Awake and alert this afternoon with better pain control. States she thinks she required no morphine and only needed IV toradol. Cough less pronounced and moving diaphragm better. less leakage with myrbetriq Allergies-Medications (Allergen,Severity, Reaction): Coded Allergies: Cephalosporins (Verified Allergy, Severe, 03/22/14) ANAPHYLACTIC REACTION Codeine (Verified Allergy, Severe, Rash, 03/22/14) Dilaudid (Unverified Allergy, Severe, 03/22/14) Hydrocodone (Verified Allergy, Severe, 03/22/14) ANAPHYLACTIC REACTION Meperidine (Verified Allergy, Severe, HALLUCINATION, 03/22/14) Penicillin (Verified Allergy, Severe, 03/22/14) HIVES Percocet (Verified Allergy, Severe, 03/22/14) PATIENT STATED COULD NOT TAKE IN PACU 12/03/11 Sulfa (Verified Allergy, Severe, 03/22/14) NAUSEA Home Meds Reported Medications Alprazolam (Xanax)1 Mg Tab1 Mg PO TID PRN (ANXIETY) Ref 0 09/23/16 Lactobacillus Casei-Folic Acid ([facility] Rx)60-1.25 Mg Cap Daily 09/23/16 Paroxetine 20 Mg Tab20 Mg PO DAILY #30 TAB Ref 0 09/23/16 Bupropion HCl ER 24 HR 300 Mg [id number] Mg PO DAILY Ref 0 09/23/16 Allopurinol 300 Mg [id number] Mg PO DAILY #30 TAB Ref 0 09/23/16 Sulfamethoxazole-Trimethoprim 800-160 Mg Tab1 Tab PO BID Ref 0 09/23/16 Pantoprazole 40 Mg Tab40 Mg PO BID #30 TAB Ref 0 09/23/16 Hydrochlorothiazide 25 Mg Tab25 Mg PO DAILY #30 TAB Ref 0 09/23/16 Carvedilol 3.125 Mg Tab3.125 Mg PO BID #60 TAB Ref 0 09/23/16 Simvastatin 40 Mg Tab40 Mg PO DAILY #30 TAB Ref 0 09/23/16 Mirabegron (Myrbetriq)50 Mg Tab50 Mg PO DAILY #30 TAB Ref 0 09/22/16 Gabapentin 600 Mg [id number] Mg PO HS Ref 0 09/21/16 Gabapentin 300 Mg [id number] Mg PO DAILY Ref 0 09/21/16 Discontinued Scripts Lisinopril 40 mg (Prinivil 40 mg)40 Mg Tab40 Mg PO DAILY #30 TAB Ref 1 Prov:Fred Lennon MD 02/06/14 DULOXETINE HCl (Cymbalta)60 Mg Cap60 Mg PO DAILY #30 CAP Ref 1 Prov:Fred Lennon MD 02/06/14 Zolpidem Tartrate (Ambien 10 Mg Tab)10 Mg Tab10 Mg PO HS PRN (INSOMNIA) #30 Ref 0 Prov:Fred Lennon MD 02/06/14 Metoprolol Succinate (Toprol Xl)50 Mg Tabcr50 Mg PO BID #60 TAB Ref 1 Prov:Fred Lennon MD 02/06/14 Commode 3:1 #1 Ea Prov:Joanne Gaston 02/02/14 Wheelchair Rental Ra #1 Ea Prov:Joanne GastonP 02/02/14 Walker Rolling #1 Ea Prov:Joanne GastonP 02/02/14 Physical Exam Narrative GENERAL: Well-nourished, well-developed patient. SKIN: Warm and dry. HEAD: Normocephalic and bruising is going down spleen less tender no splinting no CVAT EXTREMITIES: No cyanosis or edema. Bruises resolving. BACK: Nontender without obvious deformity. No CVA tenderness. NEUROLOGICAL: Awake and alert. Motor and sensory grossly within normal limits. . Normal speech. Data Data Orders Pneumococcal-23 Polyvalent Inj (Pneumova (09/24/16 14:00) Haemoph B Polysac Conj Vac Inj (Acthib I (09/24/16 14:00) Meningococcal Conj Vaccine Inj (Menactra (09/24/16 14:00) ^ Other Nursing Orders (09/24/16 12:55) Guaifenesin Er (Mucinex Er) (09/24/16 14:00) Docusate Sodium-Senna (Carmelita-Colace) (09/24/16 13:15) Diet Regular Basic (09/24/16 Dinner) Consult Pt Eval & Treat (09/24/16 17:04) Chest, Single Ap (09/25/16 06:00) Ketorolac Inj (Toradol Inj) (09/24/16 17:45) Morphine Inj (Morphine Inj) (09/24/16 17:45) Hyoscyamine (Levsin) (09/24/16 18:30) Potassium Chloride (Kcl) (09/25/16 08:15) Cbc No Diff, Includes Plts (09/26/16 06:00) Basic Metabolic Panel (Bmp) (09/26/16 06:00) Potassium Chloride (Kcl) (09/25/16 12:00) Labs Laboratory Tests Test 09/25/16 04:23 White Blood Count 16.9 Red Blood Count 3.54 Hemoglobin 10.9 Hematocrit 33.0 Mean Corpuscular Volume 93.2 Mean Corpuscular Hemoglobin 30.7 Mean Corpuscular Hemoglobin 33.0 Concent Red Cell Distribution Width 18.3 Platelet Count 295 Mean Platelet Volume 8.3 Sodium Level 138 Potassium Level 3.2 Chloride Level 100 Carbon Dioxide Level 31.3 Anion Gap 7 Blood Urea Nitrogen 22 Creatinine 0.91 Estimat Glomerular Filtration 60 Rate Random Glucose 90 Calcium Level 8.2 MDM Interpretation(s) looks like the worst of the post splenic ablation pain has resolved. Likely can move to [place] soon. Admitting diagnosis: splenic hematoma, fall, right shoulder pain Condition: Stable Jazmine Chacko MD Sep 25, 2016 13:02
--- NOTE | 2016-09-25 14:41 | HHI.PR ---
Subjective Subjective Notes More alert today. Complains of abdominal pain. Objective Vitals/I&O Vital Signs Date Time Temp Pulse Resp B/P Pulse Ox O2 Delivery O2 Flow Rate FiO2 09/25/16 12:00 97.2 95 18 99/69 96 09/25/16 07:41 Nasal Cannula 3.00 Labs Laboratory Tests Test 09/25/16 04:23 White Blood Count 16.9 Red Blood Count 3.54 Hemoglobin 10.9 Hematocrit 33.0 Mean Corpuscular Volume 93.2 Mean Corpuscular Hemoglobin 30.7 Mean Corpuscular Hemoglobin 33.0 Concent Red Cell Distribution Width 18.3 Platelet Count 295 Mean Platelet Volume 8.3 Sodium Level 138 Potassium Level 3.2 Chloride Level 100 Carbon Dioxide Level 31.3 Anion Gap 7 Blood Urea Nitrogen 22 Creatinine 0.91 Estimat Glomerular Filtration 60 Rate Random Glucose 90 Calcium Level 8.2 Radiology Last Impressions Head CT 09/19/16 1402 Signed Impressions: Service Date/Time: Monday, September 19, 2016 17:52 - CONCLUSION: Slight scalp swelling without any significant hemorrhage or mass effect. Jason Roach MD Chest X-Ray 09/19/16 1402 Signed Impressions: Service Date/Time: Monday, September 19, 2016 14:38 - CONCLUSION: No acute disease. Beltran Deleon MD FACR Cervical Spine CT 09/19/16 1402 Signed Impressions: Service Date/Time: Monday, September 19, 2016 17:57 - CONCLUSION: Neural foramina compromise at C3-4 without any significant thecal sac stenosis. Jason Roach MD Shoulder X-Ray 09/19/16 0000 Signed Impressions: Service Date/Time: Monday, September 19, 2016 14:40 - CONCLUSION: Normal examination for a patient of this age. Beltran Deleon MD FACR Chest CT 09/19/16 0000 Signed Impressions: Service Date/Time: Monday, September 19, 2016 17:57 - CONCLUSION: Tiny pericardial effusion and slight bibasilar atelectasis. Jason Roach MD Abdomen/Pelvis CT 09/19/16 0000 Signed Impressions: Service Date/Time: Monday, September 19, 2016 17:57 - CONCLUSION: 1. Enlarged spleen without definite evidence for laceration, however intrasplenic hematoma and/or parenchymal swelling is suspected. 2. Slight fluid in the perihepatic space. Jason Roach MD Narrative Exam GENERAL: 76-year-old elderly female OOB in chair. SKIN: Warm and dry. ENT: No nasal bleeding or discharge. Mucous membranes pink and moist. NECK: Trachea midline. No JVD. CARDIOVASCULAR: Regular rate and rhythm. RESPIRATORY: Lungs clear to auscultation and diminished in bases. Breath sounds equal bilaterally. GASTROINTESTINAL: Abdomen soft, tender to palpation on left, nondistended. Hypoactive BS. MUSCULOSKELETAL: Extremities without cyanosis, or edema. No obvious deformities. NEUROLOGICAL: Awake and alert. Normal speech. A/P Problem List: (1) Spleen hematoma (2) Shoulder pain, right (3) Fall Assessment and Plan INJURIES: LEFT eyebrow lac C3-C4 neural foramina compromise Slight pericardial effusion Inferior splenic lac PMHx: Vertigo 09/22: IR splenic embolization Diet: Regular with Enlive TID, poor appetite. Pulm: IS. nebs. Mucinex. Acapella. Encourage patient use. Pain: Tylenol, Neurontin. Morphine SR. Morphine IV for breakthrough was added back d/t intense pain. Activity: OOB. PT evaluating. Patient getting OOB to chair with assist. GI: Protonix Bowel: Carmelita-colace. MOM. LBM 09/23. DVT: SCD's AM labs and CXR. Remove left eyebrow sutures today. Plan of care discussed with patient and RN at bedside. Spouse sleeping at bedside. Case management consulted to assist with discharge planning. Patient will need inpatient rehabilitation versus SNF. Problem Qualifiers (1) Spleen hematoma: Qualified Code: S36.029A - Spleen hematoma, initial encounter (2) Shoulder pain, right: Qualified Code: M25.511 - Acute pain of right shoulder (3) Fall: Qualified Code: W19.XXXA - Fall, initial encounter Markel Chairez Sep 25, 2016 14:41 Markel Chairez Sep 25, 2016 14:41 Qualified Code: S36.029A - Spleen hematoma, initial encounter (2) Shoulder pain, right: Qualified Code: M25.511 - Acute pain of right shoulder (3) Fall: Qualified Code: W19.XXXA - Fall, initial encounter Markel Chairez Sep 25, 2016 14:41
[2016-09-25] MEDS: LEVOFLOXACIN 500 MG PREMIX INJ 100 ML IV SCH (17:38)
[2016-09-25] MEDS: MAGNESIUM HYDROXIDE SUSP 30 ML CUP PO SCH (21:00)
[2016-09-25] MEDS: BENZONATATE 100 MG CAP PO PRN (21:44)
[2016-09-26] VITALS (8 sets, daily range): BP systolic 100–124; BP diastolic 58–76; PULSE 85–94; RESP 18–20; TEMP 96.5–98; O2SAT 91–96
[2016-09-26] MEDS: RESP: ALBUTEROL 2.5 MG/IPRATROPIUM 0.5 MG NEB (SCH) NEB ×4 (00:57→11:14)
[2016-09-26] MEDS: CHLORHEXIDINE GLUCONATE 2 % 1 PACK (2 CLOTHS) TOP SCH (04:00)
[2016-09-26 05:27] LABS: HEMATOCRIT 31.4 % (35.0-46.0); MEAN CELL VOLUME 93.2 FL (80.0-100.0); MEAN CORPUSCULAR HEMOGLOBIN 31.1 PG (27.0-34.0); MEAN CORPUSCULAR HGB CONC 33.4 % (32.0-36.0); PLATELET COUNT 370 TH/MM3 (150-450); RED BLOOD COUNT 3.37 MIL/MM3 (4.00-5.30); RED CELL DISTRIBUTION WIDTH 18.4 % (11.6-17.2); REVIEW FLAG FINAL
[2016-09-26 05:47] LABS: BICARBONATE 30.4 MEQ/L (21.0-32.0); POTASSIUM 3.7 MEQ/L (3.5-5.1)
[2016-09-26] MEDS: PARoxetine HCL 20 MG TAB PO SCH (08:19)
[2016-09-26] MEDS: buPROPion HCL 150 MG SUSTAINED RELEASE TAB PO SCH (08:19)
[2016-09-26] MEDS: HYDROCHLOROTHIAZIDE 25 MG TAB PO SCH (08:19)
[2016-09-26] MEDS: GABAPENTIN 300 MG CAP PO SCH (08:20)
[2016-09-26] MEDS: PANTOPRAZOLE SOD 40 MG DELAYED RELEASE TAB PO SCH (08:20)
[2016-09-26] MEDS: guaiFENesin E.R. 600 MG TAB PO SCH (08:20)
[2016-09-26] MEDS: MORPHINE SULFATE 15 MG CONTROLLED RELEASE TAB PO SCH (08:20)
[2016-09-26] MEDS: CARVEDILOL 3.125 MG TAB PO SCH (08:20)
[2016-09-26] MEDS: DOCUSATE SODIUM 50 MG/SENNA 8.6 MG TAB PO SCH ×2 (08:20→08:25)
[2016-09-26] MEDS: ALLOPURINOL 300 MG TAB PO SCH (08:20)
[2016-09-26] MEDS: BACITRACIN TOP OINT 15 GM TUBE TOP SCH (08:24)
--- NOTE | 2016-09-26 12:16 | HHI.PR ---
Subjective Remarks Patient sitting on a recliner being much better than yesterday requiring less pain medication Patient has pain only on coughing and certain movements She can take some deep breathing She has some cough No chest pain No other complaint review of systems a 10 point system otherwise unremarkable Objective Objective Results - Vital Signs Date Time Temp Pulse Resp B/P Pulse Ox O2 Delivery O2 Flow Rate FiO2 09/26/16 09:20 18 09/26/16 08:00 96.5 94 20 124/76 95 09/26/16 07:59 95 Nasal Cannula 2.00 09/26/16 04:00 98.0 88 18 106/62 95 09/26/16 03:59 96 Nasal Cannula 2.00 09/26/16 00:59 91 Nasal Cannula 2.00 09/26/16 00:00 98.0 88 18 106/62 95 09/26/16 00:00 97.2 90 20 100/58 94 09/25/16 20:50 94 Nasal Cannula 2.00 09/25/16 20:00 96.8 94 20 102/68 96 09/25/16 16:00 96.3 98 18 105/75 95 I/O 09/25/16 09/25/16 09/25/16 09/26/16 09/26/16 09/26/16 07:00 15:00 23:00 07:00 15:00 23:00 Intake Total 240 ml 1060 ml 360 ml 220 ml Output Total 300 ml 475 ml 400 ml 350 ml Balance -60 ml 585 ml -40 ml -130 ml Intake Oral 240 ml 1060 ml 360 ml 220 ml IV Total 0 ml Output Urine Total 300 ml 475 ml 400 ml 350 ml # Bowel Movements 0 1 0 0 Result Diagram: 09/26/16 0504 09/26/16 0504 Imaging Last Impressions Celiac/Hepatic Arteriogram 09/22/16 0000 Signed Impressions: Service Date/Time: Thursday, September 22, 2016 13:10 - CONCLUSION: 1. Uncomplicated Splenic artery embolization Chapincito Taylor MD Abdomen/Pelvis CT 09/21/16 0300 Signed Impressions: Service Date/Time: Wednesday, September 21, 2016 03:01 - CONCLUSION: 1. Inferior splenic laceration/contusion with moderate perisplenic hematoma and a small amount of blood products in the left retroperitoneum. It is difficult to determine if the perisplenic hematoma has changed in size. It is either stable to slightly increased in size compared to the prior study from 2 days ago. 2. Stable small amount of mildly dense right perihepatic free fluid. Given the density it is possible that this fluid is complicated by blood products. Gerardo Valiente MD Chest CT 09/21/16 0000 Signed Impressions: Service Date/Time: Wednesday, September 21, 2016 03:01 - CONCLUSION: 1. Trace bilateral pleural effusions with atelectasis in the lower lobes. There is wedge-shaped consolidation in the right upper lobe versus fluid in the superior aspect of the major fissure. 2. Coronary artery calcification. Gerardo Valiente MD Head CT 09/19/16 1402 Signed Impressions: Service Date/Time: Monday, September 19, 2016 17:52 - CONCLUSION: Slight scalp swelling without any significant hemorrhage or mass effect. Jason Roach MD Chest X-Ray 09/19/16 1402 Signed Impressions: Service Date/Time: Monday, September 19, 2016 14:38 - CONCLUSION: No acute disease. Beltran Deleon MD FACR Cervical Spine CT 09/19/16 1402 Signed Impressions: Service Date/Time: Monday, September 19, 2016 17:57 - CONCLUSION: Neural foramina compromise at C3-4 without any significant thecal sac stenosis. Jason Roach MD Shoulder X-Ray 09/19/16 0000 Signed Impressions: Service Date/Time: Monday, September 19, 2016 14:40 - CONCLUSION: Normal examination for a patient of this age. Beltran Deleon MD FACR Other Results Laboratory Tests Test 09/26/16 05:04 White Blood Count 17.0 Red Blood Count 3.37 Hemoglobin 10.5 Hematocrit 31.4 Mean Corpuscular Volume 93.2 Mean Corpuscular Hemoglobin 31.1 Mean Corpuscular Hemoglobin 33.4 Concent Red Cell Distribution Width 18.4 Platelet Count 370 Mean Platelet Volume 8.0 Sodium Level 140 Potassium Level 3.7 Chloride Level 102 Carbon Dioxide Level 30.4 Anion Gap 8 Blood Urea Nitrogen 25 Creatinine 0.87 Estimat Glomerular Filtration 64 Rate Random Glucose 86 Calcium Level 8.5 Physical Exam Physical Exam GENERAL: This is a well-nourished, well-developed patient, in no apparent distress. SKIN: Laceration noted to left eyebrow, suture removed. Bruising noted to left forearm, small skin tear noted. There is some bruising noted over right shoulder. HEAD: Atraumatic. Normocephalic. No temporal or scalp tenderness. EYES: Pupils equal round and reactive. Extraocular motions intact. No scleral icterus. No injection or drainage. ENT: Nose without bleeding, purulent drainage or septal hematoma. Airway patent. NECK: Trachea midline. No JVD or lymphadenopathy. Supple. CARDIOVASCULAR: Regular rate and rhythm without murmurs, gallops, or rubs. RESPIRATORY: Some decrease air entry bibasally. No wheezing or crackles cannot GASTROINTESTINAL: Abdomen soft and doughy in consistency, voluntary guarding. Bowel sounds hypoactive 4. Tenderness to palpation to left upper quadrant. MUSCULOSKELETAL: Extremities without clubbing, cyanosis, or edema. No edema noted. No calf tenderness. Negative Homans sign bilaterally. NEUROLOGICAL: Awake and alert. Cranial nerves II through XII intact. Motor and sensory grossly within normal limits. Five out of 5 muscle strength in all muscle groups. Normal speech. A/P Assessment and Plan (1) Injury of spleen with hematoma (2) Fall (3) Spleen hematoma (4) Shoulder pain, right (5) Anemia (6) Leukocytosis (7) Vertigo (8) Stress incontinence (9) Hypertension (10) GERD (gastroesophageal reflux disease) (11) Depression (12) Asthma Plan 76-year-old female status post fall, possibly secondary to vertigo and dehydration, was found with splenic hematoma underwent splenic artery embolization. Patient remains with considerable pain to left upper abdomen. -Trauma services following patient Continue to monitor H&H Continue with pain management, Tylenol, morphine IV, gabapentin Report of repeat CT of the abdomen and pelvis reviewed . Pain is significantly improved the patient is mobile with a walker and assistance Leukocytosis, increased cough and wheezing, concern for possible infectious process -chest x-ray reviewed -UA has been reviewed Incentive spirometer, encourage Monitor CBC antibiotics to continue change to by mouth Right shoulder pain secondary to fall, x-rays show no injury occupational therapy Hypertension, blood pressures noted elevated likely secondary to pain Medications have been reviewed, initiated as indicated Stress incontinence, it is controlled Continue with her Myrbetriq Depression Resume home medications Asthma, noted with wheezing Continue with DuoNeb Vertigo with history of multiple falls, possibly positional vertigo. Has undergone evaluation with Dr. Witt as outpatient. 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 Patient is deconditioned, has had multiple falls at home secondary to vertigo. During this hospitalization, patient has had very little mobility and has remained in considerable pain. Plan of care has been discussed with the patient and her , their questions have been answered at bedside. Plan of care discussed with registered nurse. DC to CIR to Christine Guzman MD Sep 26, 2016 12:16
[2016-09-26] MEDS ORDERED: DOCU1CAP39 PO (12:29)
[2016-09-26] MEDS ORDERED: AMBI10TA PO (12:29)
[2016-09-26] MEDS ORDERED: IPRASOL NEB (12:29)
[2016-09-26] MEDS ORDERED: BENZ100 PO (12:29)
[2016-09-26] MEDS ORDERED: MORP1TAB24 PO (12:29)
[2016-09-26] MEDS ORDERED: BACI500O2 TOP (12:29)
[2016-09-26] MEDS ORDERED: LEVA500T PO (12:29)
--- NOTE | 2016-09-26 14:31 | HHI.DS ---
Discharge Summary Admission Date Sep 19, 2016 at 18:57 Discharge Date: Sep 26, 2016 Admitting Diagnosis splenic hematoma, fall, right shoulder pain (1) Spleen hematoma (2) Shoulder pain, right (3) Fall Brief History S/P Trauma: Fall. CBC/BMP: 09/26/16 0504 09/26/16 0504 Significant Findings Laboratory Tests Test 09/24/16 09/24/16 09/25/16 09/26/16 06:17 10:55 04:23 05:04 Estimat Glomerular Filtration 70 ML/MIN (>89) 65 ML/MIN (>89) 60 ML/MIN (>89) 64 ML/MIN (>89) Rate Calcium Level 8.4 MG/DL 8.4 MG/DL 8.2 MG/DL (8.5-10.1) (8.5-10.1) (8.5-10.1) Total Bilirubin 1.3 MG/DL (0.2-1.0) Direct Bilirubin 0.5 MG/DL (0.0-0.2) Aspartate Amino Transf 43 U/L (15-37) (AST/SGOT) Total Protein 5.4 GM/DL (6.4-8.2) Albumin 2.3 GM/DL (3.4-5.0) White Blood Count 21.8 TH/MM3 16.9 TH/MM3 17.0 TH/MM3 (4.0-11.0) (4.0-11.0) (4.0-11.0) Red Blood Count 3.64 MIL/MM3 3.54 MIL/MM3 3.37 MIL/MM3 (4.00-5.30) (4.00-5.30) (4.00-5.30) Hemoglobin 11.4 GM/DL 10.9 GM/DL 10.5 GM/DL (11.6-15.3) (11.6-15.3) (11.6-15.3) Hematocrit 33.8 % 33.0 % 31.4 % (35.0-46.0) (35.0-46.0) (35.0-46.0) Red Cell Distribution Width 19.1 % 18.3 % 18.4 % (11.6-17.2) (11.6-17.2) (11.6-17.2) Potassium Level 3.2 MEQ/L (3.5-5.1) Blood Urea Nitrogen 22 MG/DL (7-18) 25 MG/DL (7-18) Imaging Last Impressions Chest X-Ray 09/25/16 0600 Signed Impressions: Service Date/Time: September 03:43 - CONCLUSION: No significant change has occurred. Shahede Martinez MD Abdomen/Pelvis CT 09/23/16 0000 Signed Impressions: Service Date/Time: Friday, September 23, 2016 13:55 - CONCLUSION: 1. CT findings characteristic of the interval graded splenic embolization. There is still preservation of the splenic blood flow near the hilum. 2. High density perisplenic fluid is characteristic of a perisplenic hemorrhage which is unchanged from prior. 3. Peritoneal ascites may be slightly more prominent when compared to prior. 4. Findings the prior bowel surgery with colonic resection. 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 5. 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 6. Slight increase in bilateral pleural effusions with concomitant atelectatic changes in the bases. Effusions are still small, however there Eduar Capps MD Celiac/Hepatic Arteriogram 09/22/16 0000 Signed Impressions: Service Date/Time: Thursday, September 22, 2016 13:10 - CONCLUSION: 1. Uncomplicated Splenic artery embolization Chapincito Taylor MD Chest CT 09/21/16 0000 Signed Impressions: Service Date/Time: Wednesday, September 21, 2016 03:01 - CONCLUSION: 1. Trace bilateral pleural effusions with atelectasis in the lower lobes. There is wedge-shaped consolidation in the right upper lobe versus fluid in the superior aspect of the major fissure. 2. Coronary artery calcification. Gerardo Valiente MD Head CT 09/19/16 1402 Signed Impressions: Service Date/Time: Monday, September 19, 2016 17:52 - CONCLUSION: Slight scalp swelling without any significant hemorrhage or mass effect. Jason Roach MD Cervical Spine CT 09/19/16 1402 Signed Impressions: Service Date/Time: Monday, September 19, 2016 17:57 - CONCLUSION: Neural foramina compromise at C3-4 without any significant thecal sac stenosis. K. Pascual Roach MD Shoulder X-Ray 09/19/16 0000 Signed Impressions: Service Date/Time: Monday, September 19, 2016 14:40 - CONCLUSION: Normal examination for a patient of this age. Beltran Deleon MD FACR PE at Discharge GENERAL: 76-year-old elderly female OOB in chair. SKIN: Warm and dry. ENT: No nasal bleeding or discharge. Mucous membranes pink and moist. NECK: Trachea midline. No JVD. CARDIOVASCULAR: Regular rate and rhythm. RESPIRATORY: Lungs clear to auscultation and diminished in bases. Breath sounds equal bilaterally. GASTROINTESTINAL: Abdomen soft, tender to palpation on left, nondistended. Hypoactive BS. MUSCULOSKELETAL: Extremities without cyanosis, or edema. No obvious deformities. NEUROLOGICAL: Awake and alert. Normal speech. Hospital Course [place] [place]: Found face down by . (She has fallen at least 7 times in the past week. - vertigo) Brief LOC. INJURIES: LEFT eyebrow lac C3-C4 neural foramina compromise Slight pericardial effusion Inferior splenic lac PMHx: Vertigo 09/22: IR splenic embolization Diet: Regular, tolerating. Pulm: IS. nebs. Mucinex. Acapella. Pain: Tylenol, Morphine SR. IV Toradol, Neurontin. Pain controlled. Activity: OOB PT evaluating. Tolerating OOB to chair well. GI: Protonix Bowel: Carmelita-colace. MOM. BM 09/26 DVT: SCDs Plan of care discussed patient at bedside. not present during visit. Patient is clear from trauma surgery standpoint to safely discharged to [facility]. Follow-up with PCP as outpatient. Pt Condition on Discharge: Fair Discharge Disposition: Rehab Inpatient Discharge Instructions DIET: Follow Instructions for: Heart Healthy Diet Activities you can perform: Weight Bearing as Markel Tobias Sep 26, 2016 14:30
[2016-10-06] MEDS ORDERED: WHEEMIS3 (10:07)
[2016-10-07] MEDS ORDERED: MIRA50TA PO (08:30)
[2016-10-07] MEDS ORDERED: SIMV40TA PO (08:30)
[2016-10-07] MEDS ORDERED: METO10TA PO (08:30)
[2016-10-07] MEDS ORDERED: PANT40TA3 PO (08:30)
[2016-10-07] MEDS ORDERED: BENZ100 PO (08:30)
[2016-10-07] MEDS ORDERED: NEUR300C PO (08:30)
[2016-10-07] MEDS ORDERED: BUPR300T PO (08:30)
[2016-10-07] MEDS ORDERED: DIPH25CA PO (08:30)
[2016-10-07] MEDS ORDERED: PARO20TA2 PO (08:30)
[2016-10-07] MEDS ORDERED: XANA1TAB2 PO (08:30)
[2016-10-07] MEDS ORDERED: ULTR50TA5 PO (08:30)
[2016-10-07] MEDS ORDERED: HYDR25TA5 PO (08:30)
[2016-10-07] MEDS ORDERED: CARV3.12 PO (08:30)
[2016-10-07] MEDS ORDERED: ALLO300T2 PO (08:30)
[2016-10-07] MEDS ORDERED: IPRASOL NEB (08:30)
== END 2016-09-26 16:02 | DRG 988 ==
LOC: NEPE 13:19 → NEDA 18:57 → NEPFCDU 09-20 02:16 → N07B 09-20 12:20
PROVIDERS: ADMIT Surgery; ATTEND Surgery
PROC: 0HQ1XZZ Repair Face Skin, External Approach (ICD-10-PCS; 2016-09-19)
PROC: 04L43DZ Occlusion of Splenic Artery with Intraluminal Device, Percutaneous Approach (ICD-10-PCS; principal; 2016-09-22)
PROC: 30233N1 Transfusion of Nonautologous Red Blood Cells into Peripheral Vein, Percutaneous Approach (ICD-10-PCS; 2016-09-22)
DX: S36.039A Unspecified laceration of spleen, initial encounter (principal); I31.3 Pericardial effusion (noninflammatory); J90 Pleural effusion, not elsewhere classified; M50.21 Other cervical disc displacement, high cervical region; D64.9 Anemia, unspecified; I10 Essential (primary) hypertension; S51.012A Laceration without foreign body of left elbow, initial encounter; S01.112A Laceration without foreign body of left eyelid and periocular area, initial encounter; J98.11 Atelectasis; E86.0 Dehydration; N39.3 Stress incontinence (female) (male); J45.909 Unspecified asthma, uncomplicated; D72.829 Elevated white blood cell count, unspecified; K21.9 Gastro-esophageal reflux disease without esophagitis; H91.90 Unspecified hearing loss, unspecified ear; M10.9 Gout, unspecified; M25.511 Pain in right shoulder; E78.00 Pure hypercholesterolemia, unspecified; E78.5 Hyperlipidemia, unspecified; F32.9 Major depressive disorder, single episode, unspecified; F41.9 Anxiety disorder, unspecified; H81.90 Unspecified disorder of vestibular function, unspecified ear; R39.15 Urgency of urination; R30.0 Dysuria; R35.1 Nocturia; R29.6 Repeated falls; W01.0XXA Fall on same level from slipping, tripping and stumbling without subsequent striking against object, initial encounter; Y92.009 Unspecified place in unspecified non-institutional (private) residence as the place of occurrence of the external cause; Z85.810 Personal history of malignant neoplasm of tongue; Z23 Encounter for immunization; Z88.0 Allergy status to penicillin; Z88.1 Allergy status to other antibiotic agents; Z88.5 Allergy status to narcotic agent; Z88.2 Allergy status to sulfonamides
CPT/HCPCS: 12011; 36246; 36430; 37243; 70450; 71010; 71250; 71260; 72125; 73030; 74176; 74177; 75726; 75774; 76937; 80048; 80076; 81001; 82948; 83735; 84550; 85014; 85018; 85025; 85027; 85610; 85730; 86850; 86900; 86901; 86920; 90471; 90715; 90732; 90734; 94150; 94640; 94664; 94667; 94668; 96374; 96375; 96376; 99152; 99153; C1769; C1887; C1894; G0009; G0269; J0131; J1885; J1956; J2250; J2270; J2310; J2405; J3010; J3480; J7030; J7040; J7050; P9016; Q9967

== ENCOUNTER → 2017-06-05 | Day surgery (SDC) | payer MEDICARE ==
[~2017-06-05] MED LIST changes: +ALLO300T2 PO; +BENZ100 PO; +BUPIVACAINE/EPINEPHRINE 0.5% PF 10 ML VIAL ONE; +BUPR300T PO; -CARB0.5D16 RIGHT EYE; +CARV3.12 PO; -COMMODE 3:1; -CYMB60CA PO; +DIPH25CA PO; -HCTZ25 PO; +HYDR25TA5 PO; +IPRASOL NEB; +LACTATED RINGER'S 1000 ML INJ 1,000 ML ONE; -LISI40TA PO; +METO10TA PO; +MIDAZOLAM HCL 2 MG/2 ML VIAL ONE; +MIRA50TA PO; +MORPHINE SULFATE 4 MG/ML INJ ONE; +NEUR300C PO; +ONDANSETRON HCL 4 MG/2 ML VIAL IV PUSH ONE; +PANT40TA3 PO; +PARO20TA2 PO; +PROPOFOL 200 MG/20 ML AMP IV ONE; -PROT40TA PO; +SODIUM CHLORIDE 0.9% 250 ML ADDBAG IV ONE; -TAB-TAB PO; -TOPR50TA PO; +ULTR50TA5 PO; +VANCOMYCIN 500 MG VIAL ONE; -WALKER ROLLING; -WHEELCHAIR RENTAL RA; +WHEEMIS3; +XANA1TAB2 PO; -XANA1TAB6 PO; -ZOLP10TA3 PO
--- NOTE | 2017-06-05 20:27 | TN ---
cc: AYAN MADISON MD DATE OF SURGERY: 06/05/2017. PREOPERATIVE DIAGNOSIS: 1. Right knee torn medial meniscus, possible torn lateral meniscus. 2. Right ankle retained hardware. 3. Left hand stenosing tenosynovitis ring finger (trigger finger). POSTOPERATIVE DIAGNOSIS: 1. Right knee torn medial meniscus, possible torn lateral meniscus. 2. Right ankle retained hardware. 3. Left hand stenosing tenosynovitis ring finger (trigger finger). OPERATIVE PROCEDURE PERFORMED: 1. Right knee arthroscopy with partial medial and lateral meniscectomy. 2. Right ankle removal of hardware. 3. Left hand release of trigger finger, ring finger. SURGEON: Ayan Madison MD. DESCRIPTION OF THE PROCEDURE IN DETAIL: Informed consent was obtained. The patient was taken to the operating room and placed in the supine position on the operating table. She was administered a general anesthesia by Dr. Paige of the anesthesia department. At that time, the left arm had a tourniquet applied and it was prepped with Betadine soap followed by Betadine paint from the tourniquet to the tips of the fingers. Draping commenced with sterile towel, sterile U-drape, a stockinette was applied and an extremity drape was applied. At that time, a time out was held and confirmed. The patient had been given Vancomycin 500 milligrams prior to the initiation of the operative procedure. At that time, the arm was elevated. The tourniquet was inflated to 250 mmHg. A marking pen was utilized to map out the proposed skin incision over the volar aspect of the palm of the hand and in line with the fourth ray. An incision was then made and the skin and subcutaneous tissue was divided. The dissection was carried down over the flexor tendon sheath. The A1 jesse was identified and was released. At that time, the tourniquet was deflated and the total tourniquet time on the hand was 4 minutes. The wound was then closed with a 4-0 nylon sutures. Xeroform, 4x4's, Sof-Rol and an CRISTHIAN wrap were applied to the patient's hand. The sterile field was then broken down. A tourniquet was applied to the right thigh and the right lower extremity was then prepped from the tourniquet to the tips of the toes with Betadine soap followed by Betadine paint and draping commenced with sterile U-drape, sterile stockinette was applied to the foot and calf and this was wrapped with Coban and an extremity drape was applied. The table was elevated to maximum height. The tourniquet was inflated to 300 mmHg. The leg was allowed to flex over the side of the operating room table. An 18 gauge spinal needle was placed in the region of the lateral infrapatellar portal. This region was infiltrated with 4 mL of 0.25% Marcaine with epinephrine. Infiltration was also performed in the medial infrapatellar portal and transpatellar tendon portal region. A small incision was made with an 11-blade in the region of the transpatellar tendon portal and an inflow cannula was placed. A second incision was placed in the region of the lateral infrapatellar portal. The arthroscopic cannula was placed. Diagnostic arthroscopy commenced. The medial compartment examined. The patient was found to have a degenerative tearing in the medial meniscus, both posteriorly and in the medial portion in zone 2. There were significant arthritic changes with loss of articular cartilage in the medial femoral condyle and medial tibial plateau. A medial portal was established. The meniscus was probed and then debrided with upbiting basket forceps and a Jn meniscal shaver. Once satisfactory debridement of the medial compartment was completed, the leg was placed in a figure-four position. The scope was maneuvered into the lateral compartment. There was fraying of the edge in the lateral meniscus which involved primarily zones 5 and 6 of the lateral meniscus. The popliteus tendon was intact and there did appear to be a satisfactory soft tissue bridge in front of the popliteus tendon. Utilizing upbiting basket forceps and [place] meniscal shaver, the lateral meniscus was also debrided. It was noted that there were only very minimal chondromalacic changes noted on the lateral side of the knee. The lateral compartment basically looked good. The scope was maneuvered over the intercondylar notch as the leg was flexed over the side of the operating table. Again the anterior and posterior cruciate ligaments were intact. The scope was then placed in the suprapatellar pouch as the leg was extended. There were some chondromalacic changes noted in the patellofemoral joint. There were some degenerative changes also noted. There were no pathologic plica seen. At that time the knee was irrigated and suctioned and all cannulas were removed. Each portal was closed with a single 4-0 nylon interrupted stitch. A small incision was then made over the lateral aspect of the patient's ankle where there was a retained syndesmosis screw. Utilizing a hex head screwdriver, the syndesmosis screw was removed. This area was irrigated and then again closed with 4-0 nylon interrupted stitches. Band-Aids, 4x4s, Sof-Rol and Cristhian wrap were then applied to the patient's knee and ankle. The tourniquet was deflated and total tourniquet time was 38 minutes. The patient tolerated the procedure well and was then taken to the recovery room in stable condition. At the completion of the procedure, the sponge count, instrument count and needle count were correct. The estimated blood was less than 10 cc. MD SRUTHI Schulz/JANNETTE /6:33 PM /8:06 PM
== END | disposition home or self-care (01) ==
LOC: ESDC 12:01
PROVIDERS: ATTEND Orthopaedic Surgery
DX: S83.241A Other tear of medial meniscus, current injury, right knee, initial encounter (principal); S83.281A Other tear of lateral meniscus, current injury, right knee, initial encounter; T84.84XA Pain due to internal orthopedic prosthetic devices, implants and grafts, initial encounter; M65.342 Trigger finger, left ring finger
CPT/HCPCS: 01400; 01480; 01810; 20680; 26055; 29880; J2250; J2270; J2405; J3010; J3370; J7120